=== PATIENT | female | born 1985 | race Caucasian/White ===

== ENCOUNTER 2016-07-01 19:28 | Emergency (ER) | payer MEDICARE, MEDICAID ==
[2016-07-01] MEDS ORDERED: NORCO 5/325MG TABLET (BULK) As Ordered ONE (21:04)
[2016-07-01] MEDS ORDERED: traMADol 50 MG TAB As Ordered ONE (21:20)
--- NOTE | 2016-07-01 21:34 | EDDOCDS ---
Physician Documentation [facility] Name: Ruth Ann Raya Age: 30 yrs Sex: Female : 1985 Arrival Date: 07/01/2016 Time: 19:28 Bed TR7 Private MD: Johnathan Levi Disposition: 07/01/16 21:05 Discharged to Home/Self Care. Impression: Nondisplaced fracture of medial phalanx of right lesser toe(s). - Condition is Stable. - Discharge Instructions: Toe Fracture. - Prescriptions for Ultram 50 mg Oral Tablet - take 1 tablet by ORAL route every 6 hours As needed MDD: 4 tabs; 16 tablet. - Medication Reconciliation, Local Pharmacy Hours form. - Follow up: Emergency Department; When: As needed; Reason: Worsening of conditions. Follow up: Drew Du DPM; When: Call to arrange an appointment; Reason: Wound/Symptom Recheck, Recheck today's complaints, Worsening of conditions, Continuance of care. - Problem is an ongoing problem. - Symptoms are unchanged. Historical: - Allergies: Zantac; Vancomycin; PENICILLINS; Erythromycin; ceftriaxone; Adhesives; Hydrocodone-Acetaminophen (Rash); - Home Meds: 1. carvedilol 6.25 mg oral tab 1 tab 2 times per day (Last dose: 07/01/2016 09:00) 2. lisinopril 10 mg oral tab (Last dose: 07/01/2016 10:00) 3. amlodipine 5 mg Oral tab 1 tab BID (Last dose: 07/01/2016 10:00) 4. Renvela 800 mg oral tab 2 tabs each meal (Last dose: 07/01/2016 16:00) 5. foslenol 1000 mg three times a day (Last dose: 07/01/2016 16:00) 6. Sensipar 60 mg oral tab 2 times per day (Last dose: 07/01/2016 10:00) 7. Vitamin D Oral 15100 unit weekly (Last dose: Unknown) - PMHx: ESRD; hypoparathyroid; Hypertension; - PSHx: AV Fistula- Right arm; parathyroidectomy; - Social history: Smoking status: Patient uses tobacco products, heavy tobacco smoker. Patient/guardian denies using alcohol, street drugs, No barriers to communication noted, The patient speaks fluent Luxembourgish, Speaks appropriately for age. - Family history: Not pertinent. - : The pt / caregiver states he / she is not on anticoagulants. Home medication list is obtained from the patient. - Exposure Risk Screening:: None identified. 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 4 in. (162.56 cm) (R); 20:38 BP 203 / 105; Pulse 84; Resp 18; lf1 19:29 Body Mass Index 22.33 (59.00 kg, 162.56 cm) dd6 20:38 Pt reports that she is due for her twice daily BP meds lf1 MDM: 19:54 Foot, Complete Ordered. EDMS 21:02 [facility] [place] Nursing [place] ordered. cc10 21:16 traMADol 50mg- 4 pack 1 packets PO Per package directions; Dispense with patient. Take cc10 1 tab every 6 hours as needed. ordered. 21:28 Financial registration complete. mpb 21:29 [facility] Payment Agreement was scanned into [employer] and attached to record. mpb Administered Medications: 21:11 CANCELLED (Patient Refused): HYDROcodone-acetaminophen 4 pack- 5 mg-325 mg 1 packets PO lf1 Per package directions; Dispense with patient. 1 po q4h prn for pain 21:29 Drug: traMADol 50mg- 4 pack 1 packets [tramadol 50 mg tablet (1 tabs)] {Co-Signature: lf1 rs3 (Sandy Fried RN).} Route: PO; 21:30 Follow up: Response: Med's dispensed home lf1 Signatures: Dispatcher [employer] EDMS Elda Mejias RN RN lf1 Nishi Kyle RN RN ttb Rajinder Alcantar PA-C PA-C cc10 Gonzalo Giron, Reg Reg mpb Sandy Fried RN rs3 The chart was reviewed and I authenticate all verbal orders and agree with the evaluation and treatment provided.Corrections: (The following items were deleted from the chart) 21:11 21:01 HYDROcodone-acetaminophen 4 pack- 5 mg-325 mg 1 packets PO Per package lf1 directions; Dispense with patient. 1 po q4h prn for pain ordered. cc10 21:11 21:11 HYDROcodone-acetaminophen 4 pack- 5 mg-325 mg 1 packets PO Per package lf1 directions; Dispense with patient. 1 po q4h prn for pain ordered. lf1 Attachments: 21:29 [facility] [place] [facility] [place] Agreement mpb MTDD
--- NOTE | 2016-07-01 21:34 | EDDOCDS ---
Nurse's Notes [facility] Name: Ruth Ann Raya Age: 30 yrs Sex: Female : 1985 Arrival Date: 07/01/2016 Time: 19:28 Bed TR7 Private MD: Johnathan Levi Diagnosis: Nondisplaced fracture of medial phalanx of right lesser toe(s) Presentation: 07/01 19:44 Presenting complaint: Patient states: pt stubbed her toe on night. Painful to ttb walk now. Bruising noted. Pt concerned and would like an xray of foot. Adult Sepsis Screening: The patient does not have new or worsening altered mentation. Patient's respiratory rate is less than 22. Systolic blood pressure is greater than 100. Patient has a qSOFA score of 0- Negative Sepsis Screen. Suicide/Homicide risk assessment- the patient denies having any suicidal and/or homicidal ideations and does not present with any other emotional, behavioral or mental health complaints. 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 Transition of care: patient was not received from another setting of care. 19:44 Acuity: RICKY Level 4 ttb 19:44 Method Of Arrival: Walkin/Carried/Asstd ttb Triage Assessment: 19:51 General: Appears in no apparent distress, well nourished, well groomed, Behavior is ttb appropriate for age, cooperative, pleasant. Pain: Location: right foot Pain currently is 7 out of 10 on a pain scale. HIV screening NA for this visit Offered previously. Neurological: Level of Consciousness is awake, alert. Cardiovascular: Chest pain is denied. Respiratory: No deficits noted. Airway is patent Denies cough, shortness of breath. GI: Denies nausea, vomiting, pain. Derm: Skin is normal, right foot bruising near 4th toe. Musculoskeletal: Reports pain in right foot. Injury Description: stubbed toe on baby gait. BI TESTER: 19:51 LMP 06/16/2016 ttb Historical: - Allergies: Zantac; Vancomycin; PENICILLINS; Erythromycin; ceftriaxone; Adhesives; Hydrocodone-Acetaminophen (Rash); - Home Meds: 1. carvedilol 6.25 mg oral tab 1 tab 2 times per day (Last dose: 07/01/2016 09:00) 2. lisinopril 10 mg oral tab (Last dose: 07/01/2016 10:00) 3. amlodipine 5 mg Oral tab 1 tab BID (Last dose: 07/01/2016 10:00) 4. Renvela 800 mg oral tab 2 tabs each meal (Last dose: 07/01/2016 16:00) 5. foslenol 1000 mg three times a day (Last dose: 07/01/2016 16:00) 6. Sensipar 60 mg oral tab 2 times per day (Last dose: 07/01/2016 10:00) 7. Vitamin D Oral 70474 unit weekly (Last dose: Unknown) - PMHx: ESRD; hypoparathyroid; Hypertension; - PSHx: AV Fistula- Right arm; parathyroidectomy; - Social history: Smoking status: Patient uses tobacco products, heavy tobacco smoker. Patient/guardian denies using alcohol, street drugs, No barriers to communication noted, The patient speaks fluent Wallisian, Speaks appropriately for age. - Family history: Not pertinent. - : The pt / caregiver states he / she is not on anticoagulants. Home medication list is obtained from the patient. - Exposure Risk Screening:: None identified. Screenin:38 Screening information is obtained from the patient. Fall risk: No risks identified. lf1 Assistance ADL's: requires no assistance with activities of daily living. Abuse/DV Screen: The patient / caregiver reports he/she is: not in a situation that causes fear, pain or injury. Nutritional screening: On renal diet. Advance Directives: Currently, there is a health care proxy, Jayne Raya (mother). home support is adequate. Assessment: 20:38 Adult Sepsis Screening: The patient does not have new or worsening altered mentation. lf1 Patient's respiratory rate is less than 22. Systolic blood pressure is greater than 100. Patient has a qSOFA score of 0- Negative Sepsis Screen. General: Appears comfortable, Behavior is cooperative. Pain: Location: right second toe Pain currently is 7 out of 10 on a pain scale. Pain began 4 days ago Aggravated by weight bearing. Neurological: Level of Consciousness is awake, alert. EENT: No deficits noted. Respiratory: Respiratory effort is even, unlabored. GI: Reports nausea, vomiting. Derm: Bruising that is dark purple, on right second toe Swollen area noted. Injury Description: stubbed toe on metal baby gate. 21:30 General: Appears in no apparent distress, comfortable, Behavior is cooperative. Pain: lf1 Location: right second toe. Neurological: Level of Consciousness is awake, alert. Respiratory: Respiratory effort is even, unlabored. GI: Denies nausea, vomiting. Derm: Swollen area noted on right second toe. 21:32 General: Pt reports she will be taking her regular BP meds when she gets home, provider lf1 aware. . Vital Signs: 19:29 BP 209 / 109; Pulse 92; Resp 18 S; Temp 97.1(O); Pulse Ox 100% on R/A; Weight 59 kg; dd6 Height 5 ft. 4 in. (162.56 cm) (R); 20:38 BP 203 / 105; Pulse 84; Resp 18; lf1 19:29 Body Mass Index 22.33 (59.00 kg, 162.56 cm) dd6 20:38 Pt reports that she is due for her twice daily BP meds lf1 Vitals: 19:29 Log In Time: July 01, 2016 at 19:27. dd6 ED Course: 19:29 Patient visited by Saravanan Marsh PCA. dd6 19:29 Johnathan Levi is Private Physician. dd6 19:29 Patient moved to Waiting dd6 19:30 Patient moved to Pre RCE dd6 19:45 Triage Initiated ttb 20:04 Patient moved to Triage 3 ar3 20:38 Patient visited by Elda Mejias,ALICIA. lf1 20:38 The patient / caregiver is instructed regarding the plan of care and ED course. lf1 20:43 Patient visited by Elda Mejias RN. lf1 20:50 Rajinder Alcantar PA-C is PHCP. cc10 20:50 Tony Beach DO is Attending Physician. cc10 20:50 Patient visited by Rajinder Alcantar PA-C. cc10 20:50 Patient visited by Rajinder Alcantar PA-C. cc10 21:05 Drew Du DPM is Referral Physician. cc10 21:28 Patient visited by Elda Mejias RN. lf1 21:29 [facility] Payment Agreement was scanned into [employer] and attached to record. mpb 21:30 Patient moved to TR7 ar3 21:30 No IV's were initiated during this patient's visit. No procedures done that require lf1 assistance. Administered Medications: 21:11 CANCELLED (Patient Refused): HYDROcodone-acetaminophen 4 pack- 5 mg-325 mg 1 packets PO lf1 Per package directions; Dispense with patient. 1 po q4h prn for pain 21:29 Drug: traMADol 50mg- 4 pack 1 packets [tramadol 50 mg tablet (1 tabs)] {Co-Signature: lf1 rs3 (Sandy Fried RN).} Route: PO; 21:30 Follow up: Response: Med's dispensed home lf1 Order Results: There are currently no results for this order. Outcome: 21:05 Discharge ordered by Provider. cc10 21:30 Discharge Assessment: Patient awake, alert and oriented x 3. No cognitive and/or lf1 functional deficits noted. Patient verbalized understanding of disposition instructions. Patient awake and alert. Oriented to person, place and time. Patient verbalized understanding of disposition instructions. Patient has no functional deficits. patient administered narcotics - yes. Pt provided with safe discharge. The following High Risk Discharge criteria are identified: None. Discharged to home via wheelchair, with family. Condition: unchanged. Discharge instructions given to patient, Instructed on discharge instructions, follow up and referral plans. medication usage, no driving heavy equipment, Demonstrated understanding of instructions, medications, Pt was receptive of discharge instructions/ teaching. Prescriptions given X 1. No special radiology studies were completed. Property :Personal belongings accompany Pt. 21:33 Patient left the ED. lf1 Signatures: Elda Mejias RN RN lf1 Saravanan Marsh, BUS MATRON BUS MATRON dd6 Francesca Pierson, BUS MATRON BUS MATRON ar3 Nishi Kyle RN RN ttb Rajinder Alcantar, PA-Андрей PA-C cc10 Gonzalo iGron, Reg Reg mpb Sandy Fried RN rs3 Corrections: (The following items were deleted from the chart) 21:11 21:09 HYDROcodone-acetaminophen 4 pack- 5 mg-325 mg 1 packets PO lf1 lf1 MTDD
--- NOTE | 2016-07-02 08:09 | REP ---
Clinical: Trauma. Technique: AP, lateral, bilateral oblique views of the right foot. Findings: No obvious acute fracture or dislocation appreciated. Oblique image demonstrates subtle irregularity at the base of the fourth middle phalanx which is likely normal, but should be correlated with mechanism of injury and point of maximal tenderness to exclude subtle avulsion injury. Skeletal structures, joint spaces, and surrounding soft tissues appear otherwise normal. Impression: No obvious acute fracture or dislocation; see above. If the patient remains symptomatic consider repeat evaluation in 5-7 days. Signed by Adama Rodarte MD 07/02/2016 08:00 A
--- NOTE | 2016-07-03 22:34 | EDDOCDS ---
Nurse's Notes [facility] Name: Ruth Ann Raya Age: 30 yrs Sex: Female : 1985 Arrival Date: 07/01/2016 Time: 19:28 Bed TR7 Private MD: Johnathan Levi Diagnosis: Nondisplaced fracture of medial phalanx of right lesser toe(s) Presentation: 07/01 19:44 Presenting complaint: Patient states: pt stubbed her toe on night. Painful to ttb walk now. Bruising noted. Pt concerned and would like an xray of foot. Adult Sepsis Screening: The patient does not have new or worsening altered mentation. Patient's respiratory rate is less than 22. Systolic blood pressure is greater than 100. Patient has a qSOFA score of 0- Negative Sepsis Screen. Suicide/Homicide risk assessment- the patient denies having any suicidal and/or homicidal ideations and does not present with any other emotional, behavioral or mental health complaints. 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 Transition of care: patient was not received from another setting of care. 19:44 Acuity: RICKY Level 4 ttb 19:44 Method Of Arrival: Walkin/Carried/Asstd ttb Triage Assessment: 19:51 General: Appears in no apparent distress, well nourished, well groomed, Behavior is ttb appropriate for age, cooperative, pleasant. Pain: Location: right foot Pain currently is 7 out of 10 on a pain scale. HIV screening NA for this visit Offered previously. Neurological: Level of Consciousness is awake, alert. Cardiovascular: Chest pain is denied. Respiratory: No deficits noted. Airway is patent Denies cough, shortness of breath. GI: Denies nausea, vomiting, pain. Derm: Skin is normal, right foot bruising near 4th toe. Musculoskeletal: Reports pain in right foot. Injury Description: stubbed toe on baby gait. 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 carvedilol 6.25 mg oral tab 1 tab 2 times per day (Last dose: 07/01/2016 09:00) 2. lisinopril 10 mg oral tab (Last dose: 07/01/2016 10:00) 3. amlodipine 5 mg Oral tab 1 tab BID (Last dose: 07/01/2016 10:00) 4. Renvela 800 mg oral tab 2 tabs each meal (Last dose: 07/01/2016 16:00) 5. foslenol 1000 mg three times a day (Last dose: 07/01/2016 16:00) 6. Sensipar 60 mg oral tab 2 times per day (Last dose: 07/01/2016 10:00) 7. Vitamin D Oral 61377 unit weekly (Last dose: Unknown) - PMHx: ESRD; hypoparathyroid; Hypertension; - PSHx: AV Fistula- Right arm; parathyroidectomy; - Social history: Smoking status: Patient uses tobacco products, heavy tobacco smoker. Patient/guardian denies using alcohol, street drugs, No barriers to communication noted, The patient speaks fluent Nigerian, Speaks appropriately for age. - Family history: Not pertinent. - : The pt / caregiver states he / she is not on anticoagulants. Home medication list is obtained from the patient. - Exposure Risk Screening:: None identified. Screenin:38 Screening information is obtained from the patient. Fall risk: No risks identified. lf1 Assistance ADL's: requires no assistance with activities of daily living. Abuse/DV Screen: The patient / caregiver reports he/she is: not in a situation that causes fear, pain or injury. Nutritional screening: On renal diet. Advance Directives: Currently, there is a health care proxy, Jayne Raya (mother). home support is adequate. Assessment: 20:38 Adult Sepsis Screening: The patient does not have new or worsening altered mentation. lf1 Patient's respiratory rate is less than 22. Systolic blood pressure is greater than 100. Patient has a qSOFA score of 0- Negative Sepsis Screen. General: Appears comfortable, Behavior is cooperative. Pain: Location: right second toe Pain currently is 7 out of 10 on a pain scale. Pain began 4 days ago Aggravated by weight bearing. Neurological: Level of Consciousness is awake, alert. EENT: No deficits noted. Respiratory: Respiratory effort is even, unlabored. GI: Reports nausea, vomiting. Derm: Bruising that is dark purple, on right second toe Swollen area noted. Injury Description: stubbed toe on metal baby gate. 21:30 General: Appears in no apparent distress, comfortable, Behavior is cooperative. Pain: lf1 Location: right second toe. Neurological: Level of Consciousness is awake, alert. Respiratory: Respiratory effort is even, unlabored. GI: Denies nausea, vomiting. Derm: Swollen area noted on right second toe. 21:32 General: Pt reports she will be taking her regular BP meds when she gets home, provider lf1 aware. . Vital Signs: 19:29 BP 209 / 109; Pulse 92; Resp 18 S; Temp 97.1(O); Pulse Ox 100% on R/A; Weight 59 kg; dd6 Height 5 ft. 4 in. (162.56 cm) (R); 20:38 BP 203 / 105; Pulse 84; Resp 18; lf1 19:29 Body Mass Index 22.33 (59.00 kg, 162.56 cm) dd6 20:38 Pt reports that she is due for her twice daily BP meds lf1 Vitals: 19:29 Log In Time: July 01, 2016 at 19:27. dd6 ED Course: 19:29 Patient visited by Saravanan Marsh PCA. dd6 19:29 Johnathan Levi is Private Physician. dd6 19:29 Patient moved to Waiting dd6 19:30 Patient moved to Pre RCE dd6 19:45 Triage Initiated ttb 20:04 Patient moved to Triage 3 ar3 20:38 Patient visited by Elda Mejias,ALICIA. lf1 20:38 The patient / caregiver is instructed regarding the plan of care and ED course. lf1 20:43 Patient visited by Elda Mejias RN. lf1 20:50 Rajinder Alcantar PA-C is PHCP. cc10 20:50 Tony Beach DO is Attending Physician. cc10 20:50 Patient visited by Rajinder Alcantar PA-C. cc10 20:50 Patient visited by Rajinder Alcantar PA-C. cc10 21:05 Drew Du DPM is Referral Physician. cc10 21:28 Patient visited by Elda Mejias RN. lf1 21:29 [facility] Payment Agreement was scanned into [employer] and attached to record. mpb 21:30 Patient moved to TR7 ar3 21:30 No IV's were initiated during this patient's visit. No procedures done that require lf1 assistance. 07/02 01:15 T-Sheet-- Draft Copy was scanned into [employer] and attached to record. hs2 08:43 Foot, Complete Returned. EDMS Administered Medications: 07/01 21:11 CANCELLED (Patient Refused): HYDROcodone-acetaminophen 4 pack- 5 mg-325 mg 1 packets PO lf1 Per package directions; Dispense with patient. 1 po q4h prn for pain 21:29 Drug: traMADol 50mg- 4 pack 1 packets [tramadol 50 mg tablet (1 tabs)] {Co-Signature: lf1 rs3 (Sandy Fried RN).} Route: PO; 21:30 Follow up: Response: Med's dispensed home lf1 Order Results: Radiology Order: Foot, Complete Test: Foot, Complete REASON FOR EXAMINATION: Trauma; Clinical: Trauma.; ; Technique: AP, lateral, bilateral oblique views of the right foot.; ; Findings:; No obvious acute fracture or dislocation appreciated. Oblique image demonstrates; subtle irregularity at the base of the fourth middle phalanx which is likely; normal, but should be correlated with mechanism of injury and point of maximal; tenderness to exclude subtle avulsion injury. Skeletal structures, joint spaces,; and surrounding soft tissues appear otherwise normal.; ; Impression:; No obvious acute fracture or dislocation; see above. If the patient remains; symptomatic consider repeat evaluation in 5-7 days.; ; ; Signed by; Adama Rodarte MD 07/02/2016 08:00 A; Outcome: 21:05 Discharge ordered by Provider. cc10 21:30 Discharge Assessment: Patient awake, alert and oriented x 3. No cognitive and/or lf1 functional deficits noted. Patient verbalized understanding of disposition instructions. Patient awake and alert. Oriented to person, place and time. Patient verbalized understanding of disposition instructions. Patient has no functional deficits. patient administered narcotics - yes. Pt provided with safe discharge. The following High Risk Discharge criteria are identified: None. Discharged to home via wheelchair, with family. Condition: unchanged. Discharge instructions given to patient, Instructed on discharge instructions, follow up and referral plans. medication usage, no driving heavy equipment, Demonstrated understanding of instructions, medications, Pt was receptive of discharge instructions/ teaching. Prescriptions given X 1. No special radiology studies were completed. Property :Personal belongings accompany Pt. 21:33 Patient left the ED. lf1 Signatures: Dispatcher [employer] EDMS Elda MejiasRN RN lf1 Saravanan Marsh, SHANK SORTER SHANK SORTER dd6 Francesca Pierson, SHANK SORTER SHANK SORTER ar3 Nishi Kyle RN RN ttb Rajinder Alcantar, PA-C PA-C cc10 Gonzalo Giron, Reg Reg mpb Josie Chen, Reg Reg hs2 Sandy Fried RN rs3 Corrections: (The following items were deleted from the chart) 21:11 21:09 HYDROcodone-acetaminophen 4 pack- 5 mg-325 mg 1 packets PO lf1 lf1 Chart Complete MTDD
--- NOTE | 2016-07-03 22:34 | EDDOCDS ---
Physician Documentation [facility] Name: Ruth Ann Raya Age: 30 yrs Sex: Female : 1985 Arrival Date: 07/01/2016 Time: 19:28 Bed TR7 Private MD: Johnathan Levi Disposition: 07/01/16 21:05 Discharged to Home/Self Care. Impression: Nondisplaced fracture of medial phalanx of right lesser toe(s). - Condition is Stable. - Discharge Instructions: Toe Fracture. - Prescriptions for Ultram 50 mg Oral Tablet - take 1 tablet by ORAL route every 6 hours As needed MDD: 4 tabs; 16 tablet. - Medication Reconciliation, Local Pharmacy Hours form. - Follow up: Emergency Department; When: As needed; Reason: Worsening of conditions. Follow up: Drew Du DPM; When: Call to arrange an appointment; Reason: Wound/Symptom Recheck, Recheck today's complaints, Worsening of conditions, Continuance of care. - Problem is an ongoing problem. - Symptoms are unchanged. Historical: - Allergies: Zantac; Vancomycin; PENICILLINS; Erythromycin; ceftriaxone; Adhesives; Hydrocodone-Acetaminophen (Rash); - Home Meds: 1. carvedilol 6.25 mg oral tab 1 tab 2 times per day (Last dose: 07/01/2016 09:00) 2. lisinopril 10 mg oral tab (Last dose: 07/01/2016 10:00) 3. amlodipine 5 mg Oral tab 1 tab BID (Last dose: 07/01/2016 10:00) 4. Renvela 800 mg oral tab 2 tabs each meal (Last dose: 07/01/2016 16:00) 5. foslenol 1000 mg three times a day (Last dose: 07/01/2016 16:00) 6. Sensipar 60 mg oral tab 2 times per day (Last dose: 07/01/2016 10:00) 7. Vitamin D Oral 33069 unit weekly (Last dose: Unknown) - PMHx: ESRD; hypoparathyroid; Hypertension; - PSHx: AV Fistula- Right arm; parathyroidectomy; - Social history: Smoking status: Patient uses tobacco products, heavy tobacco smoker. Patient/guardian denies using alcohol, street drugs, No barriers to communication noted, The patient speaks fluent Syrian, Speaks appropriately for age. - Family history: Not pertinent. - : The pt / caregiver states he / she is not on anticoagulants. Home medication list is obtained from the patient. - Exposure Risk Screening:: None identified. 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 4 in. (162.56 cm) (R); 20:38 BP 203 / 105; Pulse 84; Resp 18; lf1 19:29 Body Mass Index 22.33 (59.00 kg, 162.56 cm) dd6 20:38 Pt reports that she is due for her twice daily BP meds lf1 MDM: 19:54 Foot, Complete Ordered. EDMS 21:02 [facility] [place]. Nursing [place] ordered. cc10 21:16 traMADol 50mg- 4 pack 1 packets PO Per package directions; Dispense with patient. Take cc10 1 tab every 6 hours as needed. ordered. 21:28 Financial registration complete. [facility] 21:29 [facility] Payment Agreement was scanned into [employer] and attached to record. [facility] 07/02 01:15 T-Sheet-- Draft Copy was scanned into [employer] and attached to record. hs2 Administered Medications: 07/01 21:11 CANCELLED (Patient Refused): HYDROcodone-acetaminophen 4 pack- 5 mg-325 mg 1 packets PO lf1 Per package directions; Dispense with patient. 1 po q4h prn for pain 21:29 Drug: traMADol 50mg- 4 pack 1 packets [tramadol 50 mg tablet (1 tabs)] {Co-Signature: lf1 rs3 (Sandy Fried RN).} Route: PO; 21:30 Follow up: Response: Med's dispensed home lf1 Signatures: Dispatcher [employer] EDMS Elda Mejias RN RN lf1 Nishi Kyle RN RN ttb Rajinder Alcantar, PAAnnabelC PA-C cc10 Gonzalo Giron, Reg Reg mpb Josie Chen, Reg Reg hs2 Sandy Fried RN rs3 The chart was reviewed and I authenticate all verbal orders and agree with the evaluation and treatment provided.Corrections: (The following items were deleted from the chart) 21:11 21:01 HYDROcodone-acetaminophen 4 pack- 5 mg-325 mg 1 packets PO Per package lf1 directions; Dispense with patient. 1 po q4h prn for pain ordered. cc10 21:11 21:11 HYDROcodone-acetaminophen 4 pack- 5 mg-325 mg 1 packets PO Per package lf1 directions; Dispense with patient. 1 po q4h prn for pain ordered. lf1 Attachments: 21:29 [facility] Payment Agreement mpb 07/02 01:15 T-Sheet-- Draft Copy hs2 Chart Complete MTDD
--- NOTE | 2016-07-03 22:34 | EDDOCDS ---
Physician Documentation [facility] Name: Ruth Ann Raya Age: 30 yrs Sex: Female : 1985 Arrival Date: 07/01/2016 Time: 19:28 Bed TR7 Private MD: Johnathan Levi Disposition: 07/01/16 21:05 Discharged to Home/Self Care. Impression: Nondisplaced fracture of medial phalanx of right lesser toe(s). - Condition is Stable. - Discharge Instructions: Toe Fracture. - Prescriptions for Ultram 50 mg Oral Tablet - take 1 tablet by ORAL route every 6 hours As needed MDD: 4 tabs; 16 tablet. - Medication Reconciliation, Local Pharmacy Hours form. - Follow up: Emergency Department; When: As needed; Reason: Worsening of conditions. Follow up: Drew Du DPM; When: Call to arrange an appointment; Reason: Wound/Symptom Recheck, Recheck today's complaints, Worsening of conditions, Continuance of care. - Problem is an ongoing problem. - Symptoms are unchanged. Historical: - Allergies: Zantac; Vancomycin; PENICILLINS; Erythromycin; ceftriaxone; Adhesives; Hydrocodone-Acetaminophen (Rash); - Home Meds: 1. carvedilol 6.25 mg oral tab 1 tab 2 times per day (Last dose: 07/01/2016 09:00) 2. lisinopril 10 mg oral tab (Last dose: 07/01/2016 10:00) 3. amlodipine 5 mg Oral tab 1 tab BID (Last dose: 07/01/2016 10:00) 4. Renvela 800 mg oral tab 2 tabs each meal (Last dose: 07/01/2016 16:00) 5. foslenol 1000 mg three times a day (Last dose: 07/01/2016 16:00) 6. Sensipar 60 mg oral tab 2 times per day (Last dose: 07/01/2016 10:00) 7. Vitamin D Oral 57569 unit weekly (Last dose: Unknown) - PMHx: ESRD; hypoparathyroid; Hypertension; - PSHx: AV Fistula- Right arm; parathyroidectomy; - Social history: Smoking status: Patient uses tobacco products, heavy tobacco smoker. Patient/guardian denies using alcohol, street drugs, No barriers to communication noted, The patient speaks fluent Congolese, Speaks appropriately for age. - Family history: Not pertinent. - : The pt / caregiver states he / she is not on anticoagulants. Home medication list is obtained from the patient. - Exposure Risk Screening:: None identified. METER TESTER: 07/01 19:51 LMP 06/16/2016 ttb Vital Signs: 19:29 BP 209 / 109; Pulse 92; Resp 18 S; Temp 97.1(O); Pulse Ox 100% on R/A; Weight 59 kg / dd6 130.07 lbs; Height 5 ft. 4 in. (162.56 cm) (R); 20:38 BP 203 / 105; Pulse 84; Resp 18; lf1 19:29 Body Mass Index 22.33 (59.00 kg, 162.56 cm) dd6 20:38 Pt reports that she is due for her twice daily BP meds lf1 MDM: 19:54 Foot, Complete Ordered. EDMS 21:02 [facility] – [place]. Nursing Order ordered. cc10 21:16 traMADol 50mg- 4 pack 1 packets PO Per package directions; Dispense with patient. Take cc10 1 tab every 6 hours as needed. ordered. 21:28 Financial registration complete. [facility] 21:29 [facility] Payment Agreement was scanned into [employer] and attached to record. [facility] 07/02 01:15 T-Sheet-- Draft Copy was scanned into [employer] and attached to record. hs2 Administered Medications: 07/01 21:11 CANCELLED (Patient Refused): HYDROcodone-acetaminophen 4 pack- 5 mg-325 mg 1 packets PO lf1 Per package directions; Dispense with patient. 1 po q4h prn for pain 21:29 Drug: traMADol 50mg- 4 pack 1 packets [tramadol 50 mg tablet (1 tabs)] {Co-Signature: lf1 rs3 (Sandy Fried RN).} Route: PO; 21:30 Follow up: Response: Med's dispensed home lf1 Signatures: Dispatcher [employer] EDMS Elda Mejias RN RN lf1 Nishi Kyle RN RN ttb Rajinder Alcantar, PAAnnabelC PA-C cc10 Gonzalo Giron, Reg Reg mpb Josie Chen, Reg Reg hs2 Sandy Fried RN rs3 The chart was reviewed and I authenticate all verbal orders and agree with the evaluation and treatment provided.Corrections: (The following items were deleted from the chart) 21:11 21:01 HYDROcodone-acetaminophen 4 pack- 5 mg-325 mg 1 packets PO Per package lf1 directions; Dispense with patient. 1 po q4h prn for pain ordered. cc10 21:11 21:11 HYDROcodone-acetaminophen 4 pack- 5 mg-325 mg 1 packets PO Per package lf1 directions; Dispense with patient. 1 po q4h prn for pain ordered. lf1 Attachments: 21:29 [facility] Payment Agreement mpb 07/02 01:15 T-Sheet-- Draft Copy hs2 Chart Complete MTDD
== END 2016-07-01 21:33 | disposition home or self-care (01) ==
LOC: M ED 19:28
DX: S99.921A Unspecified injury of right foot, initial encounter (principal); W22.03XA Walked into furniture, initial encounter; Y92.019 Unspecified place in single-family (private) house as the place of occurrence of the external cause; Y93.89 Activity, other specified; Y99.8 Other external cause status; N18.6 End stage renal disease; E20.9 Hypoparathyroidism, unspecified; I12.0 Hypertensive chronic kidney disease with stage 5 chronic kidney disease or end stage renal disease; Z90.89 Acquired absence of other organs; Z72.0 Tobacco use; Z79.899 Other long term (current) drug therapy; Z88.0 Allergy status to penicillin; Z88.1 Allergy status to other antibiotic agents; Z88.5 Allergy status to narcotic agent; Z88.8 Allergy status to other drugs, medicaments and biological substances

== ENCOUNTER 2017-12-16 16:58 | Inpatient (IN) | payer MEDICARE, MEDICAID ==
[2017-12-16] MEDS: ONDANSETRON 4MG/2ML VIAL (J2405) IV (15:30)
[2017-12-16] MEDS: ALBUTEROL SULFATE 2.5 MG/0.5 ML INH NEB SOLN INH (15:30)
[2017-12-16] MEDS: ACETAMINOPHEN 325 MG TAB PO (15:45)
[2017-12-16] MEDS: methylPREDNISolone INJ 125 MG/2 ML VIAL (J2930) IV (15:45)
[2017-12-16 15:51] LABS: BASO % 0.5 % (0.0-1.0); EOS # 0.1 10^3/uL (0.0-0.50); EOS % 2.3 % (0.0-3.0); HEMATOCRIT 32.5 % (36.0-47.0); HEMOGLOBIN 11.1 g/dl (12.0-15.5); LYMPH # 0.7 10^3/uL (1.5-4.5); MEAN CORPUSCULAR HEMOGLOBIN 27.5 pg (27.0-33.0); MEAN CORPUSCULAR HGB CONC 34.2 g/dl (32.0-36.5); MEAN CORPUSCULAR VOLUME 80.6 fl (80.0-96.0); MONO # 0.2 10^3/uL (0.0-0.8); MONO % 2.4 % (0.0-5.0); NEUTROPHILS # 5.1 10^3/uL (1.8-7.7); NEUTROPHILS % 81.8 % (36.0-66.0); PLATELET COUNT, AUTOMATED 150 10^3/uL (150-450); RED BLOOD COUNT 4.03 10^6/uL (4.00-5.40); RED CELL DISTRIBUTION WIDTH 16.4 % (11.5-14.5); WHITE BLOOD COUNT 6.2 10^3/uL (4.0-10.0)
[2017-12-16 16:04] LABS: INR 1.25; PROTHROMBIN TIME 15.9 SECONDS (12.4-14.5)
[2017-12-16 16:05] LABS: PARTIAL THROMBOPLASTIN TIME 33.8 SECONDS (26.8-37.9)
[2017-12-16] MEDS: IPRATROPIUM 0.5MG/ALBUTEROL 2.5MG INH SOL UD 3ML (DUONEB)(J7620) NEB (16:10)
[2017-12-16 16:14] LABS: ABG BASE EXCESS 1.8 (-2.0-2.0); ABG HCO3 23.6 MEQ/L (22.0-26.0); ABG O2 SATURATION 93.3 % (95.0-99.0); ABG PARTIAL PRESSURE CO2 28.7 mmHg (35.0-45.0); ABG PARTIAL PRESSURE O2 62.5 mmHg (75.0-100.0); ABG TOTAL CO2 24.5 MEQ/L (22.0-29.0); ABG pH (ARTERIAL) 7.533 UNITS (7.350-7.450)
[2017-12-16 16:19] LABS: ALBUMIN 3.4 GM/DL (3.2-5.2); ALBUMIN/GLOBULIN RATIO 0.81 (1.00-1.93); ALKALINE PHOSPHATASE 181 U/L (45-117); ALT/SGPT 18 U/L (12-78); AMYLASE 61 U/L (25-115); ANION GAP 13 MEQ/L (8-16); AST/SGOT 15 U/L (7-37); BILIRUBIN,DIRECT 0.3 MG/DL (0.0-0.2); BILIRUBIN,TOTAL 0.9 MG/DL (0.2-1.0); BLOOD UREA NITROGEN 24 MG/DL (7-18); CALCIUM LEVEL 8.1 MG/DL (8.5-10.1); CARBON DIOXIDE LEVEL 26 MEQ/L (21-32); CHLORIDE LEVEL 97 MEQ/L (98-107); CPK CREATINE PHOSPHOKINASE 71 U/L (26-192); CREATININE FOR GFR 5.44 MG/DL (0.55-1.30); GLOMERULAR FILTRATION RATE 9.8 (>60); GLUCOSE, FASTING 94 MG/DL (70-100); LIPASE 109 U/L (73-393); POTASSIUM SERUM 3.7 MEQ/L (3.5-5.1); SODIUM LEVEL 136 MEQ/L (136-145); TOTAL PROTEIN 7.6 GM/DL (6.4-8.2); TROPONIN I < 0.02 NG/ML (< 0.10)
[2017-12-16 16:25] LABS: CK-MB VALUE MASS < 1.0 NG/ML (<3.6)
[2017-12-16 16:34] LABS: LACTIC ACID SEPSIS PROTOCOL 1.5 MMOL/L (0.4-2.0)
[2017-12-16 18:14] LABS: KETONE, URINE AUTO RFX NEGATIVE (NEGATIVE); MUCUS, URINE RFX SMALL (NEGATIVE); NITRITE, URINE AUTO RFX NEGATIVE (NEGATIVE); RBC, URINE AUTO RFX 67 /HPF (0-3); SPECIFIC GRAVITY UR AUTO RFX 1.005 (1.002-1.035); SQUAM EPITHELIAL CELL UR AURFX 16 /HPF (0-6)
[2017-12-16] MEDS ORDERED: ONDANSETRON 4MG/2ML VIAL (J2405) IV (18:15)
[2017-12-16 18:19] LABS: LEUKOCYTE ESTERASE UR AUTO RFX 3+ (NEGATIVE); WBC, URINE AUTO RFX TNTC /HPF (0-3)
[2017-12-16] MEDS ORDERED: IPRATROPIUM 0.5MG/ALBUTEROL 2.5MG INH SOL UD 3ML (DUONEB)(J7620) NEB (18:30)
[2017-12-16] MEDS: LevoFLOXacin IV 500 MG in APPROPRIATE DILUENT 1 EA IV (21:02)
[2017-12-16] MEDS: HEPARIN SOD (PORCINE) 5000 UNITS/ML VIAL SC (21:03)
[2017-12-16] MEDS: LISINOPRIL 20 MG TAB PO (21:03)
[2017-12-16] MEDS: CARVedilol 12.5 MG TAB PO (21:04)
[2017-12-16] MEDS: amLODIPine 10 MG TAB PO (21:04)
[2017-12-17] MEDS: HEPARIN SOD (PORCINE) 5000 UNITS/ML VIAL SC ×3 (05:30→20:57)
[2017-12-17 06:12] LABS: BASO % 0.7 % (0.0-1.0); HEMATOCRIT 32.9 % (36.0-47.0); HEMOGLOBIN 11.1 g/dl (12.0-15.5); IMMATURE GRANULOCYTE % 0.5 % (0-3.0); LYMPH # 0.5 10^3/uL (1.5-4.5); LYMPH % 9.1 % (24.0-44.0); MEAN CORPUSCULAR HEMOGLOBIN 27.5 pg (27.0-33.0); MEAN CORPUSCULAR HGB CONC 33.7 g/dl (32.0-36.5); MEAN CORPUSCULAR VOLUME 81.4 fl (80.0-96.0); MONO # 0.2 10^3/uL (0.0-0.8); MONO % 3.3 % (0.0-5.0); NEUTROPHILS # 4.7 10^3/uL (1.8-7.7); NEUTROPHILS % 86.4 % (36.0-66.0); PLATELET COUNT, AUTOMATED 156 10^3/uL (150-450); RED BLOOD COUNT 4.04 10^6/uL (4.00-5.40); RED CELL DISTRIBUTION WIDTH 16.8 % (11.5-14.5); WHITE BLOOD COUNT 5.5 10^3/uL (4.0-10.0)
[2017-12-17 06:43] LABS: ANION GAP 12 MEQ/L (8-16); BLOOD UREA NITROGEN 39 MG/DL (7-18); CALCIUM LEVEL 7.5 MG/DL (8.5-10.1); CARBON DIOXIDE LEVEL 24 MEQ/L (21-32); CHLORIDE LEVEL 98 MEQ/L (98-107); CREATININE FOR GFR 7.71 MG/DL (0.55-1.30); GLOMERULAR FILTRATION RATE 6.6 (>60); GLUCOSE, FASTING 145 MG/DL (70-100); POTASSIUM SERUM 4.4 MEQ/L (3.5-5.1); SODIUM LEVEL 134 MEQ/L (136-145)
[2017-12-17] MEDS: CARVedilol 12.5 MG TAB PO ×2 (08:31→20:56)
[2017-12-17] MEDS: amLODIPine 10 MG TAB PO ×2 (08:31→20:56)
[2017-12-17] MEDS: LISINOPRIL 20 MG TAB PO ×2 (08:31→20:56)
[2017-12-17] MEDS: CINACALCET 30 MG TAB (SENSIPAR) PO (08:32)
[2017-12-17] MEDS: LANTHANUM CARBONATE 500 MG CHEW TABLET PO ×2 (11:57→17:58)
[2017-12-17] MEDS ORDERED: ONDANSETRON 4 MG TAB (S0181) PO (15:45)
[2017-12-17] MEDS: (RENVELA) SEVELAMER **CARBONate** 800 MG TAB PO (17:57)
[2017-12-17] MEDS: LevoFLOXacin 250 MG TABLET PO (17:58)
[2017-12-17] MEDS ORDERED: LANTHANUM CARBONATE 500 MG CHEW TABLET PO (18:00)
[2017-12-17] MEDS: ACETAMINOPHEN TAB 650MG DOSE (2X325MG) PO (19:39)
[2017-12-18] MEDS: HEPARIN SOD (PORCINE) 5000 UNITS/ML VIAL SC ×3 (06:32→21:18)
[2017-12-18] MEDS: LANTHANUM CARBONATE 500 MG CHEW TABLET PO ×3 (09:50→17:12)
[2017-12-18] MEDS: (RENVELA) SEVELAMER **CARBONate** 800 MG TAB PO ×3 (09:50→17:12)
[2017-12-18] MEDS: amLODIPine 10 MG TAB PO ×2 (09:51→17:12)
[2017-12-18] MEDS: CARVedilol 12.5 MG TAB PO ×2 (09:51→17:12)
[2017-12-18] MEDS: LISINOPRIL 20 MG TAB PO ×2 (09:51→21:19)
[2017-12-18] MEDS: CINACALCET 30 MG TAB (SENSIPAR) PO (09:51)
[2017-12-18] MEDS: LIDOCAINE 1% SDV 5 ML VIAL SQ (14:00)
[2017-12-18] MEDS: HEPARIN 1,000 UNITS/ML 10ML VIAL (FOR RADIOLOGY& DIALYSIS ONLY) IV (14:00)
[2017-12-18] MEDS: LINEZOLID 600 MG in APPROPRIATE DILUENT 1 EA IV (17:32)
[2017-12-18] MEDS: **hydrALAZINE** 10 MG TAB PO (19:16)
[2017-12-19] MEDS: LINEZOLID 600 MG in APPROPRIATE DILUENT 1 EA IV (01:47)
[2017-12-19] MEDS: ACETAMINOPHEN TAB 650MG DOSE (2X325MG) PO (01:48)
[2017-12-19] MEDS: HEPARIN SOD (PORCINE) 5000 UNITS/ML VIAL SC (06:26)
[2017-12-19 07:36] LABS: HEMATOCRIT 33.1 % (36.0-47.0); HEMOGLOBIN 10.9 g/dl (12.0-15.5); MEAN CORPUSCULAR HEMOGLOBIN 27.4 pg (27.0-33.0); MEAN CORPUSCULAR HGB CONC 32.9 g/dl (32.0-36.5); MEAN CORPUSCULAR VOLUME 83.2 fl (80.0-96.0); PLATELET COUNT, AUTOMATED 171 10^3/uL (150-450); RED BLOOD COUNT 3.98 10^6/uL (4.00-5.40); RED CELL DISTRIBUTION WIDTH 16.9 % (11.5-14.5); WHITE BLOOD COUNT 5.6 10^3/uL (4.0-10.0)
[2017-12-19 07:56] LABS: ANION GAP 9 MEQ/L (8-16); BLOOD UREA NITROGEN 27 MG/DL (7-18); CALCIUM LEVEL 7.7 MG/DL (8.5-10.1); CARBON DIOXIDE LEVEL 27 MEQ/L (21-32); CHLORIDE LEVEL 101 MEQ/L (98-107); CREATININE FOR GFR 6.64 MG/DL (0.55-1.30); GLOMERULAR FILTRATION RATE 7.8 (>60); GLUCOSE, FASTING 89 MG/DL (70-100); POTASSIUM SERUM 4.3 MEQ/L (3.5-5.1); SODIUM LEVEL 137 MEQ/L (136-145)
[2017-12-19] MEDS: CINACALCET 30 MG TAB (SENSIPAR) PO (08:43)
[2017-12-19] MEDS: amLODIPine 10 MG TAB PO (08:44)
[2017-12-19] MEDS: LISINOPRIL 20 MG TAB PO (08:44)
[2017-12-19] MEDS: LANTHANUM CARBONATE 500 MG CHEW TABLET PO ×2 (08:44→13:56)
[2017-12-19] MEDS: (RENVELA) SEVELAMER **CARBONate** 800 MG TAB PO ×2 (08:44→13:56)
[2017-12-19] MEDS: CARVedilol 12.5 MG TAB PO (08:44)
[2017-12-19 10:16] LABS: PHOSPHORUS LEVEL 3.4 MG/DL (2.5-4.9)
[2017-12-19 10:25] LABS: PTH INTACT 1204.1 PG/ML (18.5-88.0)
== END 2017-12-19 14:05 | disposition home or self-care (01) | DRG 689 ==
LOC: M MSPAV 12-17 10:58 → M ED 16:58 → M ED INP 18:03 → M MSPAV 20:29
PROC: 5A1D70Z Performance of Urinary Filtration, Intermittent, Less than 6 Hours Per Day (ICD-10-PCS; principal; 2017-12-18)
DX: N39.0 Urinary tract infection, site not specified (principal); N18.6 End stage renal disease; I12.0 Hypertensive chronic kidney disease with stage 5 chronic kidney disease or end stage renal disease; N25.81 Secondary hyperparathyroidism of renal origin; N10 Acute pyelonephritis; J45.909 Unspecified asthma, uncomplicated; Z79.899 Other long term (current) drug therapy; Z88.0 Allergy status to penicillin; Z88.2 Allergy status to sulfonamides; Z88.1 Allergy status to other antibiotic agents; Z88.8 Allergy status to other drugs, medicaments and biological substances; F17.200 Nicotine dependence, unspecified, uncomplicated; D63.1 Anemia in chronic kidney disease

== ENCOUNTER 2018-08-25 10:50 | Emergency (ER) | payer MEDICARE, MEDICAID ==
[~2018-08-25] VITALS: Ht 162.6 cm; Wt 56.5 kg
[~2018-08-25 10:50] MED LIST: AMLO10TA5; AMLO10TA5 PO; CARV12.5; CARV12.5 PO; CORE25TA PO; FOSR1000; FOSR1000 PO; LEVA250T13 PO; LISI-538; LISI-538 PO; RENV2TAB; RENV2TAB PO; SENS60TA; SENS60TA PO; TYLE325T5 PO; ZYVO1TAB PO
[2018-08-25 11:45] VITALS: BP 198/104
[2018-08-25] MEDS ORDERED: ONDANSETRON 4 MG ORAL DISINTEGRATING TAB (Q0162 PER 1MG) PO ONE (11:45)
[2018-08-25] MEDS ORDERED: CARVedilol 12.5 MG TAB PO ONE (11:45)
[2018-08-25] MEDS ORDERED: LISINOPRIL 20 MG TAB PO ONE (11:45)
[2018-08-25] MEDS ORDERED: amLODIPine 10 MG TAB PO ONE (11:45)
[2018-08-25] MEDS ORDERED: ONDA4TAB6 PO (13:38)
[2018-08-25 13:42] VITALS: BP 176/95
== END 2018-08-25 13:52 | disposition home or self-care (01) ==
LOC: M ED 10:50
DX: R11.2 Nausea with vomiting, unspecified (principal); I10 Essential (primary) hypertension; N18.6 End stage renal disease; Z79.899 Other long term (current) drug therapy; Z91.89 Other specified personal risk factors, not elsewhere classified; Z88.8 Allergy status to other drugs, medicaments and biological substances; Z88.0 Allergy status to penicillin; Z88.1 Allergy status to other antibiotic agents
CPT/HCPCS: 99283; Q0162

== ENCOUNTER 2018-09-08 16:03 | Inpatient (IN) | payer MEDICARE, MEDICAID ==
[~2018-09-08] VITALS: Ht 162.6 cm; Wt 56.5 kg
[2018-09-08] MEDS: predniSONE 20 MG TAB PO SCH (02:38)
[~2018-09-08 16:03] MED LIST changes: +ONDA4TAB6 PO
[2018-09-08] MEDS ORDERED: IPRATROPIUM 0.5MG/ALBUTEROL 2.5MG INH SOL UD 3ML (DUONEB)(J7620) NEB ONE (17:15)
--- NOTE | 2018-09-08 17:16 | REP ---
Chest x-ray: Two views. History: Wheezing and shortness of breath. Comparison chest x-ray: December 16, 2017. Findings: The lungs are symmetrically aerated and free of infiltrate. Pleural angles are sharp. Pulmonary vasculature is not increased. There are multiple surgical clips in the soft tissues of the neck bilaterally suggesting previous thyroid surgery. Heart is somewhat prominent with cardiothoracic ratio measuring 54.2%. No evidence of pulmonary edema or pleural effusion. Impression: Mildly prominent heart, CT ratio 54.2%. No infiltrate, pleural effusion, or pulmonary edema seen. Surgical clips in the soft tissues of the neck suggesting previous thyroid surgery. Electronically Signed by Harish Lino MD 09/08/2018 07:57 P
[2018-09-08 17:58] LABS: INFLUENZA A AMPLIFICATION NEGATIVE (NEGATIVE); INFLUENZA B AMPLIFICATION NEGATIVE (NEGATIVE)
[2018-09-08 18:24] LABS: HEMATOCRIT 37.3 % (36.0-47.0); HEMOGLOBIN 12.5 g/dl (12.0-15.5); MEAN CORPUSCULAR HEMOGLOBIN 28.7 pg (27.0-33.0); MEAN CORPUSCULAR HGB CONC 33.5 g/dl (32.0-36.5); MEAN CORPUSCULAR VOLUME 85.6 fl (80.0-96.0); PLATELET COUNT, AUTOMATED 227 10^3/uL (150-450); RED BLOOD COUNT 4.36 10^6/uL (4.00-5.40); WHITE BLOOD COUNT 9.2 10^3/uL (4.0-10.0)
--- NOTE | 2018-09-08 18:25 | REP ---
CT CHEST WITHOUT IV CONTRAST: CT chest was performed without IV contrast. Sagittal and coronal reconstruction images are performed. The lungs are free of infiltrate or other abnormal parenchymal opacities. Heart is upper limits of normal in size to slightly enlarged. Multiple subcentimeter axillary and mediastinal lymph nodes are present. There is a mildly enlarged subcarinal lymph node approximately 1.7 cm in short axis dimension. There is no pleural or pericardial effusion. Multiple metallic clips are seen in the region of the thyroid bilaterally. In the visualized upper abdomen, note is made of significant bilateral renal atrophy as seen on prior CT of the abdomen 12/16/2017. IMPRESSION: Heart is upper limits of normal in size to slightly enlarged. There is mildly enlarged subcardinal lymph node 1.7 cm in short axis dimension. Significant renal atrophy again noted. Electronically Signed by Dewayne Tucker MD 09/09/2018 01:34 P
[2018-09-08 19:11] LABS: BLOOD UREA NITROGEN 19 MG/DL (7-18); CALCIUM LEVEL 9.2 MG/DL (8.5-10.1); CARBON DIOXIDE LEVEL 29 MEQ/L (21-32); CHLORIDE LEVEL 99 MEQ/L (98-107); CK-MB VALUE MASS < 1.0 NG/ML (<3.6); CPK CREATINE PHOSPHOKINASE 39 U/L (26-192); CREATININE FOR GFR 5.49 MG/DL (0.55-1.30); GLOMERULAR FILTRATION RATE 9.7 (>60); GLUCOSE, FASTING 104 MG/DL (70-100); MB/CK RELATIVE INDEX 2.56 (< OR =4); NT-PRO BNP 57329 PG/ML (<125); POTASSIUM SERUM 3.8 MEQ/L (3.5-5.1); SODIUM LEVEL 137 MEQ/L (136-145); TROPONIN I < 0.02 NG/ML (< 0.10)
[2018-09-08] MEDS ORDERED: LISINOPRIL 20 MG TAB PO ONE (19:30)
[2018-09-08] MEDS ORDERED: CARVedilol 12.5 MG TAB PO ONE (19:30)
[2018-09-08] MEDS ORDERED: cloNIDine 0.2 MG TAB PO ONE (21:30)
[2018-09-08] MEDS ORDERED: CALC1CAP PO (21:51)
[2018-09-08] MEDS ORDERED: VELT1POW PO (21:51)
[2018-09-08] MEDS ORDERED: ONDA4TAB6 PO (21:51)
[2018-09-08] MEDS ORDERED: ONDANSETRON 4MG/2ML VIAL (J2405) IV ONE (22:15)
[2018-09-08] MEDS ORDERED: **hydrALAZINE** 50 MG TAB PO ONE (23:00)
[2018-09-09] VITALS (7 sets, daily range): BP systolic 152–224; BP diastolic 80–110
[2018-09-09] MEDS ORDERED: PERCOCET 5MG/325MG TAB PO PRN (00:30)
[2018-09-09] MEDS ORDERED: ONDANSETRON 4 MG TAB (S0181) PO PRN (00:30)
[2018-09-09] MEDS ORDERED: MORPHINE 4 MG/ML 1ML VIAL/SYRINGE (J2270) IV PRN (00:30)
[2018-09-09] MEDS ORDERED: ACETAMINOPHEN TAB 650MG DOSE (2X325MG) PO PRN (00:30)
[2018-09-09 00:41] LABS: BASO # 0.1 10^3/uL (0.0-0.2); BASO % 0.8 % (0.0-1.0); EOS # 0.3 10^3/uL (0.0-0.50); EOS % 4.3 % (0.0-3.0); HEMATOCRIT 31.4 % (36.0-47.0); LYMPH # 1.6 10^3/uL (1.5-4.5); LYMPH % 21.6 % (24.0-44.0); MEAN CORPUSCULAR HEMOGLOBIN 28.8 pg (27.0-33.0); MEAN CORPUSCULAR HGB CONC 33.4 g/dl (32.0-36.5); MEAN CORPUSCULAR VOLUME 86.3 fl (80.0-96.0); MONO # 0.5 10^3/uL (0.0-0.8); MONO % 6.3 % (0.0-5.0); NEUTROPHILS # 5.1 10^3/uL (1.8-7.7); NEUTROPHILS % 66.7 % (36.0-66.0); PLATELET COUNT, AUTOMATED 188 10^3/uL (150-450); RED BLOOD COUNT 3.64 10^6/uL (4.00-5.40); WHITE BLOOD COUNT 7.6 10^3/uL (4.0-10.0)
[2018-09-09 00:48] LABS: HEMOGLOBIN 10.5 g/dl (12.0-15.5)
[2018-09-09] MEDS ORDERED: IPRATROPIUM 0.5MG/ALBUTEROL 2.5MG INH SOL UD 3ML (DUONEB)(J7620) NEB PRN (04:00)
[2018-09-09] MEDS ORDERED: hydrALAZINE INJ 20 MG/ML VIAL IV STA (04:26)
[2018-09-09 05:13] LABS: BASO # 0.1 10^3/uL (0.0-0.2); BASO % 0.8 % (0.0-1.0); EOS # 0.3 10^3/uL (0.0-0.50); HEMOGLOBIN 10.6 g/dl (12.0-15.5); LYMPH # 1.5 10^3/uL (1.5-4.5); LYMPH % 18.3 % (24.0-44.0); MEAN CORPUSCULAR HEMOGLOBIN 28.3 pg (27.0-33.0); MEAN CORPUSCULAR HGB CONC 33.1 g/dl (32.0-36.5); MEAN CORPUSCULAR VOLUME 85.6 fl (80.0-96.0); MONO # 0.5 10^3/uL (0.0-0.8); MONO % 6.8 % (0.0-5.0); NEUTROPHILS # 5.5 10^3/uL (1.8-7.7); NEUTROPHILS % 69.7 % (36.0-66.0); PLATELET COUNT, AUTOMATED 195 10^3/uL (150-450); RED BLOOD COUNT 3.74 10^6/uL (4.00-5.40); WHITE BLOOD COUNT 7.9 10^3/uL (4.0-10.0)
[2018-09-09] MEDS: HEPARIN SOD (PORCINE) 5000 UNITS/ML VIAL SC SCH ×2 (05:21→12:56)
[2018-09-09 05:36] LABS: BLOOD UREA NITROGEN 25 MG/DL (7-18); CALCIUM LEVEL 8.4 MG/DL (8.5-10.1); CARBON DIOXIDE LEVEL 26 MEQ/L (21-32); CHLORIDE LEVEL 100 MEQ/L (98-107); CREATININE FOR GFR 6.89 MG/DL (0.55-1.30); GLOMERULAR FILTRATION RATE 7.5 (>60); GLUCOSE, FASTING 96 MG/DL (70-100); POTASSIUM SERUM 4.2 MEQ/L (3.5-5.1); SODIUM LEVEL 136 MEQ/L (136-145)
--- NOTE | 2018-09-09 06:09 | HPEPDOC ---
[facility] Medical History & Physical Date of Admission Sep 09, 2018 History and Physical CHIEF COMPLAINT: dyspnea HISTORY OF PRESENTING ILLNESS: 32-year-old female with a history of end-stage renal disease, on hemodialysis Friday, , Friday, follows with [facility] Dr. Levi, hypertension, asthma, parathyroidectomy, right arteriovenous (AV) fistula, who presented to the ED for sob that started after HD yesterday. Patient said 3.5L of fluid was removed , but she felt very sob with some wheezes so she came to the ed. Her symptoms were improved with duoneb. She denied productive cough, chest pain, headache, blurry vision, fever, chills or vomiting. She also complained of nausea. Patient was also found to be very hypertensive without alarming symptoms. ROS - all 14 points ROS negative except for what's stated in HPI PAST MEDICAL HISTORY: 1. End-stage renal disease, on hemodialysis Friday, , Friday via right AV fistula. 2. Hypertension. 3. Asthma. 4. Parathyroidectomy times two. 5. Status post tonsillectomy. 6. Status post right AV fistula. 7. Active tobacco user. SOCIAL HISTORY: Lives alone. Admits to tobacco use. Denies alcohol use. FAMILY HISTORY: Reviewed and noncontributory. MEDICATIONS: see below ALLERGIES: CEFTRIAXONE, ERYTHROMYCIN, PENICILLIN, SULFA, TAPE, VANCOMYCIN. Physical Exam GEN: NAD , normal built, HEENT: normocephalic, atraumatic, PERRLA, EOMI, external ears appears normal, hearing intact, neck supple, no pharyngeal erythema CVS : normal S1, S2 no murmur, rubs or gallops , PMI nondisplaced RESP: LTACB, no rals, rhonchi, crackles, mild wheezes appreciated in the right upper lung field ABD - +BS, soft, NT, ND , no cva tenderness MSK no joint swelling, FROM, no muscle tenderness Neuro no focal deficit, AOAX3 Lymphatics- no lymphedema, no lymphadenopathy in cervical and supraclavicular chains Psych- normal mood and affect, good judgement and insight LABORATORY DATA: See below. IMAGING: MICROBIOLOGY: Please see below. Labs, ekg and images reviewed ASSESSMENT and Plan asthma exacerbation - mild ( much improved when I saw her , not on oxygen and no distress). - c/w duoneb treatment as needed - prednisone 40mg po bid HTN urgency -Patient has been given a number of BP meds with minimal improvement -she was given iv clonidine 0.3mg in ed with minimal improvements -hydralazine 50mg q8h was started - can increase as needed -c/w home meds - amlodipine , coreg and lisinopril - she may benefit from labetalol instead of coreg for her BP -was given 10mg iv hydralazine earlier this morning - waiting for repeat bp enlarged heart on CXR - f/u echo dvt ppx full code ,from home, no svc Vital Signs Vital Signs Date Time Temp Pulse Resp B/P (MAP) Pulse Ox O2 Delivery O2 Flow Rate FiO2 09/09/18 03:21 80 18 190/98 (128) 97 Room Air 09/09/18 01:29 97.0 Laboratory Data Labs 24H Laboratory Tests 2 09/08/18 17:15: Influenza Type A (RT-PCR) NEGATIVE, Influenza Type B (RT-PCR) NEGATIVE, Respiratory Syncytial Virus (RT-PCR NEGATIVE 09/08/18 18:13: Nucleated Red Blood Cells % (auto) 0.0, Anion Gap 9, Glomerular Filtration Rate 9.7L, Blood Urea Nitrogen 19H, Creatinine 5.49H, Sodium Level 137, Potassium Level 3.8, Chloride Level 99, Carbon Dioxide Level 29, Calcium Level 9.2, Total Creatine Kinase 39, Creatine Kinase MB < 1.0, Creatine Kinase MB Relative Index 2.56, Troponin I < 0.02, HY-Uwr-M-Type Natriuretic Peptide [id number] 09/09/18 00:35: Nucleated Red Blood Cells % (auto) 0.0, Immature Granulocyte % (Auto) 0.3, White Blood Count 7.6, Red Blood Count 3.64L, Hemoglobin 10.5#L, Hematocrit 31.4L, Mean Corpuscular Volume 86.3, Mean Corpuscular Hemoglobin 28.8, Mean Corpuscular Hemoglobin Concent 33.4, Red Cell Distribution Width 15.9H, Platelet Count 188, Neutrophils (%) (Auto) 66.7H, Lymphocytes (%) (Auto) 21.6L, Monocytes (%) (Auto) 6.3H, Eosinophils (%) (Auto) 4.3H, Basophils (%) (Auto) 0.8, Neutrophils # (Auto) 5.1, Lymphocytes # (Auto) 1.6, Monocytes # (Auto) 0.5, Eosinophils # (Auto) 0.3, Basophils # (Auto) 0.1, Magnesium Level 2.0 CBC/BMP Laboratory Tests 09/08/18 18:13 Red Blood Count 4.36, Mean Corpuscular Volume 85.6, Mean Corpuscular Hemoglobin 28.7, Mean Corpuscular Hemoglobin Concent 33.5, Red Cell Distribution Width 15.9 H, Calcium Level 9.2, Total Creatine Kinase 39 09/09/18 00:35 Red Blood Count 3.64 L, Mean Corpuscular Volume 86.3, Mean Corpuscular Hemoglobin 28.8, Mean Corpuscular Hemoglobin Concent 33.4, Red Cell Distribution Width 15.9 H, Neutrophils (%) (Auto) 66.7 H, Lymphocytes (%) (Auto) 21.6 L, Monocytes (%) (Auto) 6.3 H, Eosinophils (%) (Auto) 4.3 H, Basophils (%) (Auto) 0.8, Neutrophils # (Auto) 5.1, Lymphocytes # (Auto) 1.6, Monocytes # (Auto) 0.5, Eosinophils # (Auto) 0.3, Basophils # (Auto) 0.1 Home Medications Scheduled Amlodipine Besylate (Amlodipine Besylate) 10 Mg Tab, 10 MG PO DAILY Calcium Acetate (Calcium Acetate) 667 Mg Cap, 2,001 MG PO AC Carvedilol (Coreg) 25 Mg Tab, 50 MG PO BID Lanthanum Carbonate (Fosrenol) 1,000 Mg Chw, 1,000 MG PO PC Lisinopril (Lisinopril) 20 Mg Tab, 20 MG PO BID Patiromer Sorbitex Calcium (Veltassa) 8.4 Gm Pow, 8.4 GM PO 2XW TAKES FRIDAY AND FRIDAY AT DINNERTIME Scheduled PRN Acetaminophen (Tylenol) 325 Mg Tab, 650 MG PO QID PRN for PAIN Ondansetron (Ondansetron Odt) 4 Mg Tab, 4 MG PO Q6H PRN for NAUSEA OR VOMITING Allergies Coded Allergies: Ceftriaxone (Verified Allergy, Unknown, 04/29/17) Erythromycin (Verified Allergy, Unknown, 04/29/17) Penicillins (Verified Allergy, Unknown, 04/29/17) Sulfa Antibiotics (Verified Allergy, Unknown, 04/29/17) Vancomycin (Verified Allergy, Unknown, 04/29/17) Alcohol (Verified Adverse Reaction, Mild, ALCOHOL WIPES - CAUSES BLISTERS, 04/29/17) TAPE (Verified Adverse Reaction, Mild, PLASTIC TAPE-SKIN IRRITATION AND BLISTERS, 04/29/17) PATRICIA JAMES MD Sep 09, 2018 04:27
[2018-09-09 08:44] LABS: CK-MB VALUE MASS < 1.0 NG/ML (<3.6); CPK CREATINE PHOSPHOKINASE 27 U/L (26-192); TROPONIN I < 0.02 NG/ML (< 0.10)
[2018-09-09] MEDS ORDERED: amLODIPine 10 MG TAB PO SCH (09:00)
[2018-09-09] MEDS ORDERED: LISINOPRIL 20 MG TAB PO SCH (09:00)
[2018-09-09] MEDS: SENOKOT S TAB PO SCH ×2 (09:00→09:16)
[2018-09-09] MEDS ORDERED: CARVedilol 12.5 MG TAB PO SCH (09:00)
[2018-09-09] MEDS: predniSONE 20 MG TAB PO SCH (09:15)
[2018-09-09] MEDS: hydrALAZINE INJ 20 MG/ML VIAL IV SCH ×2 (09:16→12:55)
[2018-09-09] MEDS ORDERED: CALCIUM ACETATE 667 MG GELCAP PO SCH (12:00)
[2018-09-09] MEDS ORDERED: ISOS30TA4 PO (12:58)
[2018-09-09] MEDS ORDERED: LANTHANUM CARBONATE 500 MG CHEW TABLET PO SCH (13:00)
[2018-09-09] MEDS ORDERED: PATIROMER SORBITEX CALCIUM 8.4 GM POWDER PACKET (VELTASSA) PO SCH (18:00)
--- NOTE | 2018-09-09 21:09 | DSES ---
DATE OF ADMISSION: 09/09/2018 DATE OF DISCHARGE: 09/09/2018 PRIMARY CARE PROVIDER/DRAW END HAND: Dr. Johnathan Levi and Dr. Burkett FINAL DIAGNOSES: 1. Upper respiratory infection. 2. Asthma exacerbation. 3. Hypertensive urgency. 4. Poor compliance. 5. End stage renal disease. HISTORY OF PRESENT ILLNESS: This is a 32-year-old female patient with underlying medical history of end stage renal disease on dialysis Friday, and Friday, follows with Dr. Johnathan Levi, hypertension, asthma, parathyroidectomy, right AV fistula, who presented to the emergency department with shortness of breath after dialysis on Friday. The patient had 1.5 liters of fluid removed. Feeling shortness of breath and wheezy, which improved with nebulizer. Productive cough. Denies any headache, fevers or chills. Complained of nausea. In the emergency department, the patient was found to be very hypertensive without any other alarming symptoms. HOSPITAL COURSE: The patient was admitted to the hospital and given blood pressure medications, as well as nebulizer treatment and steroids with resolution of respiratory complaints. Her blood pressure is much better controlled. The patient was seen by project manager/team coach while inpatient, who recommended the patient be discharged. Subsequently, the patient currently feels comfortable, back to baseline and ready to be discharged for further care as an outpatient. The patient's blood pressure medication has been adjusted. VITAL SIGNS: Temperature 98.4, pulse 75, respirations 17, blood pressure 164/89, pulse oximetry 96% on room air. LABORATORY: WBC 7.9, hemoglobin and hematocrit 10.6/32, platelets 195. Chemistry: Sodium 136, potassium 4.2, chloride 100, bicarbonate 26, BUN 25, creatinine 6.89. Cardiac enzymes negative times two. C-reactive protein 0.6. Respiratory panel negative. GENERAL: The patient is alert, comfortable and in no acute distress. HEENT: Normocephalic, atraumatic. PULMONARY: Bilaterally clear. No significant wheeze detected. ABDOMEN: Soft, nontender. Positive bowel sounds. EXTREMITIES: No edema in bilateral lower extremities. DISCHARGE MEDICATIONS: - isosorbide mononitrate 30 mg by mouth daily - acetaminophen 650 mg by mouth four times a day as needed - Norvasc 10 mg by mouth daily - PhosLo 2001 mg by mouth before meals - Coreg 50 mg by mouth twice a day - Fosrenol 1000 mg by mouth daily - Lisinopril 20 mg by mouth twice a day - Zofran 4 mg by mouth every 6 hours as needed - Veltassa 8.6 mg by mouth two times a week DISCHARGE INSTRUCTIONS: Please see project manager/team coach and primary care provider for dialysis tomorrow. Further adjustments of blood pressure medication as per project manager/team coach. Return to the hospital if symptoms worsen.
--- NOTE | 2018-09-10 08:05 | CR ---
DATE OF CONSULTATION: 09/09/2018 REQUESTING PHYSICIAN: Dr. Jessica Al CONSULTING PHYSICIAN: Dr. Burkett REASON FOR CONSULTATION: Management of end stage renal disease, hemodialysis and possible fluid overload. CHIEF COMPLAINT: The patient presented to the hospital yesterday with shortness of breath. HISTORY OF PRESENT ILLNESS: Ruth Ann Raya is a 32-year-old female with past medical history of end stage renal disease on hemodialysis every Friday, and Friday, history of hypertension, and systemic lupus erythematosus (SLE) in the past, and multiple other comorbidities as mentioned below. She is chronically noncompliant with fluid restriction and her home medications. She was dialyzed as outpatient at the dialysis center and 3.5 liters of fluid was removed. Despite the fluid removal, she kept on having shortness of breath and wheezing. She denies any fevers, chills or productive cough. Because of her respiratory symptoms, she was sent to the emergency room for further evaluation. She was found to have elevated blood pressures. For her wheezing and shortness of breath, she was given DuoNeb nebulization in the emergency room. Because of accelerated hypertension, she was admitted under the hospitalist service overnight. Nephrology service was called for further help in the management of this patient with end stage renal disease and possible fluid overload. I saw and evaluated the patient today morning at the bedside. She reports that she is feeling better today as compared with yesterday. She was given nebulization. She was started on home dose of antihypertensive regimen and she was also started on hydralazine. I offered to do another session of ultrafiltration today, but the patient refused to have the procedure done. PAST MEDICAL HISTORY: 1. End stage renal disease on hemodialysis every Friday, , Friday. 2. Hypertension. 3. History of asthma. 4. History of hyperparathyroidism. PAST SURGICAL HISTORY: 1. Status post right upper arm AV fistula placement. 2. Status post parathyroidectomy times two. 3. History of tonsillectomy. ALLERGIES: - ALCOHOL - CEFTRIAXONE - ERYTHROMYCIN - PENICILLIN - SULFA DRUGS - TAPE - VANCOMYCIN FAMILY HISTORY: No significant family history of end stage renal disease requiring hemodialysis. SOCIAL HISTORY: The patient lives with her boyfriend. She smokes, but she denies any history of alcohol abuse. REVIEW OF SYSTEMS: Constitutional: She denies any fevers or chills. Eyes: She denies any double vision, blurry vision. ENT: She denies any dysphagia, odynophagia or ear discharge. Cardiovascular: She denies any chest pain or palpitations. Respiratory: She did report shortness of breath which is getting better. GI: She denies any nausea or vomiting. Genitourinary: She denies any dysuria or hematuria. Musculoskeletal: She denies any muscle aches and pains. Skin: She denies any rashes or ulcers. Endocrine: She reports history of hyperparathyroidism. Hematologic/Oncologic: She denies any easy bleeding or bruising. All other review of systems is negative. PHYSICAL EXAMINATION: General: Patient is awake, alert and oriented times three, laying in bed in no apparent distress. Vital Signs: Temperature 98.4 degrees Fahrenheit, blood pressure 164/89, pulse 75, respiratory rate 17, saturating 96% on room air. Head and Neck Exam: Extraocular muscles intact. Pupils equally round and reactive to light. Multiple dental caries. Mucous membranes are moist. Neck is supple. There is moderately elevated jugular venous distention (JVD). Cardiovascular: S1 and S2, regular rate. No edema of the bilateral lower extremities. Respiratory: Chest is clear to auscultation bilaterally. Bilateral equal air entry. Mildly decreased breath sounds at the bases. Abdomen is soft. Positive bowel sounds. Nontender. No organomegaly. Musculoskeletal: No clubbing or cyanosis. Pulses are 2+. AV Access: She has a right upper arm AV fistula with thrill and bruit. Central Nervous System (COLLEGE ADMISSIONS COUNSELOR): No focal deficit. Power is 5/5 in all extremities. LAB REVIEW: CBC showed a WBC of 7.9, hemoglobin 10.6, and platelets are 195. BMP showed sodium 136, potassium 4.2, chloride 100, bicarbonate 26, BUN 25, creatinine 6.8. Pro BNP was 57,329. MICROBIOLOGY: Respiratory viral panel is negative. IMAGING: CT of chest was done yesterday which showed heart upper limits of normal and significant renal atrophy. CURRENT INPATIENT MEDICATIONS: Patient's inpatient medications include - Tylenol as needed - DuoNeb nebulizations - amlodipine 10 mg daily - PhosLo 2001 mg by mouth with meals - Coreg 50 mg by mouth twice a day - clonidine 0.2 mg by mouth times one dose was given last night - Senokot twice a day - hydralazine 10 mg IV every 4 hours - lanthanum 1 gram with meal - lisinopril 20 mg by mouth twice a day - Zofran as needed - VELTASSA 8.4 grams by mouth Friday and Friday - prednisone 40 mg by mouth every 12 hours ASSESSMENT: 32-year-old female with past medical history of end stage renal disease on hemodialysis, history of hypertension and asthma admitted at this time with hypertensive urgency and acute asthma exacerbation. PLAN: 1. End stage renal disease on hemodialysis. Patient's regular dialysis days are Friday, and Friday. She was dialyzed yesterday. She still has some signs of fluid overload. I offered to do another session of ultrafiltration, but the patient refused to have dialysis done today. Next hemodialysis will be tomorrow. 2. Acute asthma exacerbation. Patient got steroids and nebulization. Her respiratory symptoms are better at this time. 3. Hypertensive urgency. The patient was admitted overnight with high blood pressures. Patient most likely is noncompliant with her antihypertensive medications. She will be restarted on home dose of amlodipine, Coreg and lisinopril. Blood pressures are better. The rest of the hypertensive management will be done as outpatient. 4. Anemia and end stage renal disease. Hemoglobin is 10.6, which is optimal. The rest of the anemia management will be done as outpatient. Thank you for involving me in the care of this patient. I shall be happy to follow the patient along with you.
== END 2018-09-09 14:36 | disposition home or self-care (01) | DRG 304 ==
LOC: M ED 16:03 → M ED INP 09-09 00:21 → M PCU 09-09 03:26
PROVIDERS: ADMIT Internal Medicine; ATTEND Hospitalist
DX: I16.0 Hypertensive urgency (principal); N18.6 End stage renal disease; J45.901 Unspecified asthma with (acute) exacerbation; Z91.19 Patient's noncompliance with other medical treatment and regimen; I12.0 Hypertensive chronic kidney disease with stage 5 chronic kidney disease or end stage renal disease; Z79.899 Other long term (current) drug therapy; F17.200 Nicotine dependence, unspecified, uncomplicated; Z88.0 Allergy status to penicillin; Z88.2 Allergy status to sulfonamides; Z88.8 Allergy status to other drugs, medicaments and biological substances; D63.1 Anemia in chronic kidney disease; J06.9 Acute upper respiratory infection, unspecified

== ENCOUNTER → 2019-02-05 | Outpatient (CLI) | payer MEDICARE, MEDICAID ==
[~2019-02-05] MED LIST changes: +CALC1CAP PO; +ISOS30TA4 PO; +VELT1POW PO
[2019-02-10 11:06] LABS: ALDOSTERONE 4.6 ng/dL (0.0-30.0); DOPAMINE PLASMA 65 pg/mL (0-48); EPINEPHRINE PLASMA <15 pg/mL (0-62); NOREPINEPHRINE PLASMA 1889 pg/mL (0-874)
== END ==
LOC: M LAB 12:49
PROVIDERS: ATTEND Internal Medicine Nephrology
DX: I15.0 Renovascular hypertension (principal)

== ENCOUNTER → 2019-02-08 | Outpatient (CLI) | payer MEDICARE, MEDICAID ==
[~2019-02-08] MED LIST changes: +ISOVUE-370 76% 100ML VIAL (Q9967) As Ordered ONE
--- NOTE | 2019-02-08 15:58 | REP ---
REASON FOR EXAM: Followup history of neoplasm. Latest prior for comparison is a noncontrast enhanced examination of 12/16/2017. Subsegmental atelectatic changes are seen in the lung bases. There are no pleural or pericardial effusions. No enhancing hepatic abnormalities have developed. There is mild periportal edema of uncertain etiology. There is a small amount of pericholecystic edema. The gallbladder wall is not abnormally thickened and there is no CT evidence of cholelithiasis. The maximal splenic dimension is 15 cm and is unchanged in appearance. The maximal hepatic dimension is 22.7 cm. This is unchanged as well. The bowel loops are noncontrast opacified limiting evaluation of them. Overall, they appear essentially unchanged from the prior exam. There is no change in appearance of the pancreas, adrenal glands, or kidneys. There is no change in the paraaortic regions. Multiple paraaortic lymph nodes are noted status quo. Bone window technique throughout the exam shows diffuse increased bony density blastic in appearance status quo. IMPRESSION: 1. Hepatosplenomegaly. 2. Chronic renal changes status quo. 3. Paraaortic adenopathy status quo and of uncertain etiology. 4. Small amount of ascites, but seen only as pericholecystic edema. Correlate clinically. 5. There is periportal edema of uncertain etiology. Correlate clinically. 6. Evidence of renal osteodystrophy. Correlate clinically. Electronically Signed by Seun Betancourt DO 02/08/2019 04:49 P
== END ==
LOC: M RAD 08:57
PROVIDERS: ATTEND Internal Medicine Nephrology
DX: R16.2 Hepatomegaly with splenomegaly, not elsewhere classified (principal); D44.10 Neoplasm of uncertain behavior of unspecified adrenal gland; I15.0 Renovascular hypertension
CPT/HCPCS: 74160; Q9967

== ENCOUNTER → 2019-02-19 | Outpatient (CLI) | payer MEDICARE, MEDICAID ==
--- NOTE | 2019-02-19 12:40 | REP ---
CT study of the abdomen and pelvis with adrenal protocol. Pre and post contrast study. CT technique: Precontrast and multiphase postcontrast imaging is included with thin sections through the adrenals. Portal venous and 15-minute delayed washout acquisitions are performed. Contrast enhancement dose is 1000 mL of intravenous Isovue 370. History: Adrenomedullary hyperfunction. Suspicious for pheochromocytoma. Comparison CT study February 08, 2019 and December 16, 2017. There is also a comparison CT study from May 22, 2016. CT findings: Hepatosplenomegaly is again noted. This is unchanged from the recent study of February 08, 2019. There is marked diffuse cortical atrophy in the kidneys. There are small cysts. There is a tiny cortical calcification in the left kidney and a somewhat larger lower pole calcification in the left kidney. This measures 4 mm. There is no visible adrenal mass or nodule. There are small normal-sized stable periaortic lymph nodes below the level of the adrenals. There is a small right and a tiny left pleural effusion. Cardiomegaly is again observed. There is reflux of contrast opacified blood from the right atrium into the intrahepatic segment of the vena cava and into the hepatic veins. There is some periportal edema in the liver which goes along with hepatic congestion. There is minimal ascites in the upper abdomen. The hemiazygos and azygos veins are somewhat dilated. There is no retrocrural lymphadenopathy. These findings are all unchanged. There is no evidence of retroperitoneal mass elsewhere. The aortic bifurcation is clear. The pelvic images included in the study show some residual contrast density material in the otherwise normal appendix and minimal ascites. No ovarian lesion is seen. The urinary bladder is empty at the time of scanning but no bladder mass is apparent. There is some diffuse subcutaneous edema. No bony destructive lesion is seen. Diffuse increased bone density suggestive of mild renal osteodystrophy. There is a Schmorl's node at the inferior endplate of what appears to be L3. Impression: Morphologically normal adrenal glands. Hepatosplenomegaly. Small bilateral pleural effusions and mild ascites. Advanced atrophy of the kidneys. No extra adrenal mass is apparent. Electronically Signed by Harish Lino MD 02/19/2019 04:01 P
== END ==
LOC: M RAD 07:45
PROVIDERS: ATTEND Nurse Practitioner Family
DX: E27.5 Adrenomedullary hyperfunction (principal); I15.8 Other secondary hypertension
CPT/HCPCS: 74178; Q9967

== ENCOUNTER → 2019-03-08 | Outpatient (CLI) | payer MEDICARE, MEDICAID ==
--- NOTE | 2019-03-08 09:08 | REPVR ---
EXAM: CT Head Without and With Contrast EXAM DATE/TIME: 03/08/2019 8:49 AM CLINICAL HISTORY: 33 years old, female; Other: Hypertensive emergency, norepinephrin; Additional info: Hypertensive urgency, elevated norepinephrine TECHNIQUE: Imaging protocol: Computed tomography of the head without and with intravenous contrast. Radiation optimization: All CT scans at this facility use at least one of these dose optimization techniques: automated exposure control; mA and/or kV adjustment per patient size (includes targeted exams where dose is matched to clinical indication); or iterative reconstruction. Contrast material: ISOVUE 370; Contrast volume: 75 ml; Contrast route: IV; COMPARISON: No relevant prior studies available. FINDINGS: Brain: Symmetric caliber of the cortical sulci. No acute cortical infarct, mass effect, pathologic enhancement, or intracranial hemorrhage. Ventricles: Normal configuration of the ventricles. Bones/joints: No acute calvarial pathology. Sinuses: No sinus fluid. Mastoid air cells: No mastoid effusion. Soft tissues: Unremarkable. IMPRESSION: No acute intracranial pathology. Electronically signed by: Krzysztof Suarez On 03/08/2019 09:08:51 AM
--- NOTE | 2019-03-08 09:52 | REP ---
CT of the chest with IV contrast: Comparison is 09/08/2018. There are no focal infiltrates. No pleural effusions. There is minor dependent atelectasis in the posterior lung phillips. There is curvilinear parenchymal scarring in the lower lobes bilaterally. Cardiac size is mildly enlarged, as previously. There is no pericardial effusion. The thoracic aorta is unremarkable. There are multiple anterior and mid mediastinal lymph nodes as an interval change. There is right hilar lymphadenopathy measuring up to 7 mm short axis as an interval change. There is a left hilar lymph node enlargement measuring up to 7 mm as an interval change. There is subcarinal lymph node enlargement measuring up to 17 ml short axis. This is unchanged. There are borderline enlarged lymph nodes in the axilla bilaterally measuring up to 7 mm on the right and the left measuring a short axis. There are no lytic, blastic or destructive skeletal changes. The bilateral marked renal cortical atrophy is again identified, similar to multiple prior studies. There is a 2 cm cyst anteriorly in the upper pole right kidney. This measured 1.7 cm on 12/16/2017. The visualized hepatic parenchyma is unremarkable. The pancreas is difficult to visualize. There is minimal patient of body fat tissue planes. Impression: Multiple mediastinal and hilar lymph node enlargement as described. Borderline axillary lymph node enlargement. Mild cardiomegaly, unchanged. Known chronic bilateral marked renal cortical atrophy. Stable right renal cyst as described. No acute infiltrates. No pleural effusions. Electronically Signed by Dewayne Alberto MD 03/08/2019 09:44 A
== END ==
LOC: M RAD 08:07
PROVIDERS: ATTEND Nurse Practitioner Family
DX: I16.0 Hypertensive urgency (principal); E27.5 Adrenomedullary hyperfunction
CPT/HCPCS: 70470; 71260; Q9967

== ENCOUNTER → 2019-03-10 | Outpatient (REF) | payer MEDICARE, MEDICAID ==
[~2019-03-10] MED LIST changes: -ISOVUE-370 76% 100ML VIAL (Q9967) As Ordered ONE
[2019-03-10 13:49] LABS: INR 1.2; PROTHROMBIN TIME 14.9 SECONDS (11.8-14.0)
[2019-03-10 13:50] LABS: PARTIAL THROMBOPLASTIN TIME 32.3 SECONDS (25.0-38.4)
[2019-03-10 13:59] LABS: ALBUMIN 3.3 GM/DL (3.2-5.2); BILIRUBIN,DIRECT 0.3 MG/DL (0.0-0.2); BILIRUBIN,TOTAL 0.9 MG/DL (0.2-1.0); TOTAL PROTEIN 7.2 GM/DL (6.4-8.2)
== END ==
LOC: M LAB REF 12:54
PROVIDERS: ATTEND Nurse Practitioner Family
DX: N18.6 End stage renal disease (principal); R17 Unspecified jaundice; M79.10 Myalgia, unspecified site

== ENCOUNTER → 2019-03-17 | Outpatient (CLI) | payer MEDICARE, MEDICAID ==
--- NOTE | 2019-03-17 19:58 | REP ---
CHEST, TWO VIEWS: Two views of the chest are performed. COMPARISON: 09/08/2018 There is moderate cardiomegaly. There appears to be mild diffuse interstitial infiltrate or edema. No pleural effusion is seen. Mediastinal silhouette is unremarkable and unchanged. The visualized osseous structures appear intact. IMPRESSION: Mild cardiomegaly. Diffuse mild interstitial infiltrate/edema. Electronically Signed by Dewayne Tucker MD 03/18/2019 09:04 A
== END ==
LOC: M WUC 18:40
PROVIDERS: ATTEND Physician Assistant
DX: R06.09 Other forms of dyspnea (principal)

== ENCOUNTER 2019-11-20 12:27 | Inpatient (IN) | payer MEDICARE, MEDICAID ==
[~2019-11-20] VITALS: Ht 162.6 cm; Wt 56.3 kg
[2019-11-20] MEDS ORDERED: TELM1TAB37 PO (13:09)
[2019-11-20] MEDS ORDERED: METO200T28 PO (13:09)
[2019-11-20] MEDS ORDERED: DOXA1TAB42 PO (13:09)
[2019-11-20] MEDS ORDERED: ISOS60TA2 PO (13:09)
[2019-11-20] MEDS ORDERED: CLON-412 PO (13:09)
[2019-11-20] MEDS ORDERED: COMBIVENT RESPIMAT 100-20MCG INHALER 4GM INH STA (13:56)
[2019-11-20 14:04] LABS: VENOUS BASE EXCESS 1.9 (-2.0-2.0); VENOUS HCO3 25.5 MEQ/L (23.0-27.0); VENOUS O2 SATURATION 89.9 % (60.0-80.0); VENOUS PARTIAL PRESSURE O2 57.2 mmHg (30.0-50.0); VENOUS PH 7.468 UNITS (7.330-7.430); VENOUS STANDARD HCO3 26.1 MEQ/L; VENOUS TOTAL CO2 26.6 MEQ/L (24.0-28.0)
[2019-11-20 14:07] LABS: BASO # 0.1 10^3/uL (0.0-0.2); BASO % 1.4 % (0.0-1.0); EOS # 0.2 10^3/uL (0.0-0.5); EOS % 3.3 % (0.0-3.0); HEMATOCRIT 30.9 % (36.0-47.0); LYMPH # 1.4 10^3/uL (1.5-5.0); LYMPH % 24.2 % (24.0-44.0); MEAN CORPUSCULAR HEMOGLOBIN 29.3 pg (27.0-33.0); MEAN CORPUSCULAR HGB CONC 32.4 g/dl (32.0-36.5); MEAN CORPUSCULAR VOLUME 90.6 fl (80.0-96.0); MONO # 0.4 10^3/uL (0.0-0.8); MONO % 7.4 % (0.0-5.0); NEUTROPHILS # 3.6 10^3/uL (1.5-8.5); NEUTROPHILS % 63.2 % (36.0-66.0); PLATELET COUNT, AUTOMATED 167 10^3/uL (150-450); RED BLOOD COUNT 3.41 10^6/uL (4.00-5.40); WHITE BLOOD COUNT 5.7 10^3/uL (4.0-10.0)
[2019-11-20 14:20] LABS: INR 1.15; PROTHROMBIN TIME 14.4 SECONDS (11.8-14.0)
[2019-11-20 14:21] LABS: PARTIAL THROMBOPLASTIN TIME 29.2 SECONDS (25.0-38.4)
[2019-11-20 14:48] LABS: ALBUMIN 3.6 GM/DL (3.2-5.2); ALT/SGPT 7 U/L (12-78); BILIRUBIN,DIRECT 0.6 MG/DL (0.0-0.2); BILIRUBIN,TOTAL 2.6 MG/DL (0.2-1.0); BLOOD UREA NITROGEN 19 MG/DL (7-18); CALCIUM LEVEL 9.3 MG/DL (8.5-10.1); CARBON DIOXIDE LEVEL 24 MEQ/L (21-32); CHLORIDE LEVEL 94 MEQ/L (98-107); CK-MB VALUE MASS < 1.0 NG/ML (<3.6); CPK CREATINE PHOSPHOKINASE 64 U/L (26-192); CREATININE FOR GFR 7.71 MG/DL (0.55-1.30); GLOMERULAR FILTRATION RATE 6.5 (>60); GLUCOSE, FASTING 85 MG/DL (70-100); MB/CK RELATIVE INDEX 1.56 (< OR =4); SODIUM LEVEL 128 MEQ/L (136-145); TOTAL PROTEIN 7.6 GM/DL (6.4-8.2); TROPONIN I 0.02 NG/ML (< 0.10)
[2019-11-20 14:52] LABS: NT-PRO BNP > 175000 PG/ML (<125); POTASSIUM SERUM 4.8 MEQ/L (3.5-5.1)
[2019-11-20] MEDS ORDERED: [UNRECOGNIZED DRUG - CODE] PO ×2 (15:39)
[2019-11-20] MEDS ORDERED: ACET-908 PO (15:39)
[2019-11-20] MEDS ORDERED: ACETAMINOPHEN TAB 650MG DOSE (2X325MG) PO PRN (15:45)
[2019-11-20] MEDS ORDERED: cloNIDine 0.2 MG TAB PO ONE (16:00)
[2019-11-20] MEDS ORDERED: IPRATROPIUM 0.5MG/ALBUTEROL 2.5MG INH SOL UD 3ML (DUONEB)(J7620) NEB PRN (16:45)
--- NOTE | 2019-11-20 16:56 | HPEPDOC ---
[facility] Medical History & Physical Date of Admission November 20, 2019 Date of Service: November 20, [address] GAY Attending Physician: DEEPAK ESTEVEZ MD History and Physical CHIEF COMPLAINT: SOB, due for HD today HISTORY OF PRESENT ILLNESS: 34-year-old W with a history of ESRD, on HD T,,Sat follows with Dr. Gay, HTN, allergy induced asthma, s/p parathyroidectomy, functional RUE arteriovenous fistula, who presented to the ED for SOB since 5d prior to admission without any fevers, chills, chest pain, palpitations, new cough, who is due for HD today and was referred by Dr. Gay for inpatient HD as her outpatient site is catering to a potential covid patient this afternoon. On presentation to the ED, she was hypertensive to the SBP 190s and was in mild distress with tachypnea and scattered expiratory wheezing that improved after albuterol/ipratropium mdi. She denied productive cough, chest pain, headache, blurry vision, fever, chills or vomiting. I spoke with Dr. Gay and he recommended admission to medicine with plan for HD this afternoon and the patient reported that she would like to be discharged home after HD. Initial work up was notable for clear CXR without infiltrates, effusions or significant pulmonary venous congestion, WBC 5.7, hgb 10, platelets of 167, na 128, K 4.8, Cr 7.71, VBG with pH 7.46/co2 36, proBNP >917919, lactate 1.5 ad TSH 4.9. I gave her 0.2mg of clonidine for the hypertension and she is going directly to HD and then going to PCU thereafter. ROS - all 12 points ROS negative except for what's stated in HPI PAST MEDICAL AND SURGICAL HISTORY: 1. End-stage renal disease, on hemodialysis Friday, , Friday via right AV fistula. 2. Hypertension. 3. Allergic asthma. 4. Parathyroidectomy. 5. Status post tonsillectomy. 6. Status post right AV fistula. 7. Active tobacco user. SOCIAL HISTORY: Lives alone, recently been living with her mother. Admits to tobacco use. Denies alcohol use. FAMILY HISTORY: Reviewed and noncontributory. OBJECTIVE: GEN: NAD HEENT: NCAT, PERRLA, EOMI, clear posterior oropharynx RESP:CTAB with trace scattered velcro-like dry crackles heard on the right, no rhonchi or wheezing at this time. ABD : Noromoactive bowel sounds, soft, NT, ND , no CVA tenderness MSK: No joint swelling, FROM, no muscle tenderness Neuro: CN 2-12 grossly intact, no focal deficit Ext: WWP, LE edema to midshins bilaterally, has palpable thrill in RLE, scars from prior HD access sites on LUE. Psych: AOx3, normal affect LABORATORY DATA: see below, reviewed above. IMAGING: CXR reviewed above MICROBIOLOGY: Blood cultures were drawn EKG: NSR ASSESSMENT: 34-year-old W with a history of ESRD, on HD T,,Sat follows with Dr. Gay, HTN, allergy induced asthma, s/p parathyroidectomy, functional RUE arteriovenous fistula, who presented to the ED for SOB since 5d prior to admission without any fevers, chills, chest pain, palpitations, new cough, who is due for HD today and was referred by Dr. Gay for inpatient HD. Dyspnea: C/w mild allergic asthma exacerbation - much improved by the time I saw her after getting after getting combivent - c/w duoneb neb q4hP HTN urgency: Has a history of noncompliance but was also reporting that she was told to not take if she has HD so she missed her meds today -gave 0.2mg clonidine in the ED -c/w home meds - amlodipine, clonidine, imdur, toprol XL, telmisartan, phenoxybenzamine -telemetry ESRD with volume overload -ESRD on TThSat, going to HD shortly this evening -check electrolytes daily -continue lanthanam phosbinder -continue Calcium acetate -renal diet dvt ppx: heparin BID SQ full code dispo: PCU Vital Signs Vital Signs Date Time Temp Pulse Resp B/P (MAP) Pulse Ox O2 Delivery O2 Flow Rate FiO2 11/20/19 15:45 71 20 193/117 (142) 98 Room Air 11/20/19 12:28 98.0 Laboratory Data Labs 24H Laboratory Tests 2 11/20/19 13:51: Immature Granulocyte % (Auto) 0.5, Neutrophils (%) (Auto) 63.2, Lymphocytes (%) (Auto) 24.2, Monocytes (%) (Auto) 7.4H, Eosinophils (%) (Auto) 3.3H, Basophils (%) (Auto) 1.4H, Neutrophils # (Auto) 3.6, Lymphocytes # (Auto) 1.4L, Monocytes # (Auto) 0.4, Eosinophils # (Auto) 0.2, Basophils # (Auto) 0.1, Nucleated Red Blood Cells % (auto) 0.0, Prothrombin Time 14.4H, Prothromb Time International Ratio 1.15, Activated Partial Thromboplast Time 29.2, Blood Gas Bicarbonate S tandard 26.1, Venous Blood pH 7.468H, Venous Blood Partial Pressure CO2 36.0L, Venous Blood Partial Pressure O2 57.2H, Venous Blood Total Carbon Dioxide 26.6, Venous Blood HCO3 25.5, Venous Blood Oxygen Saturation 89.9H, Venous Blood Base Excess 1.9, Anion Gap 10, Glomerular Filtration Rate 6.5L, Lactic Acid Level 1.5, Calcium Level 9.3, Total Bilirubin 2.6H, Direct Bilirubin 0.6H, Aspartate Amino Transf (AST/SGOT) 20, Alanine Aminotransferase (ALT/SGPT) 7L, Alkaline Phosphatase 47, Total Creatine Kinase 64, Creatine Kinase MB < 1.0, Creatine Kinase MB Relative Index 1.56, Troponin I 0.02, AS-Qil-R-Type Natriuretic Peptide > 862585D, Total Protein 7.6, Albumin 3.6, Albumin/Globulin Ratio 0.9L, Thyroid Stimulating Hormone (TSH) 4.590H CBC/BMP Laboratory Tests 11/20/19 13:51 Microbiology Microbiology 11/20/19 Blood Culture, Received Pending 11/20/19 Blood Culture, Received Pending Home Medications Scheduled Amlodipine Besylate (Amlodipine Besylate) 10 Mg Tab, 10 MG PO DAILY Calcium Acetate (Calcium Acetate) 667 Mg Cap, 2,001 MG PO TID before meals Clonidine HCl (Clonidine HCl) 0.1 Mg Tablet, 0.1 MG PO TID Doxazosin Mesylate (Doxazosin Mesylate) 1 Mg Tablet, 1 MG PO QHS Isosorbide Mononitrate (Isosorbide Mononitrate ER) 60 Mg Tab.er.24h, 60 MG PO BID Lanthanum Carbonate (Fosrenol) 1,000 Mg Chw, 1,000 MG PO TID with meals Metoprolol Succinate (Metoprolol Succinate) 200 Mg Tab.er.24h, 200 MG PO DAILY Patiromer Calcium Sorbitex (Veltassa) 8.4 Gm Pow, 8.4 GM PO 3XW takes days of dialysis tue, thur, sat Phenoxybenzamine HCl (Dibenzyline) 10 Mg Capsule, 20 MG PO QAM Phenoxybenzamine HCl (Dibenzyline) 10 Mg Capsule, 10 MG PO QPM Telmisartan (Telmisartan) 80 Mg Tablet, 80 MG PO DAILY Scheduled PRN Acetaminophen (Acetaminophen) 325 Mg Tablet, 650 MG PO QID PRN for PAIN Allergies Coded Allergies: Sulfa (Sulfonamide Antibiotics) (Verified Allergy, Unknown, 11/20/19) rash alcohol (Verified Allergy, Unknown, 11/20/19) wipes-blisters ceftriaxone (Verified Allergy, Unknown, 11/20/19) erythromycin base (Verified Allergy, Unknown, 11/20/19) vancomycin (Verified Allergy, Unknown, 11/20/19) whole body red TAPE (Verified Adverse Reaction, Mild, PLASTIC TAPE-SKIN IRRITATION AND BLISTERS, 04/29/17) Penicillins (Verified Adverse Reaction, Unknown, 11/20/19) vomit A-FIB/CHADSVASC A-FIB History Current/History of A-Fib/PAF?: No Current PO Anticoag Therapy: No Age/Risk Factor Scoring CHADSVASC: CHADSVASC Response (Comments) Value Age Risk Factor Age < 65 years old 0 Gender Risk Factor Female 1 Hx of CHF No 0 Hx of HTN No 0 Hx of Stroke/TIA/or VTE No 0 Hx of Diabetes No 0 Hx of Vascular Disease No 0 Total 1 Treatment Treatment ordered: NONE Reason Anticoagulant not given: Not indicated/[id number] DEEPAK ESTEVEZ MD November 20, 2019 16:56
[2019-11-20] MEDS: CALCIUM ACETATE 667MG GELCAP PO SCH (18:00)
[2019-11-20] MEDS: LANTHANUM CARBONATE 500 MG CHEW TABLET PO SCH (18:00)
[2019-11-20 21:00] VITALS: BP 204/112
[2019-11-20] MEDS ORDERED: TELMISARTAN 20 MG TAB PO ONE (21:00)
[2019-11-20] MEDS: cloNIDine 0.1 MG TAB PO SCH (22:04)
[2019-11-20] MEDS: DOXAZOSIN MESYLATE 1 MG TAB PO SCH (22:04)
[2019-11-20] MEDS: ISOSORBIDE MON. (IMDUR) 60 MG XR TAB PO SCH (22:05)
[2019-11-20] MEDS: HEPARIN SOD (PORCINE) 5000UNITS/ML VIAL (J1644 PER 1000UNITS) SC SCH (22:05)
[2019-11-21] VITALS (9 sets, daily range): BP systolic 172–204; BP diastolic 72–110
[2019-11-21] MEDS ORDERED: hydrALAZINE 20MG/ML 1ML VIAL (J0360 PER 20MG) IV ONE (03:45)
[2019-11-21 06:14] LABS: HEMATOCRIT 28.9 % (36.0-47.0); HEMOGLOBIN 9.5 g/dl (12.0-15.5); MEAN CORPUSCULAR HEMOGLOBIN 29.9 pg (27.0-33.0); MEAN CORPUSCULAR HGB CONC 32.9 g/dl (32.0-36.5); MEAN CORPUSCULAR VOLUME 90.9 fl (80.0-96.0); PLATELET COUNT, AUTOMATED 171 10^3/uL (150-450); RED BLOOD COUNT 3.18 10^6/uL (4.00-5.40); WHITE BLOOD COUNT 4.7 10^3/uL (4.0-10.0)
[2019-11-21 06:54] LABS: CALCIUM LEVEL 8.8 MG/DL (8.5-10.1); CREATININE FOR GFR 4.91 MG/DL (0.55-1.30); GLOMERULAR FILTRATION RATE 10.9 (>60); MAGNESIUM LEVEL 2.1 MG/DL (1.8-2.4)
[2019-11-21 07:59] LABS: ALBUMIN 3.2 GM/DL (3.2-5.2); BILIRUBIN,DIRECT 0.6 MG/DL (0.0-0.2); BILIRUBIN,TOTAL 2.4 MG/DL (0.2-1.0); TOTAL PROTEIN 6.9 GM/DL (6.4-8.2)
--- NOTE | 2019-11-21 08:00 | REP ---
CHEST, PORTABLE: AP portable view of the chest is performed and compared to prior study of 03/17/2019. There is mild cardiomegaly, unchanged. Mild diffuse interstitial prominence appears similar to the prior study. No acute focal infiltrate is seen. Mediastinal silhouette is unchanged. IMPRESSION: Stable mild cardiomegaly and diffuse interstitial prominence. No acute focal infiltrate bilaterally. Electronically Signed by Dewayne Tucker MD 11/21/2019 09:59 A
[2019-11-21] MEDS: LANTHANUM CARBONATE 500 MG CHEW TABLET PO SCH ×3 (08:23→17:30)
[2019-11-21] MEDS: TELMISARTAN 20 MG TAB PO SCH (08:23)
[2019-11-21] MEDS: METOPROLOL SUCC (TopROL XL) 100MG *XL* TAB PO SCH (08:23)
[2019-11-21] MEDS: CALCIUM ACETATE 667MG GELCAP PO SCH ×3 (08:23→17:30)
[2019-11-21] MEDS: cloNIDine 0.1 MG TAB PO SCH ×3 (08:24→20:52)
[2019-11-21] MEDS: ISOSORBIDE MON. (IMDUR) 60 MG XR TAB PO SCH ×2 (08:24→20:53)
[2019-11-21] MEDS: HEPARIN SOD (PORCINE) 5000UNITS/ML VIAL (J1644 PER 1000UNITS) SC SCH ×2 (08:24→20:53)
[2019-11-21] MEDS: amLODIPine 10 MG TAB PO SCH (08:24)
[2019-11-21 10:11] LABS: FREE T4 1.86 NG/DL (0.76-1.46)
--- NOTE | 2019-11-21 12:56 | IPNPDOC ---
Text Note Date of Service The patient was seen on 11/21/19. NOTE SUBJECTIVE: -No issues overnight -remains in asymptomatic hypertensive urgency OBJECTIVE: GEN: NAD HEENT: NCAT, PERRLA, EOMI, clear posterior oropharynx RESP:bibasilar course scattered crackles, no rhonchi or wheezing at this time. CARDIAC: RRR, no mrg, +JVD ABD : Normoactive bowel sounds, soft, NT, ND , no CVA tenderness MSK: No joint swelling, FROM, no muscle tenderness Neuro: CN 2-12 grossly intact, no focal deficit Ext: WWP, LE with trace much improved , has palpable thrill in RLE, scars from prior HD access sites on LUE. Psych: AOx3, normal affect LABORATORY DATA: reviewed. WBC 4.7, Hgb 9.5, platelets 171, Na 137, K 4, cr 4.91, mag 2.1, T bili 2.4 IMAGING: reviewed. No new interval imaging MICROBIOLOGY: Blood cultures NGTD ASSESSMENT: 34-year-old W with a history of ESRD, on HD T,,Sat follows with Dr. Levi, HTN, allergy induced asthma, s/p parathyroidectomy, functional RUE arteriovenous fistula, who presented to the ED for SOB since 5d prior to admission without any fevers, chills, chest pain, palpitations, new cough, who was due for HD today and was referred by Dr. Levi for inpatient HD. Dyspnea: C/w mild allergic asthma exacerbation - much improved after combivent - c/w duoneb neb q4hP -Tessalon perles TID HTN urgency: Has a history of noncompliance but was also reporting that she was told to not take if she has HD etc -c/w home meds - amlodipine, clonidine, imdur, toprol XL, telmisartan, phenoxybenzamine. may need hydralazine as well, will check after she receives AM meds. -telemetry ESRD with volume overload -ESRD on TThSat, had HD yesterday evening -check electrolytes daily -continue lanthanam phosbinder -continue Calcium acetate -renal diet -Dr. Levi consulted Hyperbilirubinemia: -follow up liver US dvt ppx: heparin BID SQ full code dispo: likely DC home tomorrow after HD VS,Fishbone, I+O VS, Fishbone, I+O Laboratory Tests 11/20/19 13:51 11/21/19 05:59 Vital Signs Date Time Temp Pulse Resp B/P (MAP) Pulse Ox O2 Delivery O2 Flow Rate FiO2 11/21/19 08:23 69 200/100 11/21/19 07:38 98.4 17 99 Room Air I&O- Last 24 Hours up to 6 AM 11/21/19 06:00 Intake Total 240 ml Output Total 3000 ml Balance -2760 ml DEEPAK ESTEVEZ MD November 21, 2019 08:42
[2019-11-21] MEDS: BENZONATATE 100 MG CAP PO SCH ×2 (15:39→20:52)
--- NOTE | 2019-11-21 19:44 | ECGEPIP ---
[facility] - ED Test Date: 2019-11-20 Pat Name: YESSICA BOND Department: Room: - Gender: Female Outgoing Inspector: jfjb : [id number] Requested By: FRANCISCO TANG Order Number: [id number] Reading MD: Jazmin Pickett Measurements Intervals [place] Rate: 73 P: 9 IN: 181 QRS: 63 QRSD: 87 T: 92 QT: 423 QTc: 467 Interpretive Statements SINUS RHYTHM MINIMAL ST DEPRESSION PROLONGED QTC PROMINENT T WAVES Electronically Signed on 11-21-2019 19:44:35 EDT by Jazmin Pickett
[2019-11-21] MEDS: DOXAZOSIN MESYLATE 1 MG TAB PO SCH (20:53)
[2019-11-22] VITALS: BP 202/88
[2019-11-22] MEDS: **hydrALAZINE** 10 MG TAB PO PRN (01:53)
[2019-11-22 04:00] VITALS: BP 194/94
[2019-11-22 04:29] LABS: HEMATOCRIT 26.7 % (36.0-47.0); HEMOGLOBIN 8.5 g/dl (12.0-15.5); MEAN CORPUSCULAR HEMOGLOBIN 29.7 pg (27.0-33.0); MEAN CORPUSCULAR HGB CONC 31.8 g/dl (32.0-36.5); MEAN CORPUSCULAR VOLUME 93.4 fl (80.0-96.0); PLATELET COUNT, AUTOMATED 154 10^3/uL (150-450); RED BLOOD COUNT 2.86 10^6/uL (4.00-5.40); WHITE BLOOD COUNT 4.4 10^3/uL (4.0-10.0)
[2019-11-22 05:08] LABS: CALCIUM LEVEL 8.9 MG/DL (8.5-10.1); CREATININE FOR GFR 7.2 MG/DL (0.55-1.30); POTASSIUM SERUM 4.3 MEQ/L (3.5-5.1)
[2019-11-22] MEDS ORDERED: **hydrALAZINE** 10 MG TAB PO ONE (05:15)
[2019-11-22 08:00] VITALS: BP 198/76
[2019-11-22] MEDS ORDERED: SLF 3 ML SYR IV PRN (08:45)
[2019-11-22] MEDS: amLODIPine 10 MG TAB PO SCH (08:50)
[2019-11-22] MEDS: ISOSORBIDE MON. (IMDUR) 60 MG XR TAB PO SCH ×2 (08:51→21:13)
[2019-11-22] MEDS: LANTHANUM CARBONATE 500 MG CHEW TABLET PO SCH ×3 (08:51→18:09)
[2019-11-22] MEDS: METOPROLOL SUCC (TopROL XL) 100MG *XL* TAB PO SCH (08:51)
[2019-11-22] MEDS: CALCIUM ACETATE 667MG GELCAP PO SCH ×3 (08:52→18:08)
[2019-11-22] MEDS: TELMISARTAN 20 MG TAB PO SCH (08:52)
[2019-11-22] MEDS: BENZONATATE 100 MG CAP PO SCH ×3 (08:52→21:12)
[2019-11-22] MEDS: HEPARIN SOD (PORCINE) 5000UNITS/ML VIAL (J1644 PER 1000UNITS) SC SCH ×2 (08:52→21:11)
[2019-11-22] MEDS: cloNIDine 0.1 MG TAB PO SCH ×3 (09:00→21:13)
--- NOTE | 2019-11-22 09:39 | CR ---
DATE OF CONSULTATION: 11/20/2019 NEPHROLOGY CONSULTATION FOR: Lucy Sanches REASON FOR CONSULTATION: Shortness of breath and uncontrolled hypertension in this young lady with end-stage renal disease. HISTORY OF PRESENT ILLNESS: Ms. Raya is a 34-year-old female with known history of longstanding hypertension which has been generally suboptimal control. She has end-stage renal disease and has been on maintenance hemodialysis three times a week for several years. She reports to be compliant with dialysis treatments. She presented to the emergency room with shortness of breath this afternoon and was also noticed to have blood pressure above 200/120 mmHg. She had missed her dialysis treatment today and nephrology consultation was requested to arrange for dialysis and for her shortness of breath. PAST MEDICAL AND SURGICAL HISTORY (Significant for): 1. Longstanding hypertension, poorly controlled due to noncompliance with meds. 2. End-stage renal disease. 3. History of severe secondary hyperparathyroidism, status post partial parathyroidectomy. 4. History of anemia of chronic kidney disease. 5. History of chronic hypervolemia. 6. History of tonsillectomy. 7. History of AV fistula creation in right arm. 8. History of chronic tobacco use. PERSONAL AND SOCIAL HISTORY: The patient lives alone and admits to tobacco use. She denies any alcohol or recreational drug use. FAMILY HISTORY: Significant for hypertension. MEDICATIONS: Her home medications include - amlodipine 10 mg daily - clonidine 0.1 mg three times a day - doxazosin seen 1 mg at bedtime - isosorbide 60 mg twice a day - metoprolol succinate 200 mg daily - phenoxybenzamine 20 mg in the a.m. and 10 mg in p.m. - Micardis 80 mg daily - fosinopril 1000 mg three times a day - VELTASSA 8.4 grams three times a week - calcium acetate 3 capsules three times a day with meals - Tylenol as needed for pain ALLERGIES: - SULFA REVIEW OF SYSTEMS: The patient reports shortness of breath for the last few days. She denies missing any dialysis treatments. She denies any fever or chills. Ears, nose and throat are unremarkable. Cardiovascular system is significant for shortness of breath and uncontrolled hypertension. Denies any chest pain. Respiratory system is negative for hemoptysis or pleuritic type of chest pain. GI system is negative for nausea, vomiting or diarrhea. system is negative for dysuria or hematuria. Endocrine system is significant for secondary hyperparathyroidism. She has no history of diabetes or thyroid problems. Hematological system is significant for anemia of chronic kidney disease. She is not on any anticoagulation. Neurological system is significant for headaches, but no seizures or stroke. Psychosocial system significant for noncompliance with medications and dietary restrictions. No known history of depression or anxiety. Skin is negative for rash or ulcers. Musculoskeletal system is significant for some mild chronic leg edema. She denies any arthralgias. PHYSICAL EXAMINATION: Temperature 97.3 degrees Fahrenheit, heart rate 68 per minute and respiratory rate 20 per minute. Blood pressure is 194/121 mmHg and oxygen saturation 98% on room air. Head is atraumatic. Neck is supple and jugular venous distention (JVD) is not abnormally elevated. Pupils equal and reactive to light. Sclera is anicteric. She has no oral thrush or ulcers. Heart sounds are regular and without a pericardial friction rub. Lungs with a few basilar rales. Abdomen: Soft and nontender. Bowel sounds normal. Extremities: Without any cyanosis or clubbing. Right arm AV fistula is patent and has good bruit and thrill. Neurologically, she is awake, alert and at her baseline mentation. LABORATORY DATA: WBC count 5.7, hemoglobin 10.0, hematocrit 30.9. Platelets 167. A venous blood gas showed a pH of 7.46, pCO2 of 36, pO2 of 57.2 and bicarb 26. Sodium 128, potassium 4.8, CO2 24, BUN 19 and creatinine 7.71. Lactic acid 1.5, calcium 9.3, total bilirubin 2.6, AST 20, ALT 7, troponin 0.02, pro BNP level of 175,000, and albumin level 3.6. TSH 4.5. Chest x-ray done in the emergency room is reviewed independently. She has cardiomegaly and vascular congestion bilaterally. There is no acute infiltrate or effusion. PROBLEMS: 1. Shortness of breath, most likely due to a combination of uncontrolled hypertension and volume overload. The patient will be dialyzed urgently and will try to remove at least 3 liters of fluid. She has history of noncompliance with her medications in the past, but admits to take her medications this morning. We will adjust her medications after dialysis if her blood pressure does not get better. She will get her evening dose of her medications too after dialysis today. I anticipate improvement in her shortness of breath with dialysis and fluid removal. 2. Uncontrolled hypertension. This is a chronic issue and she has been investigated for possible pheochromocytoma. The results have been inconclusive and medical management has not made a huge difference. At this point, we will continue with antihypertensive meds and try to correct her volume status. 3. End-stage renal disease. The patient usually gets dialyzed on Friday, and Friday schedule. She has not missed dialysis and will be dialyzed this afternoon. 4. Anemia. Her anemia is chronic and stable. No urgent intervention is indicated. 5. Hyponatremia. This is related to end-stage renal disease and volume overload. This was definitely improved if not corrected with dialysis and fluid removal today. Electrolytes should be checked again tomorrow morning. 6. Elevated bilirubin level. She has no known history of liver problems before. This could be passive hepatic congestion related to volume overload. At this point, we will monitor without any intervention. She has no symptoms of any gallbladder problems. Thank you for involving me in the care of Ms. Raya. I will follow her along with you.
--- NOTE | 2019-11-22 10:27 | REP ---
RIGHT UPPER QUADRANT ULTRASOUND: Real-time sonographic evaluation of the right upper quadrant performed. Gallbladder wall is thickened and edematous with a maximum diameter of 9 mm. No definite gallstones are seen. There is no intrahepatic or extrahepatic biliary dilatation, common bile duct measuring 4 mm. Liver demonstrates no mass. Visualized pancreas is grossly unremarkable, not well seen due to overlying bowel gas. Right kidney is atrophic measuring 6.1 x 3.8 x 3.3 cm. Right renal cyst measures 2.8 x 1.9 x 1.9 cm. No free fluid is seen. IMPRESSION: Thickened edematous gallbladder wall 9 mm in diameter. No gallstones or biliary dilatation. Right renal atrophy. Electronically Signed by Dewayne Tucker MD 11/22/2019 01:15 P
--- NOTE | 2019-11-22 10:34 | IPN ---
DATE OF VISIT: 11/21/2019 Ms. Raya is seen this morning on her bedside. She underwent hemodialysis last evening and 3 liters of fluid was removed. Her blood pressure has been quite high through the night despite her medications. This morning she still complains of heaviness in her chest but denies any headache. She has no nausea or vomiting and did eat her breakfast. On physical exam, temperature 98.4 degrees Fahrenheit, heart rate 70 per minute and respiratory rate 18 per minute. Blood pressure 200/100 mmHg earlier, and now it is down to 174/94 mmHg and oxygen saturation 99%. Head is atraumatic. Neck supple and jugular venous distention (JVD) not abnormally elevated. Heart sounds are regular and lungs sound clear to auscultation. Abdomen soft and nontender. Bowel sounds are normal. Extremities without any cyanosis or clubbing. Neurologically, she is awake, alert and oriented times three. Today's labs show WBC count 4.7, hemoglobin 9.5 and hematocrit 28.9. Platelets 171. Sodium 137, potassium 4.0, CO2 29, BUN 8 and creatinine 4.9. Glucose 84 and calcium 8.8. Her bilirubin is still elevated at 2.4, while AST is 12 and ALT 11. Alkaline phosphatase is 45. PROBLEMS: 1. Shortness of breath most likely related to uncontrolled hypertension and volume overload. We took off 3 liters of fluid yesterday and she will probably need further fluid removal with ultrafiltration tomorrow. Patient understands that she needs to stay in the hospital until her condition improves. 2. Hypertension. Blood pressures remained elevated through the night. This morning she received all her morning medications and blood pressure seems to be coming down. I will make further adjustments if needed. I feel that with further fluid removal her blood pressure control will also improve. 3. Elevated bilirubin. She is asymptomatic and we will get an ultrasound of her gallbladder tomorrow morning. No other urgent intervention is indicated. 4. Anemia. No urgent intervention is indicated and anemia is only stable at baseline.
[2019-11-22 12:00] VITALS: BP 194/86
[2019-11-22] MEDS: SLF 3 ML SYR IV SCH ×2 (13:01→21:14)
--- NOTE | 2019-11-22 14:52 | IPNPDOC ---
Text Note Date of Service The patient was seen on 11/22/19. NOTE SUBJECTIVE: -No issues overnight -remains in asymptomatic hypertensive urgency -continues to have a dry cough OBJECTIVE: GEN: NAD HEENT: NCAT, PERRLA, EOMI, clear posterior oropharynx RESP:bibasilar course scattered crackles otherwise clear, no rhonchi or wheezing at this time. CARDIAC: RRR, no mrg, +JVD ABD : Normoactive bowel sounds, soft, NT, ND , no CVA tenderness MSK: No joint swelling, FROM, no muscle tenderness Neuro: CN 2-12 grossly intact, no focal deficit Ext: WWP, LE with trace much improved , has palpable thrill in RLE, scars from prior HD access sites on LUE. Psych: AOx3, normal affect LABORATORY DATA: reviewed. WBC 4.4, Hgb 8.5, platelets 154, Na 135, K 4, cr 7 IMAGING: reviewed. gallbladder US: Thickened edematous gallbladder wall 9 mm in diameter. No gallstones or biliary dilatation. Right renal atrophy MICROBIOLOGY: Blood cultures NGTD ASSESSMENT: 34-year-old W with a history of ESRD, on HD T,,Sat follows with Dr. Levi, HTN, allergy induced asthma, s/p parathyroidectomy, functional RUE arteriovenous fistula, who presented to the ED for SOB since 5d prior to admission without any fevers, chills, chest pain, palpitations, new cough, who was due for HD today and was referred by Dr. Levi for inpatient HD. Dyspnea: C/w mild allergic asthma exacerbation - much improved after combivent - switch duoneb neb q4hP to q4h scheduled because she is not getting them -Tessalon perles TID HTN urgency: Has a history of noncompliance but was also reporting that she was told to not take if she has HD etc -c/w home meds - amlodipine, clonidine, toprol XL, telmisartan, phenoxybenzamine. Increased imdur to 120u. PRN hydralazine for hypertension -telemetry ESRD with volume overload -ESRD on TThSat, had HD yesterday evening -check electrolytes daily -continue lanthanam phosbinder -continue Calcium acetate -renal diet -Dr. Levi consulted, having HD today Hyperbilirubinemia: -liver US with thickened edematous gallbladder wall, without gallstones or biliary dilatation. -check hemolysis labs dvt ppx: heparin BID SQ full code dispo: likely DC home tomorrow after HD VS,Fishbone, I+O VS, Fishbone, I+O Laboratory Tests 11/22/19 04:18 Vital Signs Date Time Temp Pulse Resp B/P (MAP) Pulse Ox O2 Delivery O2 Flow Rate FiO2 11/22/19 12:00 97.8 67 18 194/86 (122) 100 Nasal Cannula 2.0 I&O- Last 24 Hours up to 6 AM 11/22/19 06:00 Intake Total 540 ml Balance 540 ml DEEPAK ESETVEZ MD Nov 22, 2019 14:52
[2019-11-22] MEDS: IPRATROPIUM 0.5MG/ALBUTEROL 2.5MG INH SOL UD 3ML (DUONEB)(J7620) NEB SCH ×3 (17:00→23:15)
[2019-11-22 18:05] VITALS: BP 202/110
[2019-11-22 20:00] VITALS: BP 162/84
[2019-11-22] MEDS ORDERED: diphenhydrAMINE 25MG CAP PO ONE (21:00)
[2019-11-22] MEDS: DOXAZOSIN MESYLATE 1 MG TAB PO SCH (21:13)
[2019-11-23] VITALS (7 sets, daily range): BP systolic 171–230; BP diastolic 62–100
[2019-11-23 03:57] LABS: HEMATOCRIT 25.1 % (36.0-47.0); MEAN CORPUSCULAR HEMOGLOBIN 29.9 pg (27.0-33.0); MEAN CORPUSCULAR HGB CONC 31.9 g/dl (32.0-36.5); MEAN CORPUSCULAR VOLUME 93.7 fl (80.0-96.0); PLATELET COUNT, AUTOMATED 142 10^3/uL (150-450); RED BLOOD COUNT 2.68 10^6/uL (4.00-5.40); WHITE BLOOD COUNT 4.7 10^3/uL (4.0-10.0)
[2019-11-23] MEDS: **hydrALAZINE** 10 MG TAB PO PRN (04:14)
[2019-11-23] MEDS: IPRATROPIUM 0.5MG/ALBUTEROL 2.5MG INH SOL UD 3ML (DUONEB)(J7620) NEB SCH ×4 (04:18→17:06)
[2019-11-23 04:34] LABS: ALBUMIN 3.1 GM/DL (3.2-5.2); BILIRUBIN,DIRECT 0.4 MG/DL (0.0-0.2); BILIRUBIN,TOTAL 1.3 MG/DL (0.2-1.0); CALCIUM LEVEL 9.5 MG/DL (8.5-10.1); CREATININE FOR GFR 9.28 MG/DL (0.55-1.30); GLOMERULAR FILTRATION RATE 5.2 (>60); POTASSIUM SERUM 4.4 MEQ/L (3.5-5.1); TOTAL PROTEIN 6.7 GM/DL (6.4-8.2)
[2019-11-23] MEDS: SLF 3 ML SYR IV SCH (05:24)
[2019-11-23] MEDS: CALCIUM ACETATE 667MG GELCAP PO SCH ×2 (07:06→12:36)
[2019-11-23] MEDS: LANTHANUM CARBONATE 500 MG CHEW TABLET PO SCH ×2 (07:06→12:37)
[2019-11-23] MEDS ORDERED: PATIROMER SORBITEX CALCIUM 8.4 GM POWDER PACKET (VELTASSA) PO SCH (08:00)
[2019-11-23] MEDS: **hydrALAZINE** 50 MG TAB PO SCH ×2 (09:00→15:15)
--- NOTE | 2019-11-23 11:18 | IPN ---
DATE OF SERVICE: 11/22/2019 Ms. Raya was seen and examined this morning during bedside rounds. She states that she felt slightly wheezy this morning and had some fluid overload but not as significant. She has noted the heaviness in her chest has improved, but it is still persistent. She thinks it is because her chest feels very tight. She has no other complaints today. She will be going down to dialysis for ultrafiltration today. No overnight events were reported by nursing. She denies any nausea, vomiting, diarrhea. No fever or chills. It was reported by nursing that her blood pressures were elevated overnight with the highest systolic to 190-202, and she was given hydralazine 10 mg by mouth. She denies any headaches or any symptomatic event during those high blood pressures. PHYSICAL EXAMINATION: Vitals: Temperature 99.0, pulse 69, respirations 20, blood pressure 198/76 (84155), pulse oximetry 100% on 2 liters with nasal cannula. Intake total 780 mL, output total not been recorded, balance of positive 780 mL. Weight this morning 60.5 kg. General: This is a 34-year-old female who does not appear in acute distreess, not using any accessory muscles, but sound slightly wheezy with nasal cannula in place. HEENT: Atraumatic. No jugular venous distention (JVD) noted surpisingly. Heart: Regular rate and rhythm. No audible murmurs. Lungs: Diffuse wheezing appreciated. Surprisingly no lower extremity edema. Abdomen: Soft, nontender. Bowel sounds are present. No right upper quadrant tenderness. Neurologic: Alert and oriented times three. No focal deficits noted. LABORATORIES: White blood count (WBC) 4.4, hemoglobin 8.5, hematocrit 26.7, platelets 154. Chemistry: Sodium 135, potassium 4.3, chloride 100, carbon dioxide 31, anion gap 4, BUN 19, creatinine 7.20, GFR 7.0, fasting glucose 85, calcium 8.9. Gallbladder ultrasound that she had this morning official report currently pending. The reason of the exam was elevated bilirubin. Impression that is unreviewed says thickened edematous gallbladder wall at 9 mm in diameter. No gallstones or biliary dilatation, with right renal atrophy. ASSESSMENT AND PLAN: 1. Shortness of breath. Possibly related to her uncontrolled hypertension and volume overload. She removed 3 liters on dialysis 2 days prior on 11/20/2019. On exam today, she did have some wheezing. It is possibly secondary fluid overload. So, we will go to dialysis today. The aim is to remove 3 liters of fluid and see how she tolerates it. Her blood pressure is significantly elevated today. So, I believe that the fluid removal will help with that as well. We will continue to monitor. Recommendation is to keep her admitted until fluid status and blood pressure is slightly more controlled. 2. Hypertension. Blood pressures continue to be elevated. She is on hydralazine 10 mg every 6 hours as needed for systolic greater than 150. She will be going to dialysis today and our goal is to remove 3 liters. I believe by removing some fluid her blood pressure control will improve as well. We will continue to monitor. 3. Elevated bilirubin. She continues to be asymptomatic. She underwent gallbladder ultrasound this morning that shows that she has an edematous gallbladder but with no distention or stones noted. It is possibly secondary to fluid overload at this current time, so will recheck her bilirubin tomorrow to see if it continues to be elevated. No urgent intervention needed at the current time. 4. Anemia. Currently stable at 8.5. She did drop slightly from 9.5 to 8.5 in the last [address] Levi if Aranesp will be needed to be added with dialysis treatments. I do not know if this is secondary to fluid overload status, but will monitor. If hemoglobin goes under 8, recommend to transfuse to maintain above 8.
[2019-11-23] MEDS: METOPROLOL SUCC (TopROL XL) 100MG *XL* TAB PO SCH (12:35)
[2019-11-23] MEDS: TELMISARTAN 20 MG TAB PO SCH (12:35)
[2019-11-23] MEDS: amLODIPine 10 MG TAB PO SCH (12:36)
[2019-11-23] MEDS: cloNIDine 0.1 MG TAB PO SCH ×2 (12:36→15:17)
[2019-11-23] MEDS: ISOSORBIDE MON. (IMDUR) 60 MG XR TAB PO SCH (12:37)
[2019-11-23] MEDS: BENZONATATE 100 MG CAP PO SCH (12:37)
--- NOTE | 2019-11-23 16:15 | DS.PDOC ---
Discharge Summary General Date of Admission Nov 22, 2019 at 16:06 Date of Discharge 11/23/19 Primary Care Physician: Johnathan Levi MD Attending Physician: Danielle Fields MD Discharge Summary HISTORY OF PRESENT ILLNESS: Patient is a 34-year-old W with a history of ESRD, on HD T,,Sat follows with Dr. Levi, HTN, allergy induced asthma, s/p parathyroidectomy, functional RUE arteriovenous fistula, who presented to the ED for SOB since 5d prior to admission without any fevers, chills, chest pain, palpitations, new cough, who is due for HD today and was referred by Dr. Levi for inpatient HD as her outpatient site is catering to a potential covid patient this afternoon. On presentation to the ED, she was hypertensive to the SBP 190s and was in mild dis tress with tachypnea and scattered expiratory wheezing that improved after albuterol/ipratropium mdi. She denied productive cough, chest pain, headache, blurry vision, fever, chills or vomiting. I spoke with Dr. Levi and he recommended admission to medicine with plan for HD this afternoon and the patient reported that she would like to be discharged home after HD. Initial work up was notable for clear CXR without infiltrates, effusions or significant pulmonary venous congestion, WBC 5.7, hgb 10, platelets of 167, na 128, K 4.8, Cr 7.71, VBG with pH 7.46/co2 36, proBNP >201854, lactate 1.5 ad TSH 4.9. Patient was admitted for hypertensive urgency, ESRD requiring additional fluid to be taken off. HOSPITAL COURSE: During patient's hospital stay, she had several sessions of hemodialysis. The patient's systolic blood pressure remained elevated between [id number]. When discussed with nephrology, this appears to be near her baseline. Hydralazine was added to her medication regimen while inpatient which helped some. After several sessions of hemodialysis, the patient felt markedly improved. She was gradually weaned off of oxygen and remained on room air for several days. On 11/23/2019 t he patient would for an additional hemodialysis session. Lower extremity edema had significantly improved. Chest x-ray showed stable mild cardiomegaly and diffuse interstitial prominence. SOB improved significantly with nebulizer treatments. No acute focal infiltrate bilaterally. T bili and alkaline phosphatase is elevated, gallbladder US showed thickened edematous gallbladder wall 9 mm in diameter. No gallstones or biliary dilatation. Right renal atrophy. Decision was made to discharge home with a diagnosis of hypertensive urgency, asymptomatic and end-stage renal disease, congestive heart failure. The patient is to follow-up with her primary care provider and nephrology in the next several weeks. At the time of discharge the patient denies shortness of breath, nausea, vomiting, fevers, chills, cough. ROS - all 12 points ROS negative except for what's stated in HPI PAST MEDICAL AND SURGICAL HISTORY: 1. End-stage renal disease, on hemodialysis Friday, , Friday via righ t AV fistula. 2. Hypertension. 3. Allergic asthma. 4. Parathyroidectomy. 5. Status post tonsillectomy. 6. Status post right AV fistula. 7. Active tobacco user. PAST SURGICAL HISTORY: 1. Fistula right arm SOCIAL HISTORY: Lives alone, recently been living with her mother. Admits to tobacco use. Denies alcohol use. FAMILY HISTORY: Reviewed and noncontributory. ALLERGIES: Please see below. DISCHARGE MEDICATIONS: Please see below. PHYSICAL EXAMINATION: CONSTITUTIONAL: No acute distress, resting comfortably, AAO x 3 EYES: PERRLA, EOM intact HENT, MOUTH: Normocephalic, atraumatic, moist mucous membranes, NECK: SUPPLE, no JVD, no lymphadenopathy, no carotid bruit CV: Regular rate and rhythm, S1S2 normal, no murmurs/rubs/gallops RESPIRATORY: Clear to auscultation bilaterally, no rales/rhonchi/wheezes GI: BS positive in 4 quadrants, soft, nontender, nondistended, no rebound or guarding, no organomegaly : Deferred MUSCULOSKELETAL: Normal ROM. No cyanosis, clubbing, swelling, joint deformity, nonpitting lower extremity edema INTEGUMENTARY: Right arm fistula with thrill appreciated, intact, no rashes, no lesions, no erythema NEUROLOGIC: Cranial Nerves II-XII are intact, no focal deficits PSYCHIATRIC: Mood and affect are normal LABORATORY DATA: Please see below IMAGING: Gallbladder US: Thickened edematous gallbladder wall 9 mm in diameter. No gallstones or biliary dilatation. Right renal atrophy. CXR: stable mild cardiomegaly and diffuse interstitial prominence. No acute focal infiltrate bilaterally. ASSESSMENT: 34 y/o F admitted for treatment of SOB likely 2/2 to asthma exacerbation, hypertensive urgecny, fluid overload, ESRD. PLAN: 1. Shortness of breath likely multifactorial to mild allergic asthma exacerbation, fluid overload. Much improved after combivent, hemodialysis. Started on ventolin inhaler PRN after discharge, c/w treatment of ESRD below. 2. HTN urgency: Has a history of noncompliance, medications adjusted some inpatient; however, per nephrology, recommend discharge on home regimen and will adjust on next visit if needed. At home, it is difficult controlling and may run as high as 170-200 mmHg systolic. C/w amlodipine, clonidine, toprol XL, telmisartan, phenoxybenzamine. 3. ESRD with volume overload. BNP >100K. S/p several sessions while admitted. C/w ESRD on TThSat. Dr. Levi to follow after discharge. 4. Hyperbilirubinemia. Improved after hemodialysis. Liver US with thickened edematous gallbladder wall, without gallstones or biliary dilatation. LDH wnl. To follow up with PCP with CMP. DISPOSITION: Discharged home in improved condition; however, BP still high. Offered to keep patient to further control high BP ; however, she did not wish to stay and states this is always how high her BP is. THis was confirmed with Kim Kathleen, nephrology resident. She is to follow closely with nephrology to possibly need to adjust home antihypertensive meds. TIME SPENT ON DISCHARGE: Greater than 30 minutes. Vital Signs/I&Os Vital Signs Date Time Temp Pulse Resp B/P (MAP) Pulse Ox O2 Delivery O2 Flow Rate FiO2 11/23/19 15:15 200/90 11/23/19 12:15 97.5 73 19 100 Room Air 11/22/19 16:00 2.0 I&O- Last 24 Hours up to 6 AM 11/23/19 06:00 Intake Total 540 ml Output Total 3000 ml Balance -2460 ml Laboratory Data Labs 24H Laboratory Tests 2 11/23/19 03:43: Reticulocyte # (auto) 88.2H, Nucleated Red Blood Cells % (auto) 0.0, Percent Reticulocyte Count 3.3H, Reticulocyte Hemoglobin Equivalent 32.9, D-Dimer, Quantitative 723.86H, Anion Gap 4L, Glomerular Filtration Rate 5.2L, Calcium Level 9.5, Total Bilirubin 1.3H, Direct Bilirubin 0.4H, Aspartate Amino Transf (AST/SGOT) 9, Alanine Aminotransferase (ALT/SGPT) 9L, Alkaline Phosphatase 40L, Lactate Dehydrogenase 164, Total Protein 6.7, Albumin 3.1L, Albumin/Globulin Ratio 0.9L CBC/BMP Laboratory Tests 11/23/19 03:43 Microbiology Microbiology 11/20/19 Blood Culture - Preliminary, Resulted No Growth after 72 hours. All specime... 11/20/19 Blood Culture - Preliminary, Resulted No Growth after 72 hours. All specime... Discharge Medications Scheduled Amlodipine Besylate (Amlodipine Besylate) 10 Mg Tab, 10 MG PO DAILY, (Reported) Calcium Acetate (Calcium Acetate) 667 Mg Cap, 2,001 MG PO TID, (Reported) before meals Clonidine HCl (Clonidine HCl) 0.1 Mg Tablet, 0.1 MG PO TID, (Reported) Doxazosin Mesylate (Doxazosin Mesylate) 1 Mg Tablet, 1 MG PO QHS, (Reported) Isosorbide Mononitrate (Isosorbide Mononitrate ER) 60 Mg Tab.er.24h, 60 MG PO BID, (Reported) Lanthanum Carbonate (Fosrenol) 1,000 Mg Chw, 1,000 MG PO TID, (Reported) with meals Metoprolol Succinate (Metoprolol Succinate) 200 Mg Tab.er.24h, 200 MG PO DAILY, (Reported) Patiromer Calcium Sorbitex (Veltassa) 8.4 Gm Pow, 8.4 GM PO 3XW, (Reported) takes days of dialysis tue, thur, sat Phenoxybenzamine HCl (Dibenzyline) 10 Mg Capsule, 20 MG PO QAM, (Reported) Phenoxybenzamine HCl (Dibenzyline) 10 Mg Capsule, 10 MG PO QPM, (Reported) Telmisartan (Telmisartan) 80 Mg Tablet, 80 MG PO DAILY, (Reported) Scheduled PRN Acetaminophen (Acetaminophen) 325 Mg Tablet, 650 MG PO QID PRN for PAIN, (Reported) Allergies Coded Allergies: Sulfa (Sulfonamide Antibiotics) (Verified Allergy, Unknown, 11/20/19) rash alcohol (Verified Allergy, Unknown, 11/20/19) wipes-blisters ceftriaxone (Verified Allergy, Unknown, 11/20/19) erythromycin base (Verified Allergy, Unknown, 11/20/19) vancomycin (Verified Allergy, Unknown, 11/20/19) whole body red TAPE (Verified Adverse Reaction, Mild, PLASTIC TAPE-SKIN IRRITATION AND BLISTERS, 04/29/17) Penicillins (Verified Adverse Reaction, Unknown, 11/20/19) Danielle Leo MD Nov 23, 2019 16:15
[2019-11-23] MEDS ORDERED: VENTAER INH (16:17)
--- NOTE | 2019-11-23 18:24 | IPN ---
DATE: 11/23/2019 Ms. Raya was seen and examined this morning during bedside rounds at the dialysis unit. She states she is feeling much better. Her wheezing has resolved completely. She has no abdominal discomfort. She has lost a significant amount of weight with all the dialysis sessions and the ultrafiltration sessions she has gotten since being admitted. She states that she probably lost a significant amount of weight and that is why she has been a little off on her dialysis. At the current time, she weighs 56.3 kg, and she believes this is her new dry weight. She has no other complaints today and wishes to go home. No overnight events were reported with the exception that her blood pressures continue to be elevated in the 190-200 systolics in the morning. She did not get her blood pressure medicine this morning prior to coming to dialysis. PHYSICAL EXAM: Vital Signs: Temperature 97.7, pulse 74, regular, respirations 20, blood pressure 198/80 (119), pulse oximetry 100% on room air. Intake total 540 mL, output total 3000 mL with a balance of negative 2460 mL. Hemodialysis had 3 liters removed and weight this morning was 56.3 kg. General: This is a very pleasant 34-year-old female who does not appear in acute distress, lying comfortably in the bed with a dialysis machine next to her, tolerating it very well. Atraumatic. Pupils are equal, round and reactive. Neck is supple. Jugular venous distention (JVD) has resolved. Heart sounds are regular with no audible murmurs. Lungs: No audible wheezing appreciated. Clear to auscultate today. Abdomen: Soft, nontender. Extremities: Lower extremity edema completely resolved. Right upper arm arteriovenous (AV) fistula is patent with a good bruit and thrill. Neurologic: Alert and oriented times three. At baseline mentation. LABORATORY DATA: Hematology: WBC 4.7, hemoglobin 8.0, hematocrit 25.1, platelets 142. Chemistry: Sodium 134, potassium 4.4, chloride 99, carbon dioxide 31, anion gap 4, BUN 30, creatinine 9.2, fasting glucose 84, calcium 9.5, total bilirubin 1.3, direct bilirubin 0.4, AST 9, ALT 9, alkaline phosphatase 40. Blood cultures times two: No growth for 48 hours. ASSESSMENT AND PLAN: 1. Shortness of breath has completely resolved after hemodialysis of having six liters removed from dialysis. She had an extra session of ultrafiltration yesterday, which she tolerated very well. I do believe the shortness of breath was possibly secondary to her uncontrolled hypertension and her volume overload state. Because her volume status has improved after this dialysis session, the patient is safe for discharge from a nephrology point of view. 2. Hypertension. Blood pressures continue to be significantly elevated. After reviewing the patient's medications, it appears that she has not been getting her phenoxybenzamine HCL that she takes in the morning and evening. We have adjusted her hydralazine dose to 50 mg three times a day, first dose now. Upon discharge, though, she can just resume back to her home hypertensive medication regimen that should control her systolic and diastolic. With continued dialysis, as well as her home regimen, I believe her hypertension should get better. The patient does have a history of being noncompliant, though, so I do predict this will be a little while to be resolved. 3. Elevated bilirubin. Repeat comprehensive metabolic panel (CMP) shows that the total bilirubin came down to 1.3 from 2.4 yesterday with no intervention with the exception of dialysis. This is consistent that the patient's possible elevated bilirubin was possibly from the fluid overload state. 4. Anemia. Currently stable at 8.0. At her next dialysis session, possibly will get Aranesp, which will be done outpatient, and they will followup outpatient. LAURYN
[2019-11-23] MEDS ORDERED: ISOSORBIDE MON. (IMDUR) 60 MG XR TAB PO SCH (21:00)
== END 2019-11-23 17:15 | disposition home or self-care (01) | DRG 640 ==
LOC: M ED 12:27 → M ED INP 12:28 → ENRESERV 16:05 → M PCU 20:49 → INTOOBSV 11-22 16:06 → OBSVTOIN 11-22 16:06
PROVIDERS: ADMIT Internal Medicine; ATTEND Internal Medicine
PROC: 6A601ZZ Phototherapy of Skin, Multiple (ICD-10-PCS; principal; 2019-11-22)
DX: E87.70 Fluid overload, unspecified (principal); N18.6 End stage renal disease; J45.901 Unspecified asthma with (acute) exacerbation; N25.81 Secondary hyperparathyroidism of renal origin; R17 Unspecified jaundice; I16.0 Hypertensive urgency; E87.1 Hypo-osmolality and hyponatremia; I10 Essential (primary) hypertension; F17.200 Nicotine dependence, unspecified, uncomplicated; Z79.899 Other long term (current) drug therapy; Z88.2 Allergy status to sulfonamides; Z88.8 Allergy status to other drugs, medicaments and biological substances; Z88.0 Allergy status to penicillin; D63.1 Anemia in chronic kidney disease; Z91.14 Patient's other noncompliance with medication regimen

== ENCOUNTER 2020-10-01 12:13 | Emergency (ER) | payer MEDICARE, MEDICAID ==
[~2020-10-01] VITALS: Ht 162.6 cm; Wt 56.0 kg
[~2020-10-01 12:13] MED LIST changes: +ACET-910 PO; -AMLO10TA5; -AMLO10TA5 PO; +AMLO1TAB25; +AMLO1TAB25 PO; +CLON-412 PO; +DOXA1TAB42 PO; +ISOS1TAB35 PO; +ISOS1TAB36 PO; -ISOS30TA4 PO; -LISI-538; -LISI-538 PO; +LISI20TA33; +LISI20TA33 PO; +METO200T28 PO; +TELM1TAB37 PO; +VENTAER INH; +[UNRECOGNIZED DRUG - CODE] PO
[2020-10-01] MEDS ORDERED: ONDANSETRON 4 MG ORAL DISINTEGRATING TAB PO ONE (12:35)
[2020-10-01] MEDS ORDERED: ACETAMINOPHEN 500 MG TAB PO ONE (12:35)
--- NOTE | 2020-10-01 12:45 | REP ---
INDICATION: cough. COMPARISON: 11/20/2019. TECHNIQUE: SINGLE PORTABLE AP VIEW OF THE CHEST WAS PERFORMED. FINDINGS: Mild cardiomegaly is again noted. There is no acute infiltrate or pulmonary edema. Mediastinal silhouette is unchanged. The visualized osseous structures are unremarkable. IMPRESSION: NO ACUTE PULMONARY DISEASE.Mild cardiomegaly. <Electronically signed by Dewanye Tucker > 10/01/20 [id number]
[2020-10-01] MEDS ORDERED: METOPROLOL SUCC (TopROL XL) 100MG *XL* TAB PO ONE (13:50)
[2020-10-01] MEDS ORDERED: ISOSORBIDE MON. (IMDUR) 60 MG XR TAB PO ONE (13:50)
[2020-10-01] MEDS ORDERED: cloNIDine 0.1MG TABLET PO ONE (13:50)
[2020-10-01 15:02] VITALS: BP 204/106
[2020-10-01 15:57] VITALS: BP 161/101
[2020-10-01] MEDS ORDERED: ONDA4TAB6 PO (16:17)
[2020-10-02] MEDS ORDERED: TELMISARTAN 20 MG TAB PO SCH (09:00)
== END 2020-10-01 16:37 | disposition home or self-care (01) ==
LOC: M ED 12:13
DX: R11.2 Nausea with vomiting, unspecified (principal); R05 Cough; J45.909 Unspecified asthma, uncomplicated; Z20.822 Contact with and (suspected) exposure to COVID-19; I51.7 Cardiomegaly; E21.5 Disorder of parathyroid gland, unspecified; N18.6 End stage renal disease; Z99.2 Dependence on renal dialysis; Z88.0 Allergy status to penicillin; Z88.1 Allergy status to other antibiotic agents; Z88.2 Allergy status to sulfonamides; Z79.899 Other long term (current) drug therapy
CPT/HCPCS: 71045; 87798; 99283; Q0162

== ENCOUNTER 2021-03-08 16:00 | Emergency (ER) | payer OTHER, MEDICAID ==
[~2021-03-08] VITALS: Ht 162.6 cm; Wt 55.0 kg
[2021-03-08 16:40] LABS: EOS # 0.2 10^3/uL (0.0-0.5); EOS % 4.4 % (0.0-3.0); HEMATOCRIT 38.8 % (36.0-47.0); HEMOGLOBIN 13.2 g/dl (12.0-15.5); LYMPH # 0.8 10^3/uL (1.5-5.0); LYMPH % 21.6 % (24.0-44.0); MEAN CORPUSCULAR HEMOGLOBIN 30.6 pg (27.0-33.0); MONO # 0.3 10^3/uL (0.0-0.8); MONO % 7.5 % (2.0-8.0); NEUTROPHILS # 2.5 10^3/uL (1.5-8.5); NEUTROPHILS % 64.5 % (36.0-66.0); PLATELET COUNT, AUTOMATED 124 10^3/uL (150-450); RED BLOOD COUNT 4.31 10^6/uL (4.00-5.40); WHITE BLOOD COUNT 3.9 10^3/uL (4.0-10.0)
[2021-03-08] MEDS ORDERED: ACETAMINOPHEN 325 MG TAB PO ONE (16:40)
--- NOTE | 2021-03-08 16:42 | REP ---
INDICATION: DYSPNEA/COUGH. COMPARISON: 10/01/2020 also portable TECHNIQUE: Portable FINDINGS: The technique utilized in obtaining the radiograph has magnified the cardiac silhouette and accentuated the interstitial markings. There is cardiomegaly accentuated by technique status quo. The interstitial markings have diffusely increased compared to the prior exam. There are no patchy opacities or pleural effusions. The osseous structures are stable and intact. IMPRESSION: There is evidence of mild interstitial edema accentuated by technique. <Electronically signed by Seun Betancourt > 03/08/21 0724
[2021-03-08] MEDS ORDERED: cloNIDine 0.1MG TABLET PO ONE (16:50)
[2021-03-08 17:08] LABS: ALT/SGPT 22 U/L (12-78); BILIRUBIN,DIRECT 0.8 MG/DL (0.0-0.2); BLOOD UREA NITROGEN 16 MG/DL (7-18); CALCIUM LEVEL 7.8 MG/DL (8.5-10.1); CARBON DIOXIDE LEVEL 27 MEQ/L (21-32); CHLORIDE LEVEL 94 MEQ/L (98-107); CK-MB VALUE MASS < 1.0 NG/ML (<3.6); CPK CREATINE PHOSPHOKINASE 70 U/L (26-192); CREATININE FOR GFR 4.43 MG/DL (0.55-1.30); GLOMERULAR FILTRATION RATE 12.2 (>60); GLUCOSE, FASTING 70 MG/DL (70-100); MB/CK RELATIVE INDEX 1.43 (< OR =4); POTASSIUM SERUM 3.5 MEQ/L (3.5-5.1); SODIUM LEVEL 135 MEQ/L (136-145); TOTAL PROTEIN 7.3 GM/DL (6.4-8.2); TROPONIN I 0.06 NG/ML (< 0.10)
[2021-03-08] MEDS ORDERED: DOXAZOSIN MESYLATE 1 MG TAB PO STA (18:29)
[2021-03-08] MEDS ORDERED: ISOSORBIDE MON. (IMDUR) 60 MG XR TAB PO ONE (18:35)
[2021-03-08 19:25] VITALS: BP 179/108
[2021-03-08] MEDS ORDERED: METOPROLOL SUCC (TopROL XL) 100MG *XL* TAB PO ONE (19:25)
[2021-03-08 21:00] VITALS: BP 176/100
--- NOTE | 2021-03-09 05:28 | ECGEPIP ---
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
--- NOTE | 2021-03-09 06:46 | ED PDOC ---
Post-Departure Follow-Up dr singleton faxed fomral report of cxr for fu yunig Deepa Mckenzie MD Mar 09, 2021 06:46
== END 2021-03-08 20:35 | disposition home or self-care (01) ==
LOC: EDBD 16:00 → M ED 16:00
DX: U07.1 COVID-19 (principal); R94.31 Abnormal electrocardiogram [ECG] [EKG]; I12.0 Hypertensive chronic kidney disease with stage 5 chronic kidney disease or end stage renal disease; N18.6 End stage renal disease; D63.1 Anemia in chronic kidney disease; Z99.2 Dependence on renal dialysis; E21.3 Hyperparathyroidism, unspecified; Z88.0 Allergy status to penicillin; Z88.1 Allergy status to other antibiotic agents; Z88.2 Allergy status to sulfonamides; Z91.048 Other nonmedicinal substance allergy status; Z79.899 Other long term (current) drug therapy; F17.200 Nicotine dependence, unspecified, uncomplicated

== ENCOUNTER 2021-03-08 21:25 | Outpatient (CLI) | payer OTHER, MEDICAID ==
[~2021-03-08] VITALS: Ht 154.9 cm; Wt 55.0 kg
[2021-03-08 21:25] VITALS: BP 171/93
[~2021-03-08 21:25] MED LIST changes: +ACETAMINOPHEN TAB 650MG DOSE (2X325MG) PO PRN; +ALBUTEROL 90 MCG/ACT 8GM HFA INHALER INH PRN; +ALBUTEROL SULFATE 2.5 MG/0.5 ML INH NEB SOLN INH PRN; +EPINEPHrine INJ 1 MG/ML 1ML AMP IM PRN; +NS 1,000 ML IV SCH; +diphenhydrAMINE 50MG/ML VIAL (J1200) IV PRN; +methylPREDNISolone 125MG 2ML VIAL IV PRN
[2021-03-08] MEDS ORDERED: CASIRIVIMAB/IMDEVIMAB 1,200 MG in NS 250 ML IV ONE (22:00)
[2021-03-08 22:10] VITALS: BP 168/93
[2021-03-08 22:11] VITALS: BP 168/93
[2021-03-08 22:43] VITALS: BP 159/77
[2021-03-08 23:13] VITALS: BP 177/95
[2021-03-08 23:47] VITALS: BP 166/95
[2021-03-09 00:22] VITALS: BP 170/95
[2021-03-09 00:38] VITALS: BP 173/89
== END 2021-03-09 01:13 | disposition home or self-care (01) ==
LOC: M 4MAIN 21:25 → M OPCLI4 21:25
PROVIDERS: ATTEND Internal Medicine
DX: U07.1 COVID-19 (principal); Z88.0 Allergy status to penicillin; Z88.1 Allergy status to other antibiotic agents; Z88.2 Allergy status to sulfonamides; Z91.048 Other nonmedicinal substance allergy status

== ENCOUNTER 2021-04-30 17:14 | Inpatient (IN) | payer OTHER, MEDICAID ==
[~2021-04-30] VITALS: Ht 162.6 cm; Wt 58.0 kg
[~2021-04-30 17:14] MED LIST changes: -ACETAMINOPHEN TAB 650MG DOSE (2X325MG) PO PRN; -ALBUTEROL 90 MCG/ACT 8GM HFA INHALER INH PRN; -ALBUTEROL SULFATE 2.5 MG/0.5 ML INH NEB SOLN INH PRN; -EPINEPHrine INJ 1 MG/ML 1ML AMP IM PRN; -NS 1,000 ML IV SCH; -diphenhydrAMINE 50MG/ML VIAL (J1200) IV PRN; -methylPREDNISolone 125MG 2ML VIAL IV PRN
--- OUTSIDE RECORDS SUMMARY | 2021-04-30 17:22 | CCD ---
Author Author [facility] Organization [facility] Address Unknown Phone Unavailable Care Team Providers Care [place] Programs Director Name Role Phone VAL PATEL PA Unavailable Unavailable AMANDA, VAL PA Unavailable Unavailable AMANDA, VAL PA Unavailable Unavailable AMANDA, VAL PA Unavailable Unavailable AMANDA, VAL PA Unavailable Unavailable AMANDA, VAL PA Unavailable Unavailable AMANDA, VAL PA Unavailable Unavailable AMANDA, VAL PA Unavailable Unavailable AMANDA, VAL PA Unavailable Unavailable AMANDA, VAL PA Unavailable Unavailable AMANDA, VAL PA Unavailable Unavailable AMANDA, VAL PA Unavailable Unavailable AMANDA, VAL PA Unavailable Unavailable AMANDA, VAL PA Unavailable Unavailable AMANDA, VAL PA Unavailable Unavailable AMANDA, VAL PA Unavailable Unavailable AMANDA, VAL PA Unavailable Unavailable AMANDA, VAL PA Unavailable Unavailable AMANDA, VAL PA Unavailable Unavailable AMANDA, VAL PA Unavailable Unavailable AMANDA, VAL PA Unavailable Unavailable AMANDA, VAL PA Unavailable Unavailable AMANDA, VAL PA Unavailable Unavailable AMANDA, VAL PA Unavailable Unavailable AMANDA, VAL PA Unavailable Unavailable AMANDA, VAL PA Unavailable Unavailable AMANDA, VAL PA Unavailable Unavailable AMANDA, VAL PA Unavailable Unavailable AMANDA, VAL PA Unavailable Unavailable AMANDA, VAL PA Unavailable Unavailable AMANDA, VAL PA Unavailable Unavailable AMANDA, VAL PA Unavailable Unavailable AMANDA, VAL PA Unavailable Unavailable AMANDA, VAL PA Unavailable Unavailable AMANDA, VAL PA Unavailable Unavailable VAL PATEL Unavailable Unavailable Re-disclosure Warning The records that you are about to access may contain information from federally-assisted alcohol or drug abuse programs. If such information is present, then the following federally mandated warning applies: This information has been disclosed to you from records protected by federal confidentiality rules (42 CFR part 2). The federal rules prohibit you from making any further disclosure of this information unless further disclosure is expressly permitted by the written consent of the person to whom it pertains or as otherwise permitted by 42 CFR part 2. A general authorization for the release of medical or other information is NOT sufficient for this purpose. The Federal rules restrict any use of the information to criminally investigate or prosecute any alcohol or drug abuse patient.The records that you are about to access may contain highly sensitive health information, the redisclosure of which is protected by Article 27-F of the [facility] Public Health law. If you continue you may have access to information: Regarding HIV / AIDS; Provided by facilities licensed or operated by the [facility] Office of Mental Health; or Provided by the [facility] Office for People With Developmental Disabilities. If such information is present, then the following [facility] mandated warning applies: This information has been disclosed to you from confidential records which are protected by state law. State law prohibits you from making any further disclosure of this information without the specific written consent of the person to whom it pertains, or as otherwise permitted by law. Any unauthorized further disclosure in violation of state law may result in a fine or usp sentence or both. A general authorization for the release of medical or other information is NOT sufficient authorization for further disc losure. Encounters Encounter Providers Location Date Indications Data Source(s ) Outpatient Attender: VAL ratliff 10/01/2020 11:05:00 AM EDT [facility] ([facility], [facility]) Medications Medication Brand Name Start Date Product Form Dose Route Admi nistrative Instructions Pharmacy Instructions Status Indications Reaction Description Data Source(s) Ondansetron 4 MG Disintegrating Oral Tablet ONDANSETRON 10/02/2020 12:00:00 AM EDT tablet,disintegrating 8 PLACE ONE TABLET BY MOUTH EVERY 6 TO 8 HOURS NEEDED OR NAUSEA/VOMITING PLACE ONE TABLET BY MOUTH EVERY 6 TO 8 H OURS NEEDED OR NAUSEA/VOMITING SOLD: 10/02/2020 [facility] 10 mg 06/21/2020 12:00:00 AM EST tablet 90 TAKE ONE TABLET BY MOUTH EVERY DAY TAKE ONE TABLET BY MOUTH EVERY DAY SOLD: 10/13/2020 [facility] 10 mg 06/21/2020 12:00:00 AM EST capsule 90 TAKE TWO CAPSULES BY MOUTH EVERY MORNING AND TAKE ONE CAPSULE BY MOUTH EVERY EVENING TAKE TWO CAPSULES BY MOUTH EVERY MORNING AND TAKE ONE CAPSULE BY MOUTH EVERY EVENING SOLD: 06/24/2020 [facility] 10 mg 06/21/2020 12:00:00 AM EST tablet 90 TAKE ONE TABLET BY MOUTH EVERY DAY TAKE ONE TABLET BY MOUTH EVERY DAY SOLD: 06/24/2020 [facility] 8.4 gram 06/14/2020 12:00:00 AM EST powder in packet 16 DISSOLVE ONE PACKET IN 1/3 CUP OF WATER AND TAKE EVERY FRIDAY, FRIDAY, FRIDAY, AND FRIDAY DISSOLVE ONE PACKET IN 1/3 CUP OF WATER AND TAKE EVERY FRIDAY, FRIDAY, FRIDAY, AND FRIDAY SOLD: 06/24/2020 [facility] 8.4 gram 06/14/2020 12:00:00 AM EST powder in packet 16 DISSOLVE ONE PACKET IN 1/3 CUP OF WATER AND TAKE EVERY FRIDAY, FRIDAY, FRIDAY, AND FRIDAY DISSOLVE ONE PACKET IN 1/3 CUP OF WATER AND TAKE EVERY FRIDAY, FRIDAY, FRIDAY, AND FRIDAY SOLD: 07/17/2020 [facility] Clonidine Hydrochloride 0.1 MG Oral Tablet CLONIDINE HCL 06/09/2020 12:00:00 AM EST tablet 90 TAKE ONE TABLET BY MOUTH THREE TIMES A DAY, HOLD DOSE BEFORE DIALYSIS TREATMENTS TAKE ONE TABLET BY MOUTH THREE TIMES A D AY, HOLD DOSE BEFORE DIALYSIS TREATMENTS SOLD: 10/13/2020 [facility] Clonidine Hydrochloride 0.1 MG Oral Tablet CLONIDINE HCL 06/09/2020 12:00:00 AM EST tablet 90 TAKE ONE TABLET BY MOUTH THREE TIMES A DAY, HOLD DOSE BEFORE DIALYSIS TREATMENTS TAKE ONE TABLET BY MOUTH THREE TIMES A D AY, HOLD DOSE BEFORE DIALYSIS TREATMENTS SOLD: 06/14/2020 [facility] Clonidine Hydrochloride 0.1 MG Oral Tablet CLONIDINE HCL 06/09/2020 12:00:00 AM EST tablet 90 TAKE ONE TABLET BY MOUTH THREE TIMES A DAY, HOLD DOSE BEFORE DIALYSIS TREATMENTS TAKE ONE TABLET BY MOUTH THREE TIMES A D AY, HOLD DOSE BEFORE DIALYSIS TREATMENTS SOLD: 08/10/2020 [facility] 60 mg 05/01/2020 12:00:00 AM EST tablet extended release 24 hr 60 TAKE ONE TABLET BY MOUTH TWICE A DAY TAKE ONE TABLET BY MOUTH TWICE A DAY SOLD: 07/17/2020 [facility] 60 mg 05/01/2020 12:00:00 AM EST tablet extended release 24 hr 60 TAKE ONE TABLET BY MOUTH TWICE A DAY TAKE ONE TABLET BY MOUTH TWICE A DAY SOLD: 09/16/2020 [facility] 60 mg 05/01/2020 12:00:00 AM EST tablet extended release 24 hr 60 TAKE ONE TABLET BY MOUTH TWICE A DAY TAKE ONE TABLET BY MOUTH TWICE A DAY SOLD: 06/06/2020 [facility] 60 mg 05/01/2020 12:00:00 AM EST tablet extended release 24 hr 60 TAKE ONE TABLET BY MOUTH TWICE A DAY TAKE ONE TABLET BY MOUTH TWICE A DAY SOLD: 05/02/2020 [facility] telmisartan 80 MG Oral Tablet TELMISARTAN 04/10/2020 12:00:00 AM EDT tablet 30 TAKE ONE TABLET BY MOUTH EVERY DAY TAKE ONE TABLET BY MOUTH EVERY DAY SOLD: 05/17/2020 [facility] telmisartan 80 MG Oral Tablet TELMISARTAN 04/10/2020 12:00:00 AM EDT tablet 30 TAKE ONE TABLET BY MOUTH EVERY DAY TAKE ONE TABLET BY MOUTH EVERY DAY SOLD: 09/22/2020 [facility] telmisartan 80 MG Oral Tablet TELMISARTAN 04/10/2020 12:00:00 AM EDT tablet 30 TAKE ONE TABLET BY MOUTH EVERY DAY TAKE ONE TABLET BY MOUTH EVERY DAY SOLD: 04/11/2020 [facility] telmisartan 80 MG Oral Tablet TELMISARTAN 04/10/2020 12:00:00 AM EDT tablet 30 TAKE ONE TABLET BY MOUTH EVERY DAY TAKE ONE TABLET BY MOUTH EVERY DAY SOLD: 08/10/2020 [facility] telmisartan 80 MG Oral Tablet TELMISARTAN 04/10/2020 12:00:00 AM EDT tablet 30 TAKE ONE TABLET BY MOUTH EVERY DAY TAKE ONE TABLET BY MOUTH EVERY DAY SOLD: 06/24/2020 [facility] 10 mg 04/01/2020 12:00:00 AM EDT capsule 90 TAKE TWO CAPSULES BY MOUTH EVERY MORNING AND TAKE ONE CAPSULE BY MOUTH EVERY EVENING TAKE TWO CAPSULES BY MOUTH EVERY MORNING AND TAKE ONE CAPSULE BY MOUTH EVERY EVENING SOLD: 05/17/2020 [facility] 10 mg 04/01/2020 12:00:00 AM EDT capsule 90 TAKE TWO CAPSULES BY MOUTH EVERY MORNING AND TAKE ONE CAPSULE BY MOUTH EVERY EVENING TAKE TWO CAPSULES BY MOUTH EVERY MORNING AND TAKE ONE CAPSULE BY MOUTH EVERY EVENING SOLD: 04/11/2020 [facility] Doxazosin 1 MG Oral Tablet DOXAZOSIN MESYLATE 02/23/2020 12:00:00 A M EDT tablet 90 TAKE 1 TABLET BY MOUTH DAILY AT BEDTIME TAKE 1 TABLET BY MOUTH DAILY AT BEDTIME SOLD: 07/17/2020 [facility] 10 mg 02/05/2020 12:00:00 AM EDT capsule 90 TAKE TWO CAPSULES BY MOUTH EVERY MORNING AND ONE IN THE EVENING TAKE TWO CAPSULES BY MOUTH EVERY MORNING AND ONE IN THE EVENING SOLD: 03/10/2020 [facility] uganita 200 mg 01/21/2020 12:00:00 AM EDT tablet extended release 24 hr 90 TAKE ONE TABLET BY MOUTH EVERY DAY TAKE ONE TABLET BY MOUTH EVERY DAY SOLD: 05/02/2020 [facility] telmisartan 80 MG Oral Tablet TELMISARTAN 11/04/2019 12:00:00 AM EDT tablet 30 TAKE ONE TABLET BY MOUTH EVERY DAY TAKE ONE TABLET BY MOUTH EVERY DAY SOLD: 03/10/2020 [facility] 60 mg 09/09/2019 12:00:00 AM EDT tablet extended release 24 hr 60 TAKE ONE TABLET BY MOUTH TWICE A DAY TAKE ONE TABLET BY MOUTH TWICE A DAY SOLD: 03/22/2020 [facility] 10 mg 06/11/2019 12:00:00 AM EST tablet 90 TAKE ONE TABLET BY MOUTH EVERY DAY TAKE ONE TABLET BY MOUTH EVERY DAY SOLD: 03/22/2020 [facility] Clonidine Hydrochloride 0.1 MG Oral Tablet CLONIDINE HCL 06/11/2019 12:00:00 AM EST tablet 90 TAKE ONE TABLET BY MOUTH THREE TIMES A DAY, HOLD DOSE BEFORE DIALYSIS TREATMENTS TAKE ONE TABLET BY MOUTH THREE TIMES A D AY, HOLD DOSE BEFORE DIALYSIS TREATMENTS SOLD: 04/11/2020 [facility] Insurance Providers Payer name Policy type / Coverage type Policy ID Covered democrat ID Covered democrat's relationship to casey Policy [place] Plan Information MEDICARE [id number] SP [id number] HUMANA GOLD [id number] SP [id number] [employer] GOLD [id number] SP [id number] MEDICARE A [id number] Self [id number] MEDICARE A [id number] Self [id number] A MEDICARE [id number] SP [id number] A MEDICARE [id number] SP [id number] A MEDICARE [id number] SP [id number] MEDICAID [id number] MEDICAID [id number] Self [id number] [place] [id number] SP [id number] MEDICAID [id number] SP [id number] [place] [id number] SP [id number] S [id number] [employer] GOLD [id number] SP [id number] MEDICARE C [id number] S [id number] MEDICAID [id number] S [id number] MEDICARE C [id number] S [id number] A MEDICARE P [id number] S [id number] M [id number] S [id number] A [employer] GOLD [id number] SP [id number] Problems, Conditions, and Diagnoses No Information Surgeries/Procedures No Information Results ID Date Data Source [id number] 03/08/2021 04:24:00 PM EDT [facility] Name Value Range Interpretation Code Description Data Elizabeth rce(s) Supporting Document(s) Respiratory pathogens identified [Type] in Nasopharynx by Probe and target amplification method SARS-CoV-2 (COVID 19) [facility] This lab was ordered by [facility] a nd reported by [facility]. ID Date Data Source [id number] 03/08/2021 04:09:00 PM EDT [facility] Name Value Range Interpretation Code Description Data Elizabeth rce(s) Supporting Document(s) SARS COVID ANTIGEN NEGATIVE [facility] This lab was ordered by [facility] a nd reported by [facility]. ID Date Data Source [id number] 01/24/2021 04:09:00 PM EDT [facility] Name Value Range Interpretation Code Description Data Elizabeth rce(s) Supporting Document(s) SARS coronavirus 2 RdRp gene [Presence] in Respiratory specimen by YOBANI with probe detection Negative [facility] This lab was ordered by [facility] and re ported by [facility]. ID Date Data Source [id number] 10/01/2020 02:51:00 PM EDT [facility] Name Value Range Interpretation Code Description Data Elizabeth rce(s) Supporting Document(s) SARS-CoV-2 (COVID 19) NEGATIVE - SARS-CoV-2 (COVID19) [facility] This lab was ordered by [facility] a nd reported by [facility]. ID Date Data Source [id number] 10/01/2020 01:04:00 PM EDT [facility] Name Value Range Interpretation Code Description Data Elizabeth rce(s) Supporting Document(s) SARS COVID ANTIGEN NEGATIVE [facility] This lab was ordered by [facility] a nd reported by [facility]. Procedure Social History No Information Vital Signs ID Date Data Source UNK Name Value Range Interpretation Code Description Data Source(s) Body mass index (BMI) [Ratio] 20.6 kg/m2 20.6 k g/m2 [facility] ([facility], [facility]) Oxygen saturation in Arterial blood by Pulse oximetry 96 % 96 % [facility] ([facility]) Body temperature 98.2 [degF] 98.2 [degF] [facility] ([facility]) Body weight 120.00 [lb_av] 120.00 [lb_av] [facility] ([facility], [facility]) Body height 64 [in_i] 64 [in_i] [facility] ([facility]) 5'4" Respiratory rate 20 /min 20 /min [facility] ( [facility]) Systolic blood pressure 217 mm[Hg] 217 mm[Hg] [facility] ([facility]) Diastolic blood pressure 136 mm[Hg] 136 mm[Hg] [facility] ([facility]) Heart rate 103 /min 103 /min [facility] ([facility], [facility])
--- NOTE | 2021-04-30 18:52 | REP ---
INDICATION: DYSPNEA/COUGH. COMPARISON: Multiple the latest 03/08/2021 TECHNIQUE: Portable FINDINGS: The technique utilized in obtaining the radiograph has magnified the cardiac silhouette and accentuated the interstitial markings. There is global cardiomegaly. There is a subtle increase in the interstitial markings status quo. No acute patchy parenchymal opacities or pleural effusions have developed. IMPRESSION: Global cardiomegaly and persistent mild interstitial edema. <Electronically signed by Seun Betancourt > 04/30/21 [id number]
--- OUTSIDE RECORDS SUMMARY | 2021-04-30 18:56 | CCD ---
Author Author [facility] Organization [facility] Address Unknown Phone Unavailable Care Team Providers Care District Branch Manager Name Role Phone VAL PATEL PA Unavailable [...] is protected by Article 27-F of the [facility] Public Health law. If you continue you may have access to information: Regarding HIV / AIDS; Provided by facilities licensed or operated by the [facility] Office of Mental Health; or Provided by the [facility] Office for People With Developmental Disabilities. If such information is present, then the following [facility] mandated warning applies: This information has [...] law may result in a fine or fpc sentence or both. A general authorization for the release of medical or other information is NOT sufficient authorization for further disc losure. Encounters Encounter Providers Location Date Indications Data Source(s ) Outpatient Attender: VAL ratliff 10/01/2020 11:05:00 AM EDT [facility] ([facility], [facility]) Medications Medication Brand Name Start Date Product [...] type / Coverage type Policy ID Covered constitution party ID Covered constitution party's relationship to casey Policy Casey Plan Information MEDICARE [id number] SP [id number] HUMANA GOLD [id number] SP [id number] HUMANA GOLD [id number] SP [id number] MEDICARE A [id number] Self [id number] [id number] MEDICARE A [id number] Self [id number] A MEDICARE [id number] SP [id number] A MEDICARE [id number] SP [id number] A MEDICARE [id number] SP [id number] MEDICAID [id number] SP [id number] MEDICAID M [id number] Self [id number] [place] [id number] SP [id number] D MEDICAID [id number] SP [id number] EMEDNY [id number] SP [id number] S [id number] HUMANA GOLD [id number] SP [id number] MEDICARE C [id number] S [id number] [id number] MEDICAID M [id number] S [id number] MEDICARE C [id number] S [id number] A MEDICARE P [id number] S [id number] M [id number] S [id number] A HUMANA GOLD [id number] SP [id number] Problems, Conditions, and Diagnoses No Information Surgeries/Procedures No Information Results ID Date Data Source [id number] 03/08/2021 04:24:[address] [facility] Name Value Range Interpretation Code Description Data Elizabeth rce(s) Supporting Document(s) Respiratory pathogens identified [Type] in Nasopharynx by Probe and target amplification method SARS-CoV-2 (COVID 19) [facility] This lab was ordered by [facility] a nd reported by [facility]. ID Date Data Source [id number] 03/08/2021 04:09:[address] [facility] Name Value Range Interpretation Code Description Data Elizabeth rce(s) Supporting Document(s) SARS COVID ANTIGEN NEGATIVE [facility] This lab was ordered by [facility] a nd reported by [facility]. ID Date Data Source [id number] 01/24/2021 04:09:[address] [facility] Name Value Range Interpretation Code Description Data Elizabeth rce(s) Supporting Document(s) SARS coronavirus 2 RdRp gene [Presence] in Respiratory specimen by YOBANI with probe detection Negative [facility] This lab was ordered by [facility] and re ported by [facility]. ID Date Data Source [id number] 10/01/2020 02:51:00 PM EDT [facility] Name Value Range Interpretation Code Description Data Elizabeth rce(s) Supporting Document(s) SARS-CoV-2 (COVID 19) NEGATIVE - SARS-CoV-2 (COVID19) [facility] This lab was ordered by [facility] a nd reported by [facility]. ID Date Data Source [id number] 10/01/2020 01:04:00 PM EDT [facility] Name Value Range Interpretation Code Description Data Elizabeth rce(s) Supporting Document(s) SARS COVID ANTIGEN NEGATIVE [facility] This lab was ordered by [facility] a nd reported by [facility]. Procedure Social History No Information Vital Signs ID Date Data Source UNK Name Value Range Interpretation Code Description Data Source(s) Oxygen saturation in Arterial blood by Pulse oximetry 96 % 96 % [facility] ([facility], [facility]) Body temperature 98.2 [degF] 98.2 [degF] [facility] ([facility]) Body weight 120.00 [lb_av] 120.00 [lb_av] [facility] ([facility]) Body height 64 [in_i] 64 [in_i] [facility] ([facility]) 5'4" Body mass index (BMI) [Ratio] 20.6 kg/m2 20.6 k g/m2 [facility] ([facility]) Respiratory rate 20 /min 20 /min [facility] ( [facility]) Systolic blood pressure 217 mm[Hg] 217 mm[Hg] [facility] ([facility]) Diastolic blood pressure 136 mm[Hg] 136 mm[Hg] [facility] ([facility]) Heart rate 103 /min 103 /min [facility] ([facility])
[2021-04-30] MEDS ORDERED: COMBIVENT RESPIMAT 100-20MCG INHALER 4GM INH STA (19:44)
[2021-04-30] MEDS ORDERED: ACETAMINOPHEN 325 MG TAB PO ONE (19:50)
[2021-04-30 20:05] LABS: BASO # 0.1 10^3/uL (0.0-0.2); BASO % 1.3 % (0.0-1.0); EOS # 0.2 10^3/uL (0.0-0.5); EOS % 2.6 % (0.0-3.0); HEMATOCRIT 39.1 % (36.0-47.0); HEMOGLOBIN 13.1 g/dl (12.0-15.5); LYMPH # 1.7 10^3/uL (1.5-5.0); LYMPH % 20.2 % (24.0-44.0); MEAN CORPUSCULAR HGB CONC 33.5 g/dl (32.0-36.5); MEAN CORPUSCULAR VOLUME 89.7 fl (80.0-96.0); MONO # 0.7 10^3/uL (0.0-0.8); MONO % 7.9 % (2.0-8.0); NEUTROPHILS # 5.7 10^3/uL (1.5-8.5); NEUTROPHILS % 67.4 % (36.0-66.0); PLATELET COUNT, AUTOMATED 128 10^3/uL (150-450); RED BLOOD COUNT 4.36 10^6/uL (4.00-5.40); WHITE BLOOD COUNT 8.4 10^3/uL (4.0-10.0)
[2021-04-30] MEDS ORDERED: cloNIDine 0.1MG TABLET PO ONE (20:25)
[2021-04-30] MEDS ORDERED: METOPROLOL SUCC (TopROL XL) 100MG *XL* TAB PO ONE (20:25)
[2021-04-30 20:48] LABS: ALBUMIN 3.3 GM/DL (3.2-5.2); ALT/SGPT 31 U/L (12-78); BILIRUBIN,TOTAL 1.9 MG/DL (0.2-1.0); BLOOD UREA NITROGEN 55 MG/DL (7-18); CALCIUM LEVEL 9.3 MG/DL (8.5-10.1); CARBON DIOXIDE LEVEL 23 MEQ/L (21-32); CHLORIDE LEVEL 95 MEQ/L (98-107); CK-MB VALUE MASS < 1.0 NG/ML (<3.6); CPK CREATINE PHOSPHOKINASE 38 U/L (26-192); CREATININE FOR GFR 8.38 MG/DL (0.55-1.30); GLOMERULAR FILTRATION RATE 5.8 (>60); GLUCOSE, FASTING 96 MG/DL (70-100); MB/CK RELATIVE INDEX 2.63 (< OR =4); NT-PRO BNP 167310 PG/ML (<125); POTASSIUM SERUM 6.1 MEQ/L (3.5-5.1); SODIUM LEVEL 131 MEQ/L (136-145); THYROXINE (T4) 7.7 UG/DL (4.5-12.0); TOTAL PROTEIN 7.5 GM/DL (6.4-8.2); TROPONIN I 0.04 NG/ML (< 0.10)
[2021-04-30] MEDS ORDERED: DOXAZOSIN MESYLATE 1 MG TAB PO SCH (21:00)
[2021-04-30] MEDS ORDERED: PATIROMER SORBITEX CALCIUM 8.4 GM POWDER PACKET (VELTASSA) PO ONE (21:15)
[2021-04-30] MEDS ORDERED: hydrALAZINE 20MG/ML 1ML VIAL (J0360 PER 20MG) IV ONE (21:15)
--- OUTSIDE RECORDS SUMMARY | 2021-04-30 22:17 | CCD ---
Author Author [facility] Organization [facility] Address Unknown Phone Unavailable Care Team Providers Care Cfo Name Role Phone VAL PATEL PA Unavailable [...] Unavailable Unavailable AMANDA, VAL PA Unavailable Unavailable AMNADA, VAL PA Unavailable Unavailable AMANDA, VAL PA [...] is protected by Article 27-F of the [facility] Public Health law. If you continue you may have access to information: Regarding HIV / AIDS; Provided by facilities licensed or operated by the [facility] Office of Mental Health; or Provided by the [facility] Office for People With Developmental Disabilities. If such information is present, then the following [facility] mandated warning applies: This information has been [...] law may result in a fine or alf sentence or both. A general authorization for the release of medical or other information is NOT sufficient authorization for further disc losure. Encounters Encounter Providers Location Date Indications Data Source(s ) Outpatient Attender: VAL ratliff 10/01/2020 11:05:00 AM EDT [facility] ([facility], [facility]) Medications Medication Brand Name Start Date Product [...] to casey Policy Casey Plan Information MEDICARE [id number] SP [id number] P24 HUMANA GOLD [id number] SP [id number] HUMANA GOLD [id number] SP [id number] MEDICARE A [id number] Self [id number] P24 MEDICARE A [id number] Self [id number] A MEDICARE [id number] SP [id number] A MEDICARE [id number] SP [id number] A MEDICARE [id number] SP [id number] MEDICAID [id number] SP [id number] MEDICAID M [id number] Self [id number] [place] [id number] SP [id number] D MEDICAID [id number] SP [id number] EMEDNY [id number] SP [id number] W [id number] S [id number] HUMANA GOLD [id number] SP [id number] MEDICARE C [id number] S [id number] P24 MEDICAID M [id number] S [id number] MEDICARE C [id number] S [id number] A MEDICARE P [id number] S [id number] M [id number] S [id number] A HUMANA GOLD [id number] SP [id number] Problems, Conditions, and Diagnoses No Information Surgeries/Procedures No Information Results ID Date Data Source [id number] 03/08/2021 04:24:00 PM EDT [facility] Name Value Range Interpretation Code Description Data Elizabeth rce(s) Supporting Document(s) Respiratory pathogens identified [Type] in Nasopharynx by Probe and target amplification method SARS-CoV-2 (COVID 19) [facility] This lab was ordered by [facility] a nd reported by [facility]. ID Date Data Source [id number] 03/08/2021 04:09:00 PM EDT [facility] Name Value Range Interpretation Code Description Data Elizabeth rce(s) Supporting Document(s) SARS COVID ANTIGEN NEGATIVE [facility] This lab was ordered by [facility] a nd reported by [facility]. ID Date Data Source [id number] 01/24/2021 04:09:00 PM EDT [facility] Name Value Range Interpretation Code Description Data Elizabeth rce(s) Supporting Document(s) SARS coronavirus 2 RdRp gene [Presence] in Respiratory specimen by YOBANI with probe detection Negative [facility] This lab was ordered by [facility] and re ported by [facility]. ID Date Data Source [id number] 10/01/2020 02:51:00 PM EDT [facility] Name Value Range Interpretation Code Description Data Elizabeth rce(s) Supporting Document(s) SARS-CoV-2 (COVID 19) NEGATIVE - SARS-CoV-2 (COVID19) [facility] This lab was ordered by [facility] a nd reported by [facility]. ID Date Data Source [id number] 10/01/2020 01:04:00 PM EDT [facility] Name Value Range Interpretation Code Description Data Elizabeth rce(s) Supporting Document(s) SARS COVID ANTIGEN NEGATIVE [facility] This lab was ordered by [facility] a nd reported by [facility]. Procedure Social History No Information Vital Signs ID Date Data Source UNK Name Value Range Interpretation Code Description Data Source(s) Oxygen saturation in Arterial blood by Pulse oximetry 96 % 96 % [facility] ([facility], [facility]) Body temperature 98.2 [degF] 98.2 [degF] [facility] ([facility]) Body weight 120.00 [lb_av] 120.00 [lb_av] [facility] ([facility]) Body height 64 [in_i] 64 [in_i] [facility] ([facility]) 5'4" Body mass index (BMI) [Ratio] 20.6 kg/m2 20.6 k g/m2 [facility] ([facility]) Respiratory rate 20 /min 20 /min [facility] ( [facility]) Systolic blood pressure 217 mm[Hg] 217 mm[Hg] [facility] ([facility]) Diastolic blood pressure 136 mm[Hg] 136 mm[Hg] [facility] ([facility]) Heart rate 103 /min 103 /min [facility] ([facility])
--- NOTE | 2021-04-30 22:56 | HPEPDOC ---
[facility] Medical History & Physical Date of Admission Apr 30, 2021 Date of Service: Apr 30, 2021 Attending Physician: LUANNE SELLERS MD History and Physical CHIEF COMPLAINT: SOB HISTORY OF PRESENT ILLNESS: Ruth Ann is a 35-year-old female who presents with shortness of breath, fever/chills that began this morning and have not improved or worsened throughout the day. She tells me he woke up this morning with shortness of breath and wheezing, and took Tylenol and went back to sleep. She slept through most of the day and woke again this evening with unimproved symptoms. Reports chest discomfort that radiates up both sides of her neck and into bilateral ears, which she describes as a "deep, throbbing" pain. She tells me this pain is only present with deep breaths. Of note, patient had COVID19 03/08 and tells me that she has had unresolved shortness of breath, wheezing, fatigue since then. She tells me current shortness of breath and wheezing is unchanged from when she had Covid. Reports intermittent dry cough. Reports history of ear infections as a child. Of note, patient has ESRD on HD T/R/Sat tells me she attends her dialysis sessions regularly. Denies urination 2/2 ESRD. She tells me she did not take her Veltassa yesterday, but is usually compliant with her renal medications. Reports noncompliance with HTN medications, but took her pills last evening. She tells me she has had difficulty obtaining her medications and needs to schedule an appointment with her PCP. In the ED, VSS significant for BP 206/128. CMP significant for Na+ 131, K+ 6.1, BUN 55, CR 8.38. BNP 349235. CBC, troponins, thyroid panel WNL. EKG significant for first-degree AV block (MN 216), no peaked T waves. CXR unremarkable, as noted below. PAST MEDICAL HISTORY: 1. ESRD 2/2 defect on HD T/R/Sat 2. HTN. 3. Asthma, allergyinduced 4. Primary/secondary hyperparathyroidism 5. Anxiety PAST SURGICAL HISTORY: 1. BMT, bilateral 2. Parathyroidectomy x2 (1/4 glands remaining). 3. AV fistula, right 4. AV fistula, left x2 SOCIAL HISTORY: Marital status: Single. Resides in: Apartment Tobacco use: Former smoker, quit 8 years ago, 10-year pack history ETOH: Former drinker, quit 12 years ago, used to drink "couple drinks/night on weekends" Illicit drug use: Current marijuana use in the form of edibles, "a couple gummies/day" Other relevant social factors: Stays with her mother and she is feeling ill, has been since recent Covid19 infxn FAMILY HISTORY: Heart disease, DM 2, renal cancer ALLERGIES: Please see below. REVIEW OF SYSTEMS: CONSTITUTIONAL: Reports fever/chills, fatigue. Denies poor oral intake HEENT: Reports dizziness, bilateral ear throbbing with deep breaths, sore throat. Denies dysphagia, rhinorrhea, nasal congestion, changes in vision, changes in hearing CARDIOVASCULAR: Reports chest discomfort with deep breaths. Denies palpitations, chest pain (sharp) RESPIRATORY: Reports shortness of breath, intermittent dry cough, wheezing. GASTROINTESTINAL: Denies abdominal pain, nausea/vomiting, constipation, diarrhea. GENITOURINARY: Denies urination 2/2 ESRD. MUSCULOSKELETAL: Denies muscle weakness/aches. NEUROLOGICAL: Denies changes in sensation, numbness/tingling. HOME MEDICATIONS: Please see below. PHYSICAL EXAMINATION: VITAL SIGNS: Temperature 97.3, pulse 93, respiratory rate 18, blood pressure 189/118, pulse oximetry 95% on room air. GENERAL APPEARANCE: Alert, awake, sitting up in stretcher, NAD. HEENT: NC/AT, EOMI, nares patent, moist mucous membranes, poor dentition, has her own teeth, enlarged bilateral tonsils without exudate/erythema. CARDIOVASCULAR: Normal heart sounds, RRR, diastolic heart murmur. LUNGS: CTA bilaterally, no WRR, no accessory muscles use. ABDOMEN: Soft, nontender, nondistended, normal bowel sounds MUSCULOSKELETAL: Normal ROM, 5/5 strength EXTREMITIES: No edema/cyanosis, 2+ PT/DP pulses palpated bilaterally NEUROLOGICAL: CN III-XII intact, sensation intact PSYCHIATRIC: AOx4, no depressed/anxious mood LABORATORY DATA: See below. IMAGING: CXR (04/30) Global cardiomegaly and persistent mild interstitial edema. MICROBIOLOGY: Please see below. ASSESSMENT/PLAN: Ruth Ann is a 35-year-old female PMH ESRD on HD T/R/Sat, HTN noncompliant with medications who presents with worsening SOB, fever/chills, was found to have BP 189/118, K+ 6.1, BNP 968475, concerning for HTN urgency, hyperkalemia. #Hyperkalemia, asymptomatic, 2/2 ESRD on HD T/R/Sat and noncompliance with medication In ED, K+ 6.1, EKG without peaked T waves Patient tells me she is to take Veltassa on non-HD days. She tells me she did not take it today, but did take it yesterday. Patient received 1 dose of home Veltassa in ED. On telemetry Continue home Fosrenol 1000 mg, Cardura 1 mg nightly, Veltassa 8.4g on non-HD days Continue to monitor daily labs Patient is to have HD tomorrow, as per schedule Nephrology (Dr. Charmaine Levi) on consult, who is familiar with the patient, appreciate recommendations. #HTN urgency, asymptomatic BP 189/118 on evaluation In ED, patient received Metoprolol 100mg, clonidine 0.1 mg Start IV hydralazine 10mg as needed (SBP> 180) Continue home metoprolol 200 mg, clonidine 0.1 mg, amlodipine 10 mg, Telmisartan 80 mg On telemetry Continue to monitor BP #SOB In ED, BNP [id number], Resp panel negative. SPO2 95% on RA on evaluation. Patient euvolemic and did not appear fluid overloaded. Patient received Combivent in ED and reports resolved symptoms. #Asthma, allergyinduced In ED, patient received Combivent with resolved symptoms. Continue home albuterol inh #Anxiety, asymptomatic, unmedicated #DVT prophylaxis Start Heparin SC twice daily DIET: Renal ACTIVITY: OOB ad qasim. DISPO: Pending clinical improvement, expect <2 midnights CODE STATUS: Full code Vital Signs Vital Signs Date Time Temp Pulse Resp B/P (MAP) Pulse Ox O2 Delivery O2 Flow Rate FiO2 04/30/21 22:09 189/128 04/30/21 22:00 89 18 98 Room Air 04/30/21 19:47 97.3 Laboratory Data Labs 24H Laboratory Tests 2 04/30/21 19:48: Immature Granulocyte % (Auto) 0.6, Neutrophils (%) (Auto) 67.4H, Lymphocytes (%) (Auto) 20.2L, Monocytes (%) (Auto) 7.9, Eosinophils (%) (Auto) 2.6, Basophils (% ) (Auto) 1.3H, Neutrophils # (Auto) 5.7, Lymphocytes # (Auto) 1.7, Monocytes # (Auto) 0.7, Eosinophils # (Auto) 0.2, Basophils # (Auto) 0.1, Nucleated Red Blood Cells % (auto) 0.0, Anion Gap 13, Glomerular Filtration Rate 5.8L, Calcium Level 9.3, Total Bilirubin 1.9H, Direct Bilirubin 1.0H, Aspartate Amino Transf (AST/SGOT) 25, Alanine Aminotransferase (ALT/SGPT) 31, Alkaline Phosphatase 181H, Total Creatine Kinase 38, Creatine Kinase MB < 1.0, Creatine Kinase MB Relative Index 2.63, Troponin I 0.04, PX-Qkc-N-Type Natriuretic Peptide 234757G, Total Protein 7.5, Albumin 3.3, Albumin/Globulin Ratio 0.8L, Thyroid Stimulating Hormone (TSH) 2.130, Thyroxine (T4) 7.7 CBC/BMP Laboratory Tests 04/30/21 19:48 Microbiology Microbiology 04/30/21 Respiratory Virus Panel (PCR) ([facility]) - Final, Complete Home Medications Scheduled Amlodipine Besylate (Amlodipine Besylate) 10 Mg Tab, 10 MG PO DAILY Clonidine HCl (Clonidine HCl) 0.1 Mg Tablet, 0.1 MG PO TID Doxazosin Mesylate (Doxazosin Mesylate) 1 Mg Tablet, 1 MG PO QHS Ergocalciferol (Vitamin D2) (Vitamin D2) 50,000 Units Cap, 50,000 UNITS PO QWEEK MONDAYS Isosorbide Mononitrate (Isosorbide Mononitrate ER) 60 Mg Tab.er.24h, 60 MG PO BID Lanthanum Carbonate (Fosrenol) 1,000 Mg Chw, 1,000 MG PO WM Metoprolol Succinate (Metoprolol Succinate) 200 Mg Tab.er.24h, 200 MG PO DAILY Patiromer Calcium Sorbitex (Veltassa) 8.4 Gm Pow, 8.4 GM PO 4XWK TAKES ON FRIDAY, FRIDAY, FRIDAY AND FRIDAY Phenoxybenzamine HCl (Dibenzyline) 10 Mg Capsule, 20 MG PO DAILY Phenoxybenzamine HCl (Dibenzyline) 10 Mg Capsule, 10 MG PO QHS Telmisartan (Telmisartan) 80 Mg Tablet, 80 MG PO DAILY Scheduled PRN Acetaminophen (Tylenol Extra Strength) 500 Mg Tablet, 1,000 MG PO Q6H PRN for HEADACHE Albuterol Sulfate (Proair Hfa) 8.5 Gm Hfa.aer.ad, 2 PUFF INH Q4H PRN for SHORTNESS OF BREATH Allergies Coded Allergies: Sulfa (Sulfonamide Antibiotics) (Verified Allergy, Mild, 04/30/21) rash ceftriaxone (Unverified Allergy, Unknown, 04/30/21) erythromycin base (Verified Allergy, Unknown, 04/30/21) vancomycin (Verified Adverse Reaction, Intermediate, 04/30/21) whole body red Penicillins (Verified Adverse Reaction, Mild, 04/30/21) vomit TAPE (Verified Adverse Reaction, Mild, PLASTIC TAPE-SKIN IRRITATION AND BLISTERS, 04/30/21) alcohol (Verified Adverse Reaction, Mild, 04/30/21) wipes-blisters GME ATTESTATION GME ATTESTATION My faculty preceptor for this patient encounter was physically present during the encounter and was fully available. All aspects of the patient interview, examination, medical decision making process, and medical care plan development were reviewed and approved by the faculty preceptor. The faculty preceptor is aware and concurs with the plan as stated in the body of this note and will attest to such by his/her cosignature. ATTENDING NOTE IMarielena, have independently examined this patient and performed my own physical exam, as well as reviewed the documentation and edited where necessary. I have discussed in detail with the resident / student the findings and plan of treatment as documented by the resident / student. I agree with their findings and treatment plan except for any changes as outlined below. HTN urgency possibly causing some of her chest discomfort and sob. Symptoms improved after improvement in her BP. Recheck troponin in the morning. Fouzia Hou DO Apr 30, 2021 22:56 LUANNE SELLERS MD May 01, 2021 05:35
[2021-04-30] MEDS ORDERED: ERGO500029 PO (22:58)
[2021-04-30] MEDS ORDERED: PROAAER10 INH (22:58)
[2021-04-30] MEDS ORDERED: ACET-897 PO (22:58)
[2021-04-30] MEDS ORDERED: HOME MED LIST COMPLETE! XX SCH (23:00)
[2021-04-30] MEDS ORDERED: ALBUTEROL 90 MCG/ACT 8GM HFA INHALER INH PRN (23:10)
[2021-04-30] MEDS ORDERED: ACETAMINOPHEN 500 MG TAB PO PRN (23:10)
[2021-04-30] MEDS ORDERED: hydrALAZINE 20MG/ML 1ML VIAL (J0360 PER 20MG) IV PRN (23:35)
[2021-05-01] MEDS: ISOSORBIDE MON. (IMDUR) 60 MG XR TAB PO SCH ×2 (00:24→07:58)
[2021-05-01 01:08] VITALS: BP 178/114
[2021-05-01 02:29] VITALS: BP 178/114
[2021-05-01 04:25] VITALS: BP 170/100
[2021-05-01 05:27] LABS: HEMOGLOBIN 12.1 g/dl (12.0-15.5); MEAN CORPUSCULAR HEMOGLOBIN 29.8 pg (27.0-33.0); MEAN CORPUSCULAR HGB CONC 33.6 g/dl (32.0-36.5); MEAN CORPUSCULAR VOLUME 88.7 fl (80.0-96.0); PLATELET COUNT, AUTOMATED 120 10^3/uL (150-450); RED BLOOD COUNT 4.06 10^6/uL (4.00-5.40)
[2021-05-01 06:23] LABS: CREATININE FOR GFR 8.76 MG/DL (0.55-1.30); GLOMERULAR FILTRATION RATE 5.6 (>60); POTASSIUM SERUM 5.3 MEQ/L (3.5-5.1); TROPONIN I 0.04 NG/ML (< 0.10)
--- NOTE | 2021-05-01 06:41 | ECGEPIP ---
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
[2021-05-01] MEDS ORDERED: SODIUM CHLORIDE 0.9% 1000ML IV PRN (07:25)
[2021-05-01] MEDS ORDERED: LIDOCAINE 1% SDV 5ML VIAL SC PRN (07:25)
[2021-05-01] MEDS: LANTHANUM CARBONATE 500 MG CHEW TABLET PO SCH ×2 (07:56→12:30)
[2021-05-01] MEDS: cloNIDine 0.1MG TABLET PO SCH ×2 (07:59→16:19)
[2021-05-01 08:00] VITALS: BP 190/108
[2021-05-01] MEDS ORDERED: METOPROLOL SUCC (TopROL XL) 100MG *XL* TAB PO SCH (09:00)
[2021-05-01] MEDS ORDERED: HEPARIN SOD (PORCINE) 5000UNITS/ML 1ML VIAL/SYRINGE SC SCH (09:00)
[2021-05-01] MEDS ORDERED: TELMISARTAN 20 MG TAB PO SCH (09:00)
--- NOTE | 2021-05-01 12:05 | IPNPDOC ---
Text Note Date of Service The patient was seen on 05/01/21. NOTE Subjective: Patient is a 35-year-old female who presented to the emergency de partment shortness of breath that began the morning of her admission that and not improved. Patient has a history of COVID-19 back in February 2021 and has had unresolved shortness of breath, wheezing, and fatigue since then. She states that the wheezing and shortness of breath are unchanged from when she had Covid. She reports an intermittent dry cough. She has a history of ear infections as a child. Patient was found to have very elevated blood pressures in the emergency department. Patient was also found to be hyperkalemic and states that she did not take her Veltassa yesterday which is why she is hyperkalemic. Patient is supposed to take her Veltassa on days where she does not have dialysis. Patient states that she does not miss dialysis and is due for dialysis today. Review of systems: General: Patient denies fevers HEENT: Patient denies headaches Cardiovascular: Patient denies chest pain Respiratory: Patient reports wheezing, shortness of breath, nonproductive cough as above GI: Patient denies abdominal pain, nausea, vomiting, diarrhea : Patient denies increased frequency or pain with urination Extremities: Patient denies swelling or pain in extremities Neurological: Patient denies numbness or tingling in legs Physical exam: Vitals: See below General: Alert and oriented female patient was sitting up in bed when I walked in. Patient did not appear to be in any acute distress. HEENT: Normocephalic, atraumatic, moist mucous membranes. Neck: No lymphadenopathy or thyromegaly Cardiac: Regular rate and rhythm, no murmurs, normal S1, normal S2 Pulm: Scattered rhonchi that cleared with coughing throughout the lung phillips. Abd: Nondistended, nontender to palpation, normal bowel sounds Ext: No edema bilateral lower extremities Labs: See below Imaging: No new imaging is been performed Assessment/plan: 35-year-old female with past medical history of ESRD on hemodialysis on a Friday, Friday schedule, hypertension noncompliant with medications presents with worsening short of breath, fever/chills found to have a BP of 189/118, potassium 6.1, BNP 167,310, concerning for hypertensive urgency and hyperkalemia. 1. Hyperkalemia, asymptomatic secondary to ESRD with noncompliance with medications. Potassium has improved with 1 dose of home Veltassa in the emergency department. Patient will be dialyzed today. We will continue to monitor. I appreciate Dr. Levi's help treating the patient. 2. Asymptomatic severe hypertension. Patient's blood pressures been elevated. We will continue to recheck these after dialysis. Continue home medications. 3. Shortness of breath. Respiratory panel negative. Could be status post COVID-19 infection in combination with the patient's asthma. Patient's BNP was also greatly elevated although she does appear euvolemic. We will reassess after dialysis today. 4. Asthma, allergy induced. Received Combivent and this resolved her symptoms. Continue home medications. 5. Anxiety. Asymptomatic, unmedicated. 6. End-stage renal disease. Patient is on a Friday, , Friday [facility] [place] [facility]. Patient received dialysis today. I appreciate Dr. Levi's help treating patient. DVT Prophylaxis: Heparin Disposition: Pending clinical improvement, possible discharge tomorrow. VS,Silvia, I+O VS, Dayamie, I+O Laboratory Tests 04/30/21 19:48 05/01/21 04:57 Vital Signs Date Time Temp Pulse Resp B/P (MAP) Pulse Ox O2 Delivery O2 Flow Rate FiO2 05/01/21 08:00 97.4 71 22 190/108 (135) 96 Room Air RAJ POND DO May 01, 2021 12:05
[2021-05-01 14:00] VITALS: BP 169/88
--- NOTE | 2021-05-01 15:38 | CR ---
NEPHROLOGY CONSULTATION DATE: 05/01/2021 REASON FOR CONSULTATION: Denis Altamirano M.D. REASON FOR CONSULT: To assist in the management of shortness of breath and hyperkalemia in this lady with end-stage renal disease. HISTORY OF PRESENT ILLNESS: Ms. Raya is a 35-year-old female with known history of hypertension, end-stage renal disease and noncompliance. She is generally noncompliant with medications and fluid volume. She gains excessive amount of fluid between dialysis treatments and her blood pressure usually about 200 mmHg. She presented to the Emergency Room with shortness of breath. She does have history of COVID pneumonia a few weeks ago and has recovered. Her blood pressure was also quite high 206/128 on arrival. She was treated with medications and her hyperkalemia was also treated with Veltassa and Kayexalate. I have seen her this morning. PAST MEDICAL HISTORY: Significant for: 1. Hypertension; usually uncontrolled. 2. End-stage renal disease. 3. Asthma. 4. Secondary hyperparathyroidism. 5. Anxiety. 6. Noncompliance. PAST SURGICAL HISTORY: Significant for: 1. Partial parathyroidectomy. 2. AV fistula creation in right arm and then left arm. FAMILY HISTORY: Significant for hypertension, diabetes and chronic kidney disease. PERSONAL AND SOCIAL HISTORY: Patient is single, lives by herself. She is a former smoker. She reports no alcohol or drug use. ALLERGIES: She has allergy to sulfa, Ceftriaxone, Erythromycin, Vancomycin and penicillin. MEDICATIONS: Her home medications include: 1. Amlodipine 10 mg daily. 2. Clonidine 0.1 mg t.i.d. 3. Doxazosin 1 mg at bedtime. 4. Vitamin D 50,000 units once a week. 5. Isosorbide 60 mg b.i.d. 6. Fosrenol 1,000 mg with meals. 7. Metoprolol Succinate 200 mg daily. 8. Veltassa 8.4 grams four times a week. 9. Dibenzyline 10 mg at bedtime and 20 mg in the a.m. 10.Telmisartan 80 mg daily. 11.Tylenol as needed. 12.Albuterol as needed. REVIEW OF SYSTEMS: Constitutional: She denies any fevers or chills. She denies any headache at present. Ears, Nose and Throat: Unremarkable. Cardiovascular System: Significant for shortness of breath. She denies any chest pain. Respiratory System: Negative for cough or hemoptysis. She does have a history of smoking in the past and COPD. GI System: Negative for vomiting or diarrhea. GY System: Negative for dysuria or hematuria. No known history of kidney stones. Musculoskeletal System: Negative for leg edema. She denies any significant arthritis. Endocrine System: Significant for secondary hyperparathyroidism, but no diabetes or thyroid problems. Hematological System: Significant for anemia of chronic kidney disease. Psychosocial System: Negative for depression, but does have anxiety and noncompliance. PHYSICAL EXAMINATION: VITALS: Temperature 98 degrees Fahrenheit, heart rate 68 per minute, respiratory rate 20 per minute, blood pressure 170/100 mmHg and oxygen saturation 97% on room air. HEENT: Head is atraumatic. Neck supple and JVD is about 9 to 10 cm above sternal angle. There is no oral thrush or ulcers. Her forehead is prominent. Pupils are equal and reactive to light and sclerae is anicteric. HEART: Sounds are regular. LUNGS: Clear to auscultation. ABDOMEN: Soft and nontender and bowel sounds are normal. EXTREMITIES: Without any cyanosis or clubbing. Right arm AV fistula is patent. NEUROLOGIC: She is awake, alert and oriented x3. LABORATORY DATA: WBC 7.0, hemoglobin 12, hematocrit 36, platelets 120,000. Sodium 131, potassium 6.1; a repeat potassium is now 5.3. BUN 59 and creatinine 8.76. Calcium 10.0. BNP level was 167,310. TSH level 2.13. PROBLEMS: 1. Shortness of breath: Most likely this is a combination of volume overload and scarring from recent COVID pneumonia. Will try to remove about 3-4 liters of fluid with dialysis and see how she does. She is not likely to respond to diuretics due to end-stage renal disease for several years. 2. Hyperkalemia: It is related to noncompliance with dietary restrictions. Unfortunately, she has been quite noncompliant. She has already been given Veltassa and Kayexalate with improvement in potassium level. This will be further corrected with dialysis later today. 3. End-stage renal disease: Patient has known history of end-stage renal disease and has been on maintenance hemodialysis on Friday, and Friday schedule. She will be dialyzed today and that will correct most of her electrolyte problems. 4. Uncontrolled hypertension: Partly this is related to volume overload and partly this is related to noncompliance with medications. She unfortunately has chronic noncompliance with medications. I would recommend to resume all her chronic home medications and we will try to correct her volume status, which will help to improve her blood pressure control. Thank you for involving me in the care of Ms. Raya. I will follow her along with you.
[2021-05-01 15:56] LABS: CALCIUM LEVEL 9.7 MG/DL (8.5-10.1); CREATININE FOR GFR 5.1 MG/DL (0.55-1.30); GLOMERULAR FILTRATION RATE 10.4 (>60); POTASSIUM SERUM 3.9 MEQ/L (3.5-5.1)
[2021-05-01 16:00] VITALS: BP 168/87
[2021-05-01] MEDS ORDERED: METO200T28 PO (16:28)
[2021-05-01] MEDS ORDERED: CLON-412 PO (16:28)
[2021-05-01] MEDS ORDERED: VELT1POW PO (16:28)
[2021-05-01] MEDS ORDERED: ISOS1TAB36 PO (16:28)
[2021-05-01] MEDS ORDERED: AMLO1TAB25 PO (16:28)
[2021-05-01] MEDS ORDERED: TELM1TAB37 PO (16:28)
--- NOTE | 2021-05-01 17:51 | DS.PDOC ---
Discharge Summary General Date of Admission Apr 30, 2021 at 22:04 Date of Discharge 05/01/2021 Attending Physician: RAJ POND DO Specialist/Consultants Involve: GERARD GAY MD @ Discharge Summary PROCEDURES PERFORMED DURING STAY: None. ADMITTING DIAGNOSES: 1. Hyperkalemia. 2. Hypertensive urgency 3. ESRD 4. Shortness of breath 5. Asthma 6. Anxiety DISCHARGE DIAGNOSES: 1. Hyperkalemia, resolved. 2. Asymptomatic severe hypertension, improved 3. Shortness of breath, improved 4. Asthma 5. Anxiety 6. End-stage renal disease COMPLICATIONS/CHIEF COMPLAINT: Fluid Overload,Hyperkalemia,Hypertensive Urgency. HISTORY OF PRESENT ILLNESS: Patient is a 35-year-old female presents to the hospital shortness of breath, fevers and chills that began in the morning. These have not improved or worsened throughout the day. Patient woke up feeling short of breath and wheezing and took Tylenol back to sleep. Slept through most of the day and woke up again this evening with unimproved symptoms. Patient reported chest discomfort that radiates to both sides of her neck into her bilateral ears which she describes as a deep throbbing pain. Patient tells the admitting provider that this pain is only present with deep breaths. Patient had COVID-19 in February and tells the admitting provider these unresolved shortness of breath, wheezing, fatigue since then. Patient tells the admitting provider that her shortness of breath and wheezing are unchanged since when she had Covid. She has an intermittent dry cough. Reports there is a history and ear infection as a kid. Of note patient has ESRD and is dialyzed on a Friday, , Friday schedule and tells me that she attends her dialysis regularly. She denies urination secondary to ESRD. She did not take her Veltassa yesterday but is usually compliant with her renal medications. She reports noncompliance with her hypertension medications but did take her pills yesterday evening. She tells me that she has difficulty obtaining her medications and needs to schedule appoint with her PCP. In the ED, vital signs are significant for a blood pressure of 206/128 and patient was found to be hyperkalemic without any EKG findings. HOSPITAL COURSE: Patient was given a dose of Veltassa in the emergency department which did improve the patient potassium. Patient received her blood pressure medications and received dialysis and had 3 to 4 L taken off. Patient's blood pressure did improve. Repeat chemistry showed that the patient's potassium and electrolytes have returned to the normal limits. Patient states that her shortness of breath was improved and she is feeling much better than she was when she was admitted. Patient was asking about the possibility of going home. I did send in a 30-day supply the patient's blood pressure medication as she states that she did not have these pills at home. Patient does have enough of her Veltassa to continue to take. I encouraged the patient to continue to take her blood pressure medications as well as follow her blood pressure closely and follow-up with both her primary care provider and nephrology. Patient was doing well and was deemed ready for discharge on 05/01/2021. Patient was discharged home. DISCHARGE MEDICATIONS: Please see below. ALLERGIES: Please see below. PHYSICAL EXAMINATION ON DISCHARGE: VITAL SIGNS: Please see below. General: Alert and oriented female patient who was sitting up in bed when I walked in. Patient not appear to be in any acute distress. HEENT: Normocephalic, atraumatic, moist mucous membranes. Neck: No lymphadenopathy or thyromegaly Cardiac: Regular rate and rhythm, no murmurs, normal S1, normal S2 Pulm: Clear to auscultation bilaterally. No wheezes, rhonchi, rales Abd: Nondistended, nontender to palpation, normal bowel sounds Ext: No edema bilateral lower extremities LABORATORY DATA: Please see below. IMAGING: Chest x-ray performed on 04/30/2021 was reported to show global cardiomegaly and persistent mild interstitial edema. PROGNOSIS: Fair ACTIVITY: As tolerated. DIET: Renal diet DISCHARGE PLAN: Discharge home DISPOSITION: 01 Home, Self-Care. DISCHARGE INSTRUCTIONS: 1. Follow-up with primary care provider within 3 to 5 days discharge. 2. Follow-up with nephrology as scheduled 3. Follow-up with dialysis on a regular schedule of your Friday, , Friday 4. Continue to take home medications as prescribed 5. Return the emergency department if symptoms worsen ITEMS TO FOLLOWUP ON ON OUTPATIENT: 1. Follow-up blood pressure medications. DISCHARGE CONDITION: Stable. TIME SPENT ON DISCHARGE: 35 minutes. Vital Signs/I&Os Vital Signs Date Time Temp Pulse Resp B/P (MAP) Pulse Ox O2 Delivery O2 Flow Rate FiO2 05/01/21 16:00 98.1 67 20 168/87 (114) 100 Room Air Laboratory Data Labs 24H Laboratory Tests 2 04/30/21 19:48: Immature Granulocyte % (Auto) 0.6, Neutrophils (%) (Auto) 67.4H, Lymphocytes (%) (Auto) 20.2L, Monocytes (%) (Auto) 7.9, Eosinophils (%) (Auto) 2.6, Basophils (%) (Auto) 1.3H, Neutrophils # (Auto) 5.7, Lymphocytes # (Auto) 1.7, Monocytes # (Auto) 0.7, Eosinophils # (Auto) 0.2, Basophils # (Auto) 0.1, Nucleated Red Blood Cells % (auto) 0.0, Anion Gap 13, Glomerular Filtration Rate 5.8L, Calcium Level 9.3, Total Bilirubin 1.9H, Direct Bilirubin 1.0H, Aspartate Amino Transf (AST/SGOT) 25, Alanine Aminotransferase (ALT/SGPT) 31, Alkaline Phosphatase 181H, Total Creatine Kinase 38, Creatine Kinase MB < 1.0, Creatine Kinase MB Relative Index 2.63, Troponin I 0.04, ML-Eme-T-Type Natriuretic Peptide [id number], Total Protein 7.5, Albumin 3.3, Albumin/Globulin Ratio 0.8L, Thyroid Stimulating Hormone (TSH) 2.130, Thyroxine (T4) 7.7 05/01/21 04:57: Nucleated Red Blood Cells % (auto) 0.0, Anion Gap 13, Glomerular Filtration Rate 5.6L, Calcium Level 10.0, Troponin I 0.04 05/01/21 14:55: Anion Gap 10, Glomerular Filtration Rate 10.4L, Calcium Level 9.7 CBC/BMP Laboratory Tests 04/30/21 19:48 05/01/21 04:57 05/01/21 14:55 Microbiology Microbiology 04/30/21 Respiratory Virus Panel (PCR) ([facility]) - Final, Complete Discharge Medications Scheduled Amlodipine Besylate (Amlodipine Besylate) 10 Mg Tab, 10 MG PO DAILY Clonidine HCl (Clonidine HCl) 0.1 Mg Tablet, 0.1 MG PO TID Doxazosin Mesylate (Doxazosin Mesylate) 1 Mg Tablet, 1 MG PO QHS, (Reported) Ergocalciferol (Vitamin D2) (Vitamin D2) 50,000 Units Cap, 50,000 UNITS PO QWEEK, (Reported) MONDAYS Isosorbide Mononitrate (Isosorbide Mononitrate ER) 60 Mg Tab.er.24h, 60 MG PO BID Lanthanum Carbonate (Fosrenol) 1,000 Mg Chw, 1,000 MG PO WM, (Reported) Metoprolol Succinate (Metoprolol Succinate) 200 Mg Tab.er.24h, 200 MG PO DAILY Patiromer Calcium Sorbitex (Veltassa) 8.4 Gm Pow, 8.4 GM PO 4XWK TAKES ON FRIDAY, FRIDAY, FRIDAY AND FRIDAY Phenoxybenzamine HCl (Dibenzyline) 10 Mg Capsule, 20 MG PO DAILY, (Reported) Phenoxybenzamine HCl (Dibenzyline) 10 Mg Capsule, 10 MG PO QHS, (Reported) Telmisartan (Telmisartan) 80 Mg Tablet, 80 MG PO DAILY Scheduled PRN Acetaminophen (Tylenol Extra Strength) 500 Mg Tablet, 1,000 MG PO Q6H PRN for HEADACHE, (Reported) Albuterol Sulfate (Proair Hfa) 8.5 Gm Hfa.aer.ad, 2 PUFF INH Q4H PRN for SHORTNESS OF BREATH, (Reported) Allergies Coded Allergies: Sulfa (Sulfonamide Antibiotics) (Verified Allergy, Mild, 04/30/21) rash ceftriaxone (Unverified Allergy, Unknown, 04/30/21) erythromycin base (Verified Allergy, Unknown, 04/30/21) vancomycin (Verified Adverse Reaction, Intermediate, 04/30/21) whole body red Penicillins (Verified Adverse Reaction, Mild, 04/30/21) vomit TAPE (Verified Adverse Reaction, Mild, PLASTIC TAPE-SKIN IRRITATION AND BLISTERS, 04/30/21) alcohol (Verified Adverse Reaction, Mild, 04/30/21) wipes-blisters RAJ POND DO May 01, 2021 17:51
[2021-05-02] MEDS ORDERED: PATIROMER SORBITEX CALCIUM 8.4 GM POWDER PACKET (VELTASSA) PO SCH (09:00)
== END 2021-05-01 17:28 | disposition home or self-care (01) | DRG 304 ==
LOC: M ED 17:14 → M ED INP 22:04 → M PCU 05-01 00:57
PROVIDERS: ADMIT Family Medicine; ATTEND Family Medicine
PROC: 5A1D70Z Performance of Urinary Filtration, Intermittent, Less than 6 Hours Per Day (ICD-10-PCS; principal; 2021-04-30)
DX: I16.0 Hypertensive urgency (principal); N18.6 End stage renal disease; N25.81 Secondary hyperparathyroidism of renal origin; J45.909 Unspecified asthma, uncomplicated; E87.5 Hyperkalemia; F41.9 Anxiety disorder, unspecified; I12.0 Hypertensive chronic kidney disease with stage 5 chronic kidney disease or end stage renal disease; Z79.899 Other long term (current) drug therapy; Z88.2 Allergy status to sulfonamides; Z88.0 Allergy status to penicillin; Z88.8 Allergy status to other drugs, medicaments and biological substances; Z87.891 Personal history of nicotine dependence; Z91.14 Patient's other noncompliance with medication regimen; J44.9 Chronic obstructive pulmonary disease, unspecified; D63.1 Anemia in chronic kidney disease

== ENCOUNTER 2021-08-30 05:03 | Inpatient (IN) | payer OTHER, MEDICAID ==
[~2021-08-30] VITALS: Ht 162.6 cm; Wt 57.9 kg
[~2021-08-30 05:03] MED LIST changes: +ACET-897 PO; +ERGO500029 PO; +PROAAER10 INH
[2021-08-30] MEDS ORDERED: MORPHINE 4 MG/ML 1ML VIAL/SYRINGE (J2270) IV ONE (05:35)
[2021-08-30] MEDS ORDERED: ONDANSETRON 4MG/2ML VIAL IV ONE (05:35)
[2021-08-30] MEDS ORDERED: hydrALAZINE 20MG/ML 1ML VIAL (J0360 PER 20MG) IV ONE (06:05)
[2021-08-30 06:07] LABS: BASO # 0.1 10^3/uL (0.0-0.2); BASO % 1.2 % (0.0-1.0); EOS # 0.4 10^3/uL (0.0-0.5); EOS % 4.6 % (0.0-3.0); HEMATOCRIT 34.2 % (36.0-47.0); HEMOGLOBIN 11.3 g/dl (12.0-15.5); LYMPH # 1.6 10^3/uL (1.5-5.0); LYMPH % 18.2 % (24.0-44.0); MEAN CORPUSCULAR HEMOGLOBIN 29.2 pg (27.0-33.0); MEAN CORPUSCULAR VOLUME 88.4 fl (80.0-96.0); MONO # 0.5 10^3/uL (0.0-0.8); MONO % 5.4 % (2.0-8.0); NEUTROPHILS # 6.1 10^3/uL (1.5-8.5); NEUTROPHILS % 70.3 % (36.0-66.0); PLATELET COUNT, AUTOMATED 146 10^3/uL (150-450); RED BLOOD COUNT 3.87 10^6/uL (4.00-5.40); WHITE BLOOD COUNT 8.6 10^3/uL (4.0-10.0)
[2021-08-30 06:32] LABS: ALBUMIN 3.1 GM/DL (3.2-5.2); BILIRUBIN,TOTAL 1.4 MG/DL (0.2-1.0); CALCIUM LEVEL 8.9 MG/DL (8.5-10.1); CREATININE FOR GFR 7.63 MG/DL (0.55-1.30); GLOMERULAR FILTRATION RATE 6.5 (>60); TOTAL PROTEIN 7.7 GM/DL (6.4-8.2)
[2021-08-30] MEDS ORDERED: METOPROLOL SUCC (TopROL XL) 100MG *XL* TAB PO ONE (06:40)
[2021-08-30] MEDS ORDERED: MOM 30ML SUSPENSION UDC PO PRN (07:35)
[2021-08-30 07:57] LABS: RSV AMPLIFICATION NEGATIVE (NEGATIVE)
[2021-08-30] MEDS ORDERED: SODIUM CHLORIDE 0.9% 1000ML IV PRN (08:50)
[2021-08-30] MEDS ORDERED: LIDOCAINE 1% SDV 5ML VIAL SC PRN (08:50)
[2021-08-30] MEDS ORDERED: TELMISARTAN 20 MG TAB PO SCH (09:00)
[2021-08-30] MEDS ORDERED: cloNIDine 0.1MG TABLET PO ONE (09:00)
[2021-08-30] MEDS ORDERED: METOPROLOL SUCC (TopROL XL) 100MG *XL* TAB PO SCH (09:00)
[2021-08-30] MEDS: HEPARIN SOD (PORCINE) 5000UNITS/ML 1ML VIAL/SYRINGE SC SCH ×2 (09:00→20:20)
[2021-08-30] MEDS: ISOSORBIDE MON. (IMDUR) 60 MG XR TAB PO SCH ×2 (09:00→20:19)
[2021-08-30 09:10] VITALS: BP 192/119
[2021-08-30 11:23] LABS: APPEARANCE, BODY FLUID HAZY (CLEAR); PERITONEAL FL COLOR AMBER (COLORLESS); SOURCE, BODY FLUID PERITONEAL
[2021-08-30 11:24] LABS: SPEC. GRAVITY BODY FLUIDS 1.029 (NOT ESTABLISHED)
[2021-08-30 11:59] LABS: SOURCE, BODY FLUID ALBUMIN PERITONEAL; SOURCE, BODY FLUID GLUCOSE PERITONEAL; SOURCE, BODY FLUID TOT PROTEIN PERITONEAL; TOTAL PROTEIN, BODY FLUID 4.7 G/DL (NOT ESTABLISHED)
[2021-08-30] MEDS ORDERED: AMLO10TA PO (14:47)
[2021-08-30] MEDS ORDERED: CLONI1TA PO (14:47)
[2021-08-30] MEDS ORDERED: TELM1TAB37 PO (14:48)
[2021-08-30] MEDS ORDERED: HOME MED LIST COMPLETE! XX SCH (14:50)
[2021-08-30] MEDS: ACETAMINOPHEN TAB 650MG DOSE (2X325MG) PO PRN (15:59)
[2021-08-30] MEDS: cloNIDine 0.1MG TABLET PO SCH ×2 (15:59→20:19)
[2021-08-30 16:00] VITALS: BP 186/102
[2021-08-30 16:24] VITALS: BP 180/99
[2021-08-30] MEDS ORDERED: ALBUTEROL 90 MCG/ACT 8GM HFA INHALER INH PRN (16:45)
[2021-08-30 18:00] VITALS: BP 158/93
[2021-08-30 18:30] VITALS: BP 144/88
[2021-08-30] MEDS: TELMISARTAN 20 MG TAB PO SCH (18:38)
[2021-08-30] MEDS: LANTHANUM CARBONATE 500 MG CHEW TABLET PO SCH (18:38)
[2021-08-30 20:00] VITALS: BP 144/78
[2021-08-30] MEDS ORDERED: DOXAZOSIN MESYLATE 1 MG TAB PO SCH (21:00)
[2021-08-31] VITALS (7 sets, daily range): BP systolic 140–173; BP diastolic 80–97
[2021-08-31 05:59] LABS: HEMATOCRIT 32.4 % (36.0-47.0); HEMOGLOBIN 10.7 g/dl (12.0-15.5); MEAN CORPUSCULAR HEMOGLOBIN 29.5 pg (27.0-33.0); MEAN CORPUSCULAR VOLUME 89.3 fl (80.0-96.0); PLATELET COUNT, AUTOMATED 131 10^3/uL (150-450); RED BLOOD COUNT 3.63 10^6/uL (4.00-5.40); WHITE BLOOD COUNT 7.4 10^3/uL (4.0-10.0)
[2021-08-31 06:34] LABS: ALBUMIN 2.5 GM/DL (3.2-5.2); BILIRUBIN,TOTAL 1.3 MG/DL (0.2-1.0); CALCIUM LEVEL 8.6 MG/DL (8.5-10.1); CREATININE FOR GFR 6.18 MG/DL (0.55-1.30); GLOMERULAR FILTRATION RATE 8.3 (>60); MAGNESIUM LEVEL 1.9 MG/DL (1.8-2.4); TOTAL PROTEIN 6.8 GM/DL (6.4-8.2)
[2021-08-31] MEDS: cloNIDine 0.1MG TABLET PO SCH ×3 (09:35→20:07)
[2021-08-31] MEDS: LANTHANUM CARBONATE 500 MG CHEW TABLET PO SCH ×3 (09:36→18:10)
[2021-08-31] MEDS: METOPROLOL SUCC (TopROL XL) 100MG *XL* TAB PO SCH (09:36)
[2021-08-31] MEDS: HEPARIN SOD (PORCINE) 5000UNITS/ML 1ML VIAL/SYRINGE SC SCH ×2 (09:36→20:05)
[2021-08-31] MEDS: ISOSORBIDE MON. (IMDUR) 60 MG XR TAB PO SCH ×2 (09:36→20:08)
[2021-08-31 10:21] LABS: HEPATITIS B SURFACE ANTIBODY POSITIVE (POSITIVE); HEPATITIS B SURFACE ANTIGEN NEGATIVE (NEGATIVE); HEPATITIS C VIRUS ABY INDEX 0.1 INDEX (<0.8)
[2021-08-31] MEDS: TELMISARTAN 20 MG TAB PO SCH (11:32)
[2021-08-31] MEDS: ACETAMINOPHEN TAB 650MG DOSE (2X325MG) PO PRN (20:05)
[2021-09-01 04:00] VITALS: BP 148/87
[2021-09-01] MEDS ORDERED: SODIUM CHLORIDE 0.9% 1000ML IV PRN (07:00)
[2021-09-01] MEDS ORDERED: LIDOCAINE 1% SDV 5ML VIAL SC PRN (07:00)
[2021-09-01 08:00] VITALS: BP 179/99
[2021-09-01] MEDS: LANTHANUM CARBONATE 500 MG CHEW TABLET PO SCH ×3 (08:00→17:24)
[2021-09-01 08:34] LABS: HEMATOCRIT 32.7 % (36.0-47.0); HEMOGLOBIN 10.7 g/dl (12.0-15.5); MEAN CORPUSCULAR HEMOGLOBIN 29.2 pg (27.0-33.0); MEAN CORPUSCULAR HGB CONC 32.7 g/dl (32.0-36.5); MEAN CORPUSCULAR VOLUME 89.1 fl (80.0-96.0); PLATELET COUNT, AUTOMATED 147 10^3/uL (150-450); RED BLOOD COUNT 3.67 10^6/uL (4.00-5.40); WHITE BLOOD COUNT 6.9 10^3/uL (4.0-10.0)
[2021-09-01] MEDS: HEPARIN SOD (PORCINE) 5000UNITS/ML 1ML VIAL/SYRINGE SC SCH ×2 (09:00→20:04)
[2021-09-01 09:01] LABS: ALBUMIN 2.6 GM/DL (3.2-5.2); CALCIUM LEVEL 8.9 MG/DL (8.5-10.1); CREATININE FOR GFR 7.94 MG/DL (0.55-1.30); GLOMERULAR FILTRATION RATE 6.2 (>60); POTASSIUM SERUM 5.1 MEQ/L (3.5-5.1)
[2021-09-01] MEDS: TELMISARTAN 20 MG TAB PO SCH (11:58)
[2021-09-01] MEDS: ISOSORBIDE MON. (IMDUR) 60 MG XR TAB PO SCH ×3 (11:58→20:08)
[2021-09-01] MEDS: ACETAMINOPHEN TAB 650MG DOSE (2X325MG) PO PRN ×2 (11:59→20:03)
[2021-09-01] MEDS: cloNIDine 0.1MG TABLET PO SCH ×4 (11:59→20:07)
[2021-09-01] MEDS: METOPROLOL SUCC (TopROL XL) 100MG *XL* TAB PO SCH (11:59)
[2021-09-01 16:30] VITALS: BP 142/72
[2021-09-01 20:00] VITALS: BP 158/86
[2021-09-01 23:29] VITALS: BP 156/82
[2021-09-02 03:24] VITALS: BP 139/78
[2021-09-02 06:03] LABS: HEMATOCRIT 32.5 % (36.0-47.0); HEMOGLOBIN 10.4 g/dl (12.0-15.5); MEAN CORPUSCULAR HEMOGLOBIN 28.8 pg (27.0-33.0); PLATELET COUNT, AUTOMATED 133 10^3/uL (150-450); RED BLOOD COUNT 3.61 10^6/uL (4.00-5.40); WHITE BLOOD COUNT 7.4 10^3/uL (4.0-10.0)
[2021-09-02 06:37] LABS: ALBUMIN 2.6 GM/DL (3.2-5.2); CALCIUM LEVEL 8.3 MG/DL (8.5-10.1); CREATININE FOR GFR 6.24 MG/DL (0.55-1.30); GLOMERULAR FILTRATION RATE 8.2 (>60); POTASSIUM SERUM 5.1 MEQ/L (3.5-5.1); TOTAL PROTEIN 6.6 GM/DL (6.4-8.2)
[2021-09-02 08:19] VITALS: BP 156/92
[2021-09-02] MEDS: TELMISARTAN 20 MG TAB PO SCH (08:21)
[2021-09-02] MEDS: ISOSORBIDE MON. (IMDUR) 60 MG XR TAB PO SCH ×2 (08:21→20:10)
[2021-09-02] MEDS: cloNIDine 0.1MG TABLET PO SCH ×3 (08:21→20:10)
[2021-09-02] MEDS: HEPARIN SOD (PORCINE) 5000UNITS/ML 1ML VIAL/SYRINGE SC SCH ×2 (08:22→20:10)
[2021-09-02] MEDS: LANTHANUM CARBONATE 500 MG CHEW TABLET PO SCH ×3 (08:22→17:25)
[2021-09-02] MEDS: METOPROLOL SUCC (TopROL XL) 100MG *XL* TAB PO SCH (08:22)
[2021-09-02 17:25] VITALS: BP 158/95
[2021-09-02 20:00] VITALS: BP 155/91
[2021-09-02] MEDS: ACETAMINOPHEN TAB 650MG DOSE (2X325MG) PO PRN (20:10)
[2021-09-03 04:00] VITALS: BP 148/91
[2021-09-03 05:59] LABS: HEMATOCRIT 33.4 % (36.0-47.0); HEMOGLOBIN 10.7 g/dl (12.0-15.5); MEAN CORPUSCULAR HEMOGLOBIN 28.6 pg (27.0-33.0); MEAN CORPUSCULAR VOLUME 89.3 fl (80.0-96.0); PLATELET COUNT, AUTOMATED 139 10^3/uL (150-450); RED BLOOD COUNT 3.74 10^6/uL (4.00-5.40); WHITE BLOOD COUNT 6.6 10^3/uL (4.0-10.0)
[2021-09-03 06:34] LABS: ALBUMIN 2.4 GM/DL (3.2-5.2); CALCIUM LEVEL 9.1 MG/DL (8.5-10.1); CREATININE FOR GFR 7.93 MG/DL (0.55-1.30); GLOMERULAR FILTRATION RATE 6.2 (>60); POTASSIUM SERUM 5.6 MEQ/L (3.5-5.1); TOTAL PROTEIN 6.8 GM/DL (6.4-8.2)
[2021-09-03] MEDS ORDERED: LIDOCAINE 1% SDV 5ML VIAL SC PRN (07:15)
[2021-09-03] MEDS ORDERED: SODIUM CHLORIDE 0.9% 1000ML IV PRN (07:15)
[2021-09-03] MEDS: HEPARIN SOD (PORCINE) 5000UNITS/ML 1ML VIAL/SYRINGE SC SCH (07:32)
[2021-09-03] MEDS: TELMISARTAN 20 MG TAB PO SCH (07:33)
[2021-09-03] MEDS: LANTHANUM CARBONATE 500 MG CHEW TABLET PO SCH ×2 (07:33→12:36)
[2021-09-03 07:34] VITALS: BP 164/91
[2021-09-03] MEDS: cloNIDine 0.1MG TABLET PO SCH (07:34)
[2021-09-03] MEDS: ISOSORBIDE MON. (IMDUR) 60 MG XR TAB PO SCH (07:35)
[2021-09-03] MEDS: METOPROLOL SUCC (TopROL XL) 100MG *XL* TAB PO SCH (07:36)
[2021-09-03 07:56] VITALS: BP 164/91
[2021-09-03] MEDS ORDERED: CLONI1TA PO (08:57)
[2021-09-03] MEDS ORDERED: TELM1TAB37 PO (08:57)
[2021-09-03] MEDS ORDERED: ISOS1TAB36 PO (08:57)
[2021-09-03] MEDS ORDERED: METO200T28 PO (08:57)
[2021-09-03] MEDS ORDERED: AMLO10TA PO (08:57)
[2021-09-03 12:37] VITALS: BP 152/92
== END 2021-09-03 16:23 | disposition home health service (06) | DRG 291 ==
LOC: M ED 05:03 → M PCU 07:33 → ENRESERV 08:15
PROVIDERS: ADMIT Internal Medicine; ATTEND Internal Medicine
PROC: 5A1D70Z Performance of Urinary Filtration, Intermittent, Less than 6 Hours Per Day (ICD-10-PCS; 2021-08-30)
PROC: 0W9F3ZZ Drainage of Abdominal Wall, Percutaneous Approach (ICD-10-PCS; principal; 2021-08-31)
DX: I13.2 Hypertensive heart and chronic kidney disease with heart failure and with stage 5 chronic kidney disease, or end stage renal disease (principal); N18.6 End stage renal disease; I50.43 Acute on chronic combined systolic (congestive) and diastolic (congestive) heart failure; R18.8 Other ascites; Z99.2 Dependence on renal dialysis; E21.1 Secondary hyperparathyroidism, not elsewhere classified; I16.0 Hypertensive urgency; J45.909 Unspecified asthma, uncomplicated; D64.9 Anemia, unspecified; I27.20 Pulmonary hypertension, unspecified; K76.1 Chronic passive congestion of liver; E87.5 Hyperkalemia; Z91.14 Patient's other noncompliance with medication regimen; Z79.899 Other long term (current) drug therapy; Z88.2 Allergy status to sulfonamides; Z88.8 Allergy status to other drugs, medicaments and biological substances; Z88.0 Allergy status to penicillin; F17.200 Nicotine dependence, unspecified, uncomplicated

== ENCOUNTER → 2021-10-03 | Outpatient (CLI) | payer OTHER, MEDICAID ==
[~2021-10-03] MED LIST changes: +AMLO10TA PO; +CLONI1TA PO
[2021-10-03 10:44] VITALS: BP 162/86
== END ==
LOC: M IRPRO 10:31
PROVIDERS: ATTEND Internal Medicine Nephrology
DX: R18.8 Other ascites (principal); Z53.8 Procedure and treatment not carried out for other reasons

== ENCOUNTER → 2021-10-31 | Outpatient (CLI) | payer OTHER, MEDICAID | LOC: M IRPRO 10:02 | PROVIDERS: ATTEND Internal Medicine Nephrology | DX: R18.8 Other ascites (principal); Z53.8 Procedure and treatment not carried out for other reasons ==

== ENCOUNTER → 2021-11-28 | Outpatient (CLI) | payer OTHER, MEDICAID | LOC: M IRPRO 10:41 | PROVIDERS: ATTEND Internal Medicine Nephrology | DX: R18.8 Other ascites (principal) ==

== ENCOUNTER 2022-03-30 16:20 | Emergency (ER) | payer OTHER, MEDICAID ==
[~2022-03-30] VITALS: Ht 162.6 cm; Wt 60.5 kg
[2022-03-30] MEDS ORDERED: ONDANSETRON 4MG 2ML VIAL IV ONE (16:55)
[2022-03-30] MEDS ORDERED: ACETAMINOPHEN TAB 650MG DOSE (2X325MG) PO ONE ×2 (16:55→21:50)
[2022-03-30 17:44] LABS: BASO # 0.1 10^3/uL (0.0-0.2); BASO % 1.4 % (0.0-1.0); EOS # 0.3 10^3/uL (0.0-0.5); EOS % 3.4 % (0.0-3.0); HEMOGLOBIN 14.1 g/dl (12.0-15.5); LYMPH # 0.9 10^3/uL (1.5-5.0); LYMPH % 11.1 % (24.0-44.0); MEAN CORPUSCULAR HEMOGLOBIN 30.9 pg (27.0-33.0); MEAN CORPUSCULAR HGB CONC 33.6 g/dl (32.0-36.5); MEAN CORPUSCULAR VOLUME 92.1 fl (80.0-96.0); MONO # 0.6 10^3/uL (0.0-0.8); MONO % 6.7 % (2.0-8.0); NEUTROPHILS # 6.5 10^3/uL (1.5-8.5); NEUTROPHILS % 76.6 % (36.0-66.0); PLATELET COUNT, AUTOMATED 143 10^3/uL (150-450); RED BLOOD COUNT 4.56 10^6/uL (4.00-5.40); WHITE BLOOD COUNT 8.5 10^3/uL (4.0-10.0)
[2022-03-30 18:12] LABS: RSV AMPLIFICATION NEGATIVE (NEGATIVE)
[2022-03-30 18:24] LABS: ALBUMIN 3.9 GM/DL (3.2-5.2); BILIRUBIN,DIRECT 0.5 MG/DL (0.0-0.2); BILIRUBIN,TOTAL 1.1 MG/DL (0.2-1.0); CALCIUM LEVEL 8.9 MG/DL (8.5-10.1); CREATININE FOR GFR 6.05 MG/DL (0.55-1.30); GLOMERULAR FILTRATION RATE 8.5 (>60); POTASSIUM SERUM 4.7 MEQ/L (3.5-5.1); TOTAL PROTEIN 9.6 GM/DL (6.4-8.2)
[2022-03-30 19:00] VITALS: O2SAT 96
[2022-03-30] MEDS ORDERED: IBUPROFEN 600MG TAB PO ONE (20:15)
[2022-03-30] MEDS ORDERED: ALBU8.5H INH (21:35)
[2022-03-30] MEDS ORDERED: HOME MED LIST COMPLETE! XX SCH (21:40)
[2022-03-30] MEDS ORDERED: NS 1,000 ML IV SCH (21:55)
[2022-03-30] MEDS ORDERED: BEBTELOVIMAB 175MG 2ML VIAL (EUA) IV ONE (21:55)
[2022-03-30 23:20] VITALS: BP 102/57
[2022-03-31] MEDS ORDERED: NIRMATRELVIR/RITONAVIR (RENAL) CO-PACK (EUA) PO SCH (09:00)
== END 2022-03-30 23:48 | disposition home or self-care (01) ==
LOC: M ED 16:20 → EDBD 16:20 → M ED 23:48
DX: U07.1 COVID-19 (principal); M79.10 Myalgia, unspecified site; R94.31 Abnormal electrocardiogram [ECG] [EKG]; I10 Essential (primary) hypertension; Z87.891 Personal history of nicotine dependence; Z88.0 Allergy status to penicillin; Z88.1 Allergy status to other antibiotic agents; Z88.2 Allergy status to sulfonamides; Z88.6 Allergy status to analgesic agent; Z91.048 Other nonmedicinal substance allergy status; Z79.51 Long term (current) use of inhaled steroids; Z79.899 Other long term (current) drug therapy
CPT/HCPCS: 71045; 80048; 80076; 82550; 83690; 84484; 85025; 87631; 93005; 93041; 96361; 96374; 96375; 99285; J2405

== ENCOUNTER 2023-06-03 12:38 | Emergency (ER) | payer OTHER, MEDICAID ==
[~2023-06-03] VITALS: Ht 162.6 cm; Wt 61.0 kg
[~2023-06-03 12:38] MED LIST changes: +ALBU8.5H INH
[2023-06-03 13:42] LABS: RSV AMPLIFICATION NEGATIVE (NEGATIVE)
[2023-06-03] MEDS ORDERED: ACETAMINOPHEN TAB 650MG DOSE (2X325MG) PO ONE (15:20)
[2023-06-03] MEDS ORDERED: BENZONATATE 100MG CAPSULE PO ONE (15:20)
[2023-06-03] MEDS ORDERED: BENZ200C70 PO (15:45)
[2023-06-03] MEDS ORDERED: TAMI30CA PO (15:45)
[2023-06-03 16:01] VITALS: BP 154/94; TEMP 99; O2SAT 94
== END 2023-06-03 16:06 | disposition home or self-care (01) ==
LOC: M ED 12:38
DX: J09.X2 Influenza due to identified novel influenza A virus with other respiratory manifestations (principal); N18.9 Chronic kidney disease, unspecified; I50.22 Chronic systolic (congestive) heart failure; Z79.52 Long term (current) use of systemic steroids; Z79.899 Other long term (current) drug therapy; Z88.0 Allergy status to penicillin; Z88.1 Allergy status to other antibiotic agents; Z88.2 Allergy status to sulfonamides; Z88.5 Allergy status to narcotic agent; Z88.8 Allergy status to other drugs, medicaments and biological substances; Z91.048 Other nonmedicinal substance allergy status

== ENCOUNTER 2023-06-08 18:22 | Emergency (ER) | payer OTHER, MEDICAID ==
[~2023-06-08] VITALS: Ht 162.6 cm; Wt 61.0 kg
[~2023-06-08 18:22] MED LIST changes: +BENZ200C70 PO; +TAMI30CA PO
[2023-06-08] MEDS ORDERED: methylPREDNISolone 125MG 2ML VIAL IV ONE (20:00)
[2023-06-08] MEDS ORDERED: ACETAMINOPHEN TAB 650MG DOSE (2X325MG) PO ONE (20:00)
[2023-06-08] MEDS ORDERED: BENZONATATE 100MG CAPSULE PO ONE (20:00)
[2023-06-08] MEDS: IPRATROPIUM 0.5MG/ALBUTEROL 2.5MG INH SOL UD 3ML (DUONEB) NEB SCH ×2 (20:32→20:33)
[2023-06-08 21:52] VITALS: TEMP 98.6
[2023-06-08] MEDS ORDERED: cefTRIAXone SOD 1 GM in D5W MINI-BAG PLUS 50 ML IV ONE (22:35)
[2023-06-08 22:53] LABS: BASO % 0.3 % (0.0-1.0); EOS # 0.1 10^3/uL (0.0-0.5); HEMATOCRIT 29.2 % (36.0-47.0); HEMOGLOBIN 9.6 g/dl (12.0-15.5); LYMPH # 0.8 10^3/uL (1.5-5.0); LYMPH % 8.3 % (24.0-44.0); MEAN CORPUSCULAR HEMOGLOBIN 30.5 pg (27.0-33.0); MEAN CORPUSCULAR HGB CONC 32.9 g/dl (32.0-36.5); MEAN CORPUSCULAR VOLUME 92.7 fl (80.0-96.0); MONO # 0.4 10^3/uL (0.0-0.8); NEUTROPHILS # 8.4 10^3/uL (1.5-8.5); PLATELET COUNT, AUTOMATED 196 10^3/uL (150-450); RED BLOOD COUNT 3.15 10^6/uL (4.00-5.40)
[2023-06-08 23:22] LABS: PROCALCITONIN 31.01 ng/ml
[2023-06-08 23:24] LABS: CALCIUM LEVEL 7.5 MG/DL (8.5-10.1); CREATININE FOR GFR 8.18 MG/DL (0.55-1.30); GLOMERULAR FILTRATION RATE 5.9 (>60); POTASSIUM SERUM 3.2 MMOL/L (3.5-5.1)
[2023-06-09] VITALS: BP 158/86; O2SAT 98
[2023-06-09] MEDS ORDERED: CEFD1CAP9 PO (01:04)
[2023-06-09] MEDS ORDERED: ONDA4TAB6 PO (01:05)
== END 2023-06-09 01:31 | disposition home or self-care (01) ==
LOC: M ED 18:22 → EDBD 18:22 → M ED 06-09 01:31
DX: J12.9 Viral pneumonia, unspecified (principal); R00.0 Tachycardia, unspecified; I25.2 Old myocardial infarction; I10 Essential (primary) hypertension; F17.200 Nicotine dependence, unspecified, uncomplicated; F12.10 Cannabis abuse, uncomplicated; Z79.52 Long term (current) use of systemic steroids; Z79.2 Long term (current) use of antibiotics; Z79.899 Other long term (current) drug therapy; Z88.0 Allergy status to penicillin; Z88.2 Allergy status to sulfonamides; Z88.5 Allergy status to narcotic agent; Z91.048 Other nonmedicinal substance allergy status
CPT/HCPCS: 71045; 80048; 83605; 84145; 85025; 87040; 87486; 87581; 87633; 87798; 93005; 94640; 96365; 96375; 99284; J0696; J2930

== ENCOUNTER → 2024-02-13 | Outpatient (REF) | payer OTHER, MEDICAID, MEDICARE ==
[~2024-02-13] MED LIST changes: +CEFD1CAP9 PO; +METO200T15 PO; -METO200T28 PO; +ONDA-282 PO; -ONDA4TAB6 PO
== END ==
LOC: EEVIPCON 17:21 → M SFHCDERM 17:21
PROVIDERS: ATTEND Physician Assistant
DX: L01.00 Impetigo, unspecified (principal)